=== PATIENT | male | born 1940 | race Caucasian/White ===

== ENCOUNTER 2021-03-11 13:50 | Outpatient (REF) | payer MEDICARE, OTHER, SELFPAY ==
--- NOTE | ~2021-03-11 | US_ITS ---
EXAMINATION: US RETROPERITONEAL LIMITED (RENAL ONLY) CLINICAL INFORMATION: Ligament neoplasm of left kidney. History of left kidney cryoablation. COMPARISON: Renals only ultrasound stated 03/11/2020 and 09/13/2018. CT abdomen and pelvis without and with contrast dated 03/25/2019. KUB dated 02/21/2018. X-ray abdomen dated 03/27/2017. MRI abdomen without and with contrast dated 12/26/2016. TECHNIQUE: Real-time imaging of the kidneys. Technically difficult study secondary to bowel gas. FINDINGS: RIGHT KIDNEY: 12.5 x 5.4 x 5.3 cm (SAG x AP x TRV). The kidney is normal in size, contour, and echogenicity. Renal cortical thickness is normal. There may be small peripelvic cysts. There is a 1 x 1.1 x 0.8 cm simple cortical cyst in the midpole. No renal calculi or hydronephrosis. LEFT KIDNEY: Left kidney is difficult to visualize. 11.8 x 5.8 x 5.4 cm (SAG x AP x TRV). The kidney is normal in size contour and echogenicity. There is cortical thinning or scarring in the lower pole of the left kidney. There is a duplicated left renal collecting system. There may be small peripelvic cysts. No mass or hydronephrosis is seen. US/US renal BI IMPRESSION: The left kidney is difficult to visualize by ultrasound. Bilateral renal cysts. No mass seen.
== END 2021-03-11 13:51 | disposition home or self-care (01) ==
LOC: HO.HMGCX 13:50
PROVIDERS: Visit Provider Urology
DX: C64.2 Malignant neoplasm of left kidney, except renal pelvis (principal)
CPT/HCPCS: 76775

== ENCOUNTER → 2021-03-22 10:24 | Outpatient (BNVA) | payer MEDICARE, OTHER, SELFPAY | PROVIDERS: PCP Nurse Practitioner Family; Visit Provider Urology | DX: C64.2 Malignant neoplasm of left kidney, except renal pelvis (principal) | CPT/HCPCS: 99212 ==

== ENCOUNTER 2022-03-17 11:18 | Outpatient (REF) | payer MEDICARE, OTHER, SELFPAY ==
--- NOTE | ~2022-03-17 | US_ITS ---
EXAMINATION: US RETROPERITONEAL LIMITED (RENAL ONLY) CLINICAL INFORMATION: Calculus of kidney. COMPARISON: Renal ultrasound 03/11/2021, renal ultrasound 03/11/2020, CT abdomen and pelvis 03/25/2019, x-ray KUB 02/21/2018 TECHNIQUE: Real-time imaging of the kidneys. FINDINGS: RIGHT KIDNEY: 11.8 x 5.4 x 5.1 cm (SAG x AP x TRV). The kidney is normal in size, contour, and echogenicity. Renal cortical thickness is normal. There is a 1 cm cyst exophytic to the midpole. No renal calculi or hydronephrosis. LEFT KIDNEY: 10.2 x 4.7 x 5.8 cm (SAG x AP x TRV). The kidney is normal in size, contour, and echogenicity. There is cortical thinning or scarring of the lower pole the left kidney. There are small peripelvic cysts measuring 1 cm in the lower pole and 7 x 10 mm in the upper pole. No renal calculi or hydronephrosis. US/US renal BI IMPRESSION: Small bilateral renal cysts. Cortical thinning or scarring of the lower pole of the left kidney..
== END 2022-03-17 11:19 | disposition home or self-care (01) ==
LOC: HO.US 11:18
PROVIDERS: Visit Provider Urology
DX: N20.0 Calculus of kidney (principal)
CPT/HCPCS: 76775

== ENCOUNTER → 2022-03-28 10:50 | Outpatient (BNVA) | payer MEDICARE, OTHER, SELFPAY | PROVIDERS: PCP Nurse Practitioner Family; Visit Provider Urology | DX: C64.2 Malignant neoplasm of left kidney, except renal pelvis (principal) | CPT/HCPCS: 99212 ==

== ENCOUNTER 2022-12-21 05:52 | Emergency (ER) | payer MEDICARE, OTHER, SELFPAY ==
--- NOTE | ~2022-12-21 | CT_ITS ---
EXAMINATION: CT HEAD WITHOUT CONTRAST CLINICAL INFORMATION: Altered mental status, head strike. COMPARISON: Head CT from 03/25/2017. TECHNIQUE: Contiguous axial imaging was performed from the skull base to vertex without intravenous administration of contrast. This CT examination was performed using dose optimization techniques as appropriate, variously including the following: *Automated exposure control *Adjustment of mA and/or kV according to patient size (this includes techniques or standardized protocols for targeted exams where dose is matched to indication/reason for exam; i.e. extremities or head) *Use of iterative reconstruction technique DLP: 785 mGy-cm FINDINGS: No evidence of intracranial hemorrhage, extra-axial fluid collection, focal mass effect or midline shift. The mendoza-white matter differentiation is maintained. Chronic mild patchy hypoattenuation within the supratentorial white matter is likely sequela of chronic microangiopathy. No acute findings within the posterior fossa. The cerebellar tonsils are in normal position. No calvarial fracture. The mastoid air cells are well aerated. Mild mucosal thickening of frontal sinus as well as multiple ethmoid air cells and sphenoid sinus. Several mucous retention cysts are present within maxillary sinuses (also present on 03/25/2017). No air-fluid levels within the visualized paranasal sinuses. The orbits, globes and temporomandibular joints are unremarkable. CT/CT head/brain wo IV con IMPRESSION: No acute intracranial pathology compared to prior head CT from 03/25/2017.
[2022-12-21 05:58] VITALS: BP 170/90; BP 186/89; PULSE 48; PULSE 50; RESP 12; TEMP 36.6; O2SAT 100; O2SAT 99; BMI 25.7
--- NOTE | 2022-12-21 06:04 | ECG_ITS ---
Test Reason : AMS Blood Pressure : / mmHG Vent. Rate : 047 BPM Atrial Rate : 047 BPM P-R Int : 204 ms QRS Dur : 104 ms QT Int : 474 ms P-R-T Axes : 060 044 054 degrees QTc Int : 419 ms Sinus bradycardia Otherwise normal ECG When compared with ECG of 25-MAR-2017 16:21, T wave amplitude has decreased in Lateral leads Referred By: Generic ED Physician Electronically Signed By:Javier Gutierrez
[2022-12-21 06:22] LABS: Basophils Percent Auto 0.7 % (0-2); Eosinophils Absolute Auto 0.2 X10*3/uL (0.0-0.4); Eosinophils Percent Auto 2.9 % (0-4); Hematocrit 39.2 % (42.0-52.0); Hemoglobin 14.1 g/dl (14.0-18.0); Imm Gran Abs Auto 0.02 X10*3/uL (0.00-0.03); Imm Gran Pct Auto 0.3 % (0.0-0.4); Lymphocytes Absolute Auto 1.7 X10*3/uL (1.2-4.9); Lymphocytes Percent Auto 28.9 % (20-40); MANUAL DIFF FLAG NO; Mean Corpuscular Hemoglobin 29.5 pg (27.0-33.0); Mean Platelet Volume 9.8 fL (9.4-12.4); Monocytes Absolute Auto 0.5 X10*3/uL (0.1-1.2); Monocytes Percent Auto 8.4 % (2-11); Neutrophils Absolute Auto 3.4 x10*3/uL (2.0-8.3); Neutrophils Percent Auto 58.8 % (45-73); Platelet Count 198 X10*3/uL (160-400); Red Blood Count 4.78 X10*6/uL (4.60-5.80); Red Cell Distribution Width 12.7 % (11.0-16.0); White Blood Count 5.8 X10*3/uL (4.8-10.8)
--- NOTE | 2022-12-21 06:33 | PC.NURSE ---
Pt alert to verbal stimuli and oriented to self. at bedside providing history as pt is not responding to TW questions. Will respond to 's questions appropriately. reports This is not him. He is very active . Pt lives a very active lifestyle. Walks 1.5 miles daily and is able to perform own ADL's independently according to the . This morning when awaken pt seemed more confused than usual and not responding as usual. Requested medical care to the . Breaths are even, regular, and unlabored. RR 12bpm. Sinus bennett on monitor with HR of 47. Abd soft and non tender. Skin is warm, pink, and dry. No swelling or edema noted. Incontinent of urine. Briefs removed. Condom cath applied in order to obtain a urine sample. Labs drawn and sent. 20G IV line established on the left ac. Will continue to monitor. Pending physician eval.
[2022-12-21 06:34] LABS: COVID-19 Test Negative (Negative); IDNOW Serial# 6674DD1D
[2022-12-21 06:38] LABS: Alanine Aminotransferase 16 U/L (0-40); Albumin Level 4.1 g/dL (3.5-5.0); Alkaline Phosphatase 65 U/L (39-117); Anion Gap 13 (12-20); Aspartate Amino Transferase 16 U/L (5-37); Bilirubin Total 0.9 mg/dL (0.0-1.0); Blood Urea Nitrogen 11 mg/dL (9-16); Calcium 9.1 mg/dL (8.4-10.2); Carbon Dioxide 26 mmol/L (22-29); Chloride 101 mmol/L (96-108); Creatinine Clr Calc Pharmacy 78.5; Estimated Glomerular Filt Rate > 60; Glucose Random 89 mg/dL (60-115); Potassium 4.1 mmol/L (3.3-5.1); Sodium 136 mmol/L (135-145)
--- NOTE | 2022-12-21 07:10 | PC.NURSE ---
pt is alert and oriented, to self and place-unable to state the name of the hospital or the year, pt does have some confusion at baseline per but pt has not been going to the doctors in a couple of years, no visible facial droop, no visible hand drift, hand grasp strong and equal, and moving all extremities. pt does report now that he bumped his head but does not really remember how-thinks he might have fallen, had a headache at one point and reports pt stating that he had nausea around 0500. denies pain and nausea at this time. sinus to sinus bennett on the monitor raning from 50-higher 40's.
--- NOTE | 2022-12-21 07:10 | PC.NURSE ---
Patient states now that he hit his head this morning and saw stars. Patient is awake and speaking to staff and . at bedside and states that this morning he woke up more confused than usual and that he was feeling sick and wanted to come in and see the doctor.
--- NOTE | 2022-12-21 07:30 | ED_ITS ---
HPI - Nausea/Vomiting/Diarrhea General Chief complaint: Altered Mental Status Stated complaint: Abd Pain Time Seen by Provider: 12/21/22 07:17 Source: patient and family (, [place]) Mode of arrival: EMS Limitations: other (Memory deficits) History of Present Illness HPI Narrative: 82-year-old male who presents emergency department for evaluation of nausea and possible fall with head injury. According to his , she sleeps on a sofa downstairs in the patient sleeps in a bed upstairs. The patient normally has no complaints but this morning he was complaining of nausea and not feeling well at around 05:00 hours. He told his that he wanted to go to the hospital by ambulance which is very unusual. Here in the emergency department the patient told me that he fell and hit his head however the did not witness this. The patient does have difficulty with memory and has not been diagnosed with d ementia but according to the , he does not sees his doctor. The is also concerned that the patient has poor nutrition and that he may be B12 deficient. The patient told me that he is feeling well, his nausea resolved any wants to go home. Related Data Allergies Allergy/AdvReac Type Severity Reaction Status Date / Time No Known Allergies Allergy Verified 03/28/22 11:04 [No Known Allergies*] tramadol AdvReac Unknown Severe Verified 03/28/22 11:04 Constipation Review of Systems Review of Systems: Yes all other systems are reviewed and are negative [facility] Past Medical History [facility] Narrative: Social history: He lives with his . He does not smoke cigarettes, drink alcohol or use drugs. Medical History H/O urinary retention Left inguinal hernia Malignant neoplasm of left kidney Renal cell carcinoma of left kidney Renal mass Right inguinal hernia Surgical History History of surgery Social History Social History Alcohol intake: never Smoked in Last 30 Days: No Use of substances other than those prescribed or required for medical reasons: No Advance Directives: Yes Advance Directives Information Provided: No Advance Directives on File: No Physical Exam Vital Signs: Vital Signs: Last Vital Signs Temp 97.9 F 12/21/22 05:58 Pulse 54 12/21/22 07:44 Resp 18 12/21/22 07:44 BP 214/105 H 12/21/22 07:44 Pulse Ox 100 12/21/22 07:44 O2 Del Method 12/21/22 07:44 BMI result Body Mass Index 25.7 Const: Other: Awake, alert, male patient does not appear to be in distress, does defer to his to answer most questions Orientation/consciousness: oriented to person HEENT: Head: Yes normal to inspection, Yes normocephalic and Yes atraumatic Ears: external ears normal General nose exam: Normal external nose present Face and sinus: Yes normal facial exam Mouth: Normal oral and palatal mucosa present Throat: Yes posterior oropharynx normal Eyes: General: appearance normal, both eyes and all related structures Pupils: Equal, round and reactive pupils present Neck: Neck: Yes normal visual inspection, Yes no lymphadenopathy, Yes trachea midline and Yes supple Chest: Chest palpation & inspection: normal inspection of the chest and normal palpation of entire chest wall Resp: Effort & Inspection: normal respiratory effort and able to speak in complete sentences Auscultation: clear to auscultation bilaterally Cardio: Rate: regular rate Rhythm: regular rhythm Heart sounds: S1 normal heart sound present, S2 normal heart sound present and no murmurs GI: Inspection: Yes normal to inspection Palpation (GI): Soft to palpation, nontender and no guarding Auscultation: normal bowel sounds : General: Yes no CVA tenderness Back/Spine/Pelvis: Back: no CVA tenderness Neuro: General: oriented to person Cranial nerves: Yes CN's II-XII intact bilaterally and Yes Equal, round and reactive pupils present Cognition (Neuro): normal cognition Motor exam (neuro): 5/5 motor strength present throughout Extrem: General: Yes normal to inspection Psych: Appearance: grossly normal Speech and movement: Normal speech and movement present Affect: normal affect Attitude: cooperative Medical Decision Making Medical Decision Making MDM Narrative: 82-year-old male who presents emergency department for evaluation of nausea and possible fall with head injury. The patient does have memory deficits and undiagnosed dementia according to his . The does not live in the same room as the patient and did not witness the fall however the patient was complaining of not feeling well and nausea which has resolved. Patient's physical examination was unremarkable. Vital signs did reveal an elevated blood pressure of 186/89 with bradycardia with a heart rate of 48 otherwise were unremarkable. His exam was also unremarkable with a normal neurologic exam and no obvious evidence for head injury. I ordered a laboratory evaluation to include CBC, CMP, COVID-19, urinalysis, B12 and folate. 0739: Laboratory interpretation: CBC normal. CMP normal. COVID-19 negative. B12 and folate levels pending. Twelve EKG revealed a sinus bradycardia otherwise was unremarkable. 0820: The patient's CT scan of the brain revealed no acute findings, patient has chronic microangiopathic changes which is consistent with his age. The patient did have elevated blood pressures which could be related to stress and anxiety. I did discuss this with the patient's . I advised the to get a home blood pressure cough and to check the patient's blood pressure once in the morning for the next 2 weeks and discuss these readings with his PCP to see if he needs to be on blood pressure medication shots. Lab Data [facility] Lab Attestation statement: I reviewed the patient's lab results. See [facility] for discussion 12/21/22 06:14 12/21/22 06:14 Labs: Lab Results 12/21/22 12/21/22 12/21/22 Range/Units 06:14 06:14 06:14 WBC 5.8 (4.8-10.8) X10*3/uL RBC 4.78 (4.60-5.80) X10*6/uL Hgb 14.1 (14.0-18.0) g/dl Hct 39.2 L (42.0-52.0) % MCV 82.0 (80.0-98.0) fL MCH 29.5 (27.0-33.0) pg MCHC 36.0 (31.0-36.0) g/dl RDW 12.7 (11.0-16.0) % Plt Count 198 (160-400) X10*3/uL MPV 9.8 (9.4-12.4) fL Immature Gran % (Auto) 0.3 (0.0-0.4) % Neut % (Auto) 58.8 (45-73) % Lymph % (Auto) 28.9 (20-40) % Eagle % (Auto) 8.4 (2-11) % Eos % (Auto) 2.9 (0-4) % Baso % (Auto) 0.7 (0-2) % Lymph # (Auto) 1.7 (1.2-4.9) X10*3/uL Eagle # (Auto) 0.5 (0.1-1.2) X10*3/uL Eos # (Auto) 0.2 (0.0-0.4) X10*3/uL Baso # (Auto) 0.0 (0.0-0.2) X10*3/uL Abs Immat Gran (auto) 0.02 (0.00-0.03) X10*3/uL Absolute Neuts (auto) 3.4 (2.0-8.3) x10*3/uL Absolute Nucleated RBC 0.000 (0.0-0.012) X10*3/uL Nucleated RBC % (auto) 0.0 (0.0-0.2) /100WBC Sodium 136 (135-145) mmol/L Potassium 4.1 (3.3-5.1) mmol/L Chloride 101 (96-108) mmol/L Carbon Dioxide 26 (22-29) mmol/L Anion Gap 13 (12-20) BUN 11 (9-16) mg/dL Creatinine 0.81 (0.5-1.4) mg/dL Estim Creat Clear Calc 78.5 Estimated GFR > 60 Random Glucose 89 (60-115) mg/dL Calcium 9.1 (8.4-10.2) mg/dL Total Bilirubin 0.9 (0.0-1.0) mg/dL AST 16 (5-37) U/L ALT 16 (0-40) U/L Alkaline Phosphatase 65 (39-117) U/L Total Protein 6.0 L (6.5-8.0) g/dL Albumin 4.1 (3.5-5.0) g/dL Urine Color Urine Appearance Urine pH (5.0-9.0) Ur Specific [place] (1.005-1.025) Urine Protein (Neg-Trace) mg/dL Urine Glucose (UA) (Negative) mg/dL Urine Ketones (Negative) mg/dL Urine Blood (Negative) Urine Nitrite (Negative) Ur Leukocyte Esterase (Negative) COVID-19 (FRANCES) Negative (Negative) COVID-19 Clin Com See Note 12/21/22 Range/Units 07:54 WBC (4.8-10.8) X10*3/uL RBC (4.60-5.80) X10*6/uL Hgb (14.0-18.0) g/dl Hct (42.0-52.0) % MCV (80.0-98.0) fL MCH (27.0-33.0) pg MCHC (31.0-36.0) g/dl RDW (11.0-16.0) % Plt Count (160-400) X10*3/uL MPV (9.4-12.4) fL Immature Gran % (Auto) (0.0-0.4) % Neut % (Auto) (45-73) % Lymph % (Auto) (20-40) % Eagle % (Auto) (2-11) % Eos % (Auto) (0-4) % Baso % (Auto) (0-2) % Lymph # (Auto) (1.2-4.9) X10*3/uL Eagle # (Auto) (0.1-1.2) X10*3/uL Eos # (Auto) (0.0-0.4) X10*3/uL Baso # (Auto) (0.0-0.2) X10*3/uL Abs Immat Gran (auto) (0.00-0.03) X10*3/uL Absolute Neuts (auto) (2.0-8.3) x10*3/uL Absolute Nucleated RBC (0.0-0.012) X10*3/uL Nucleated RBC % (auto) (0.0-0.2) /100WBC Sodium (135-145) mmol/L Potassium (3.3-5.1) mmol/L Chloride (96-108) mmol/L Carbon Dioxide (22-29) mmol/L Anion Gap (12-20) BUN (9-16) mg/dL Creatinine (0.5-1.4) mg/dL Estim Creat Clear Calc Estimated GFR Random Glucose (60-115) mg/dL Calcium (8.4-10.2) mg/dL Total Bilirubin (0.0-1.0) mg/dL AST (5-37) U/L ALT (0-40) U/L Alkaline Phosphatase (39-117) U/L Total Protein (6.5-8.0) g/dL Albumin (3.5-5.0) g/dL Urine Color Yellow Urine Appearance Clear Urine pH 8.0 (5.0-9.0) Ur Specific [place] <= 1.005 (1.005-1.025) Urine Protein Negative (Neg-Trace) mg/dL Urine Glucose (UA) Negative (Negative) mg/dL Urine Ketones Negative (Negative) mg/dL Urine Blood Negative (Negative) Urine Nitrite Negative (Negative) Ur Leukocyte Esterase Negative (Negative) COVID-19 (FRANCES) (Negative) COVID-19 Clin Com Independent Interpretation I performed an independent interpretation of an: EKG Interpretation: A 12 EKG done at 0610 hours interpreted by me as follows: Sinus bradycardia with a rate of 47, prolonged NE interval of 204 milliseconds, prolonged QRS of 104 milliseconds, normal QTC of 419 milliseconds, no ST segment elevation, no ST segment depression, no PVCs, no PACs. Radiology Impression Discussion of test interpretation with radiology: I have reviewed the radiologist's reading. Radiologist Impression: CT head/brain wo IV con FINDINGS: No evidence of intracranial hemorrhage, extra-axial fluid collection, focal mass effect or midline shift. The mendoza-white matter differentiation is maintained. Chronic mild patchy hypoattenuation within the supratentorial white matter is likely sequela of chronic microangiopathy. No acute findings within the posterior fossa. The cerebellar tonsils are in normal position. No calvarial fracture. The mastoid air cells are well aerated. Mild mucosal thickening of frontal sinus as well as multiple ethmoid air cells and sphenoid sinus. Several mucous retention cysts are present within maxillary sinuses (also present on 03/25/2017). No air-fluid levels within the visualized paranasal sinuses. The orbits, globes and temporomandibular joints are unremarkable. IMPRESSION: No acute intracranial pathology compared to prior head CT from 03/25/2017. Dictated By:John Rae MDSigned By:<Electronically signed by John Rae MD in [place]>12/21/22 0749 Discharge Plan Discharge Clinical Impression: Nausea, Elevated blood pressure reading Closed head injury Qualifiers: Encounter type: initial encounter Qualified Code(s): S09.90XA - Unspecified injury of head, initial encounter Patient Disposition: Home, Self-Care Instructions: Head Injury (ED) Additional Instructions: Your blood work was normal pain Your CT scan of the brain without IV contrast did not reveal any skull fracture or bleeding in the brain from your fall. You did have elevated blood pressure readings here in the emergency department, this can sometimes be caused by stress and anxiety when you here in the emergency department. I want you to purchase an automatic blood pressure cuff that you can use at home. I want you to check your blood pressure in the morning for the next 2 weeks, write these readings down. You need to follow-up with your doctor in 2 weeks to review these readings and to determine if you need to be on blood pressure medications. If you get started on a blood pressure medication, it will take 4-6 weeks for the medication to take effect and lower your blood pressure pain. Lowering someone's blood pressure to rapidly can cause side effects such as lig htheadedness, dizziness and weakness.
[2022-12-21 07:44] VITALS: BP 214/105; PULSE 54; RESP 18; O2SAT 100
[2022-12-21 08:03] LABS: Appearance Urine Clear; Color Urine Yellow; Glucose Urine UA Negative (Negative); Leukocyte Esterase Urine Negative (Negative); Nitrite Urine Negative (Negative); Specific Gravity - Urine <= 1.005 (1.005-1.025); Urine Blood Negative (Negative); Urine Ketones Negative (Negative); Urine Protein Negative (Neg-Trace)
[2022-12-21 08:37] VITALS: BP 174/81; PULSE 49; RESP 18
[2022-12-21 09:28] LABS: Folate 12.8 ng/mL (> or = 4.0); Vitamin B12 427 pg/mL (200-900)
== END 2022-12-21 08:51 | disposition home or self-care (01) ==
PROVIDERS: Emergency Provider Emergency Medicine Emergency Medical Services; PCP Nurse Practitioner Family
DX: S09.90XA Unspecified injury of head, initial encounter (principal); W19.XXXA Unspecified fall, initial encounter; Z20.822 Contact with and (suspected) exposure to COVID-19; Y93.9 Activity, unspecified; Y92.013 Bedroom of single-family (private) house as the place of occurrence of the external cause; Y99.9 Unspecified external cause status
CPT/HCPCS: 70450; 80053; 81003; 82607; 82746; 85025; 87635; 93005; 99284

== ENCOUNTER 2023-02-19 07:27 | Outpatient (REF) | payer MEDICARE, OTHER, SELFPAY ==
[2023-02-19 11:20] LABS: MANUAL DIFF FLAG NO
[2023-02-19 11:37] LABS: Basophils Absolute Auto 0.1 X10*3/uL (0.0-0.2); Basophils Percent Auto 0.9 % (0-2); Eosinophils Absolute Auto 0.2 X10*3/uL (0.0-0.4); Eosinophils Percent Auto 3.4 % (0-4); Hematocrit 40.8 % (42.0-52.0); Imm Gran Abs Auto 0.02 X10*3/uL (0.00-0.03); Imm Gran Pct Auto 0.4 % (0.0-0.4); Lymphocytes Absolute Auto 1.5 X10*3/uL (1.2-4.9); Lymphocytes Percent Auto 25.6 % (20-40); Mean Corpuscular HGB Conc 34.3 g/dl (31.0-36.0); Mean Corpuscular Hemoglobin 28.6 pg (27.0-33.0); Mean Corpuscular Volume 83.3 fL (80.0-98.0); Mean Platelet Volume 9.3 fL (9.4-12.4); Monocytes Absolute Auto 0.4 X10*3/uL (0.1-1.2); Monocytes Percent Auto 7.6 % (2-11); Neutrophils Absolute Auto 3.5 x10*3/uL (2.0-8.3); Neutrophils Percent Auto 62.1 % (45-73); Platelet Count 198 X10*3/uL (160-400); Red Cell Distribution Width 12.7 % (11.0-16.0); White Blood Count 5.7 X10*3/uL (4.8-10.8)
[2023-02-19 11:52] LABS: Alanine Aminotransferase 16 U/L (0-40); Albumin Level 4.6 g/dL (3.5-5.0); Alkaline Phosphatase 67 U/L (39-117); Anion Gap 10 (12-20); Aspartate Amino Transferase 18 U/L (5-37); Blood Urea Nitrogen 10 mg/dL (9-16); Calcium 9.4 mg/dL (8.4-10.2); Carbon Dioxide 32 mmol/L (22-29); Chloride 96 mmol/L (96-108); Cholesterol 225 mg/dL; Estimated Glomerular Filt Rate > 60; Glucose Fasting 94 mg/dL (60-99); HDL Cholesterol 70 mg/dL; LDL Cholesterol Calculated 134 mg/dl; Potassium 4.7 mmol/L (3.3-5.1); Sodium 133 mmol/L (135-145); Total Protein 6.7 g/dL (6.5-8.0); Triglycerides 105 mg/dL
[2023-02-19 12:20] LABS: TSH reflex Free T4 5.18 uIU/mL (0.32-4.0); Vitamin B12 439 pg/mL (200-900)
[2023-02-19 13:11] LABS: Free T4 (Free Thyroxine) 1.09 ng/dL (0.71-1.85)
[2023-02-24 15:48] LABS: Vitamin D 25-OH, D2 <4 ng/mL; Vitamin D 25-OH, D3 26 ng/mL; Vitamin D 25-OH, Total 26 ng/mL (30-100)
== END 2023-02-19 07:28 | disposition home or self-care (01) ==
LOC: HO.HMGCLDS 07:27
PROVIDERS: PCP Internal Medicine; Visit Provider Internal Medicine
DX: Z00.01 Encounter for general adult medical examination with abnormal findings (principal); R03.0 Elevated blood-pressure reading, without diagnosis of hypertension; G47.9 Sleep disorder, unspecified; R41.0 Disorientation, unspecified; R53.83 Other fatigue; Z13.220 Encounter for screening for lipoid disorders
CPT/HCPCS: 36415; 80053; 80061; 82306; 82607; 84439; 84443; 85025

== ENCOUNTER 2023-02-20 12:55 | Outpatient (REF) | payer MEDICARE, OTHER, SELFPAY ==
--- NOTE | ~2023-02-20 | US_ITS ---
EXAMINATION: US RETROPERITONEAL LIMITED (RENAL ONLY) CLINICAL INFORMATION: Malignant neoplasm RCC of left kidney, except renal pelvis. COMPARISON: Ultrasound retroperitoneal limited (renal only) 03/17/2022, 03/11/2021, 09/13/2018. TECHNIQUE: Real-time imaging of the kidneys. FINDINGS: RIGHT KIDNEY: 12.2 x 4.6 x 5.8 cm (SAG x AP x TRV). The kidney is normal in size, contour, and echogenicity. Renal cortical thickness is normal. No renal calculi or hydronephrosis. 1.2 cm simple cyst in the lateral mid kidney. No follow-up imaging is recommended. LEFT KIDNEY: 12.5 x 5.1 x 5.9 cm (SAG x AP x TRV). The kidney is normal in size, contour, and echogenicity. Renal cortical thickness is normal. No renal calculi or hydronephrosis. 1.4 x 1.3 x 1.2 cm heterogeneous mass in the lower pole without discernible vascularity. This was not seen on the prior 2 ultrasounds but is stable to slightly decreased from the ultrasound of 09/13/2018 when it measured 1.8 x 1.3 x 1.6 cm 2.3 cm simple cyst in the lower pole. No follow-up imaging is recommended. US/US renal BI IMPRESSION: 1.4 cm avascular heterogeneous mass in the lower pole of the left kidney consistent with prior cryoablation as reported. This mass was not distinctly seen on the two most recent ultrasound, however it is stable to mildly increased from 09/13/2018 when it measured 1.8 cm. Continued follow-up is recommended.
== END 2023-02-20 12:56 | disposition home or self-care (01) ==
LOC: HO.HMGCX 12:55
PROVIDERS: PCP Nurse Practitioner Family; Visit Provider Urology
DX: C64.2 Malignant neoplasm of left kidney, except renal pelvis (principal)
CPT/HCPCS: 76775

== ENCOUNTER 2023-03-27 11:24 | Outpatient (REF) | payer MEDICARE, OTHER, SELFPAY | END 2023-03-27 11:25 | disposition home or self-care (01) | LOC: HO.HMGCX 11:24 | PROVIDERS: PCP Internal Medicine; Visit Provider Urology | DX: Z13.89 Encounter for screening for other disorder (principal) ==

== ENCOUNTER 2023-04-02 13:37 | Outpatient (REF) | payer MEDICARE, OTHER, SELFPAY ==
[2023-04-02 17:41] LABS: Anion Gap 13 (12-20); Blood Urea Nitrogen 12 mg/dL (9-16); Carbon Dioxide 23 mmol/L (22-29); Chloride 97 mmol/L (96-108); Estimated Glomerular Filt Rate > 60; Glucose Random 137 mg/dL (60-115); Potassium 4.2 mmol/L (3.3-5.1); Sodium 129 mmol/L (135-145)
[2023-04-02 17:58] LABS: TSH reflex Free T4 4.07 uIU/mL (0.32-4.0)
[2023-04-02 18:31] LABS: Free T4 (Free Thyroxine) 0.92 ng/dL (0.71-1.85)
== END 2023-04-02 13:38 | disposition home or self-care (01) ==
LOC: HO.HMGCLDS 13:37
PROVIDERS: PCP Internal Medicine; Visit Provider Internal Medicine
DX: R79.89 Other specified abnormal findings of blood chemistry (principal); E87.1 Hypo-osmolality and hyponatremia
CPT/HCPCS: 36415; 80048; 84439; 84443

== ENCOUNTER 2023-04-03 13:31 | Emergency (ER) | payer MEDICARE, OTHER, SELFPAY ==
[2023-04-03 13:46] VITALS: BP 128/89; PULSE 58; RESP 18; TEMP 36.4; O2SAT 96; BMI 23.7
--- NOTE | 2023-04-03 13:48 | ED.RECABL ---
HPI - Recheck/Abnormal Lab/Rx General Chief Complaint: Recheck/Abnormal Lab/Rx Stated Complaint: Low Sodium Level Time Seen by Provider: 04/03/23 19:29 Source: patient, family (), RN notes reviewed and old records reviewed Mode of arrival: ambulatory Limitations: other (Patient is a poor historian) History of Present Illness HPI narrative: 82-year-old male past medical history significant for hypothyroidism, history of renal cell carcinoma, dementia presents for evaluation of ?low sodium. ? Patient had outpatient blood work done yesterday He and his received a phone call that the patient's sodium was 129 and he had to get to the emergency department The patient reports that he has no complaints The patient's states that he is baseline confused but she has not noticed any changes mental status He is not on any diuretics The patient's states that he drinks to being glasses of water every morning. Related Data Home Medications Medication Instructions Recorded Confirmed No Known Home Meds 02/16/23 02/16/23 Allergies Allergy/AdvReac Type Severity Reaction Status Date / Time tramadol AdvReac Unknown Severe Verified 04/03/23 13:45 Constipation Review of Systems Constitutional: Constitutional: Reports as per HPI, Denies chills, Denies fatigue, Denies fever(s) and Denies headache(s) ENT: Denies headache(s) Cardiovascular: Cardiovascular: Denies chest pain and Denies dyspnea Respiratory: Respiratory: Denies cough and Denies dyspnea Gastrointestinal: Gastrointestinal: Denies abdominal pain, Denies constipation and Denies vomiting Genitourinary: Genitourinary: Denies difficulty urinating and Denies dysuria Neurologic: Denies headache(s) and Denies focal weakness Endocrine: Endocrine: Denies fatigue [facility] Past Medical History Medical History H/O urinary retention Left inguinal hernia Malignant neoplasm of left kidney Renal cell carcinoma of left kidney Renal mass Right inguinal hernia Surgical History History of surgery Social History Social History Alcohol intake: never Patient Tobacco Use Status: Never used Tobacco Advance Directives: No Advance Directives Information Provided: Yes Cognitive needs: No Hearing needs: No Vision needs: Yes Physical Exam Vital Signs: Vital Signs: Last Vital Signs Temp 96.8 F 04/03/23 17:27 Pulse 51 04/03/23 17:27 Resp 16 04/03/23 17:27 BP 153/99 H 04/03/23 17:27 Pulse Ox 97 04/03/23 17:27 O2 Del Method Room Air 04/03/23 17:27 BMI result Body Mass Index 23.7 Const: General: healthy appearing, comfortable, no acute distress, alert and awake Nutritional Appearance: well nourished Orientation/consciousness: patient oriented x3 HEENT: Head: Yes normocephalic and Yes atraumatic Throat: Yes posterior oropharynx normal Eyes: Eyelids: Yes eyelids normal Conjunctivae: conjunctivae normal Sclerae: sclerae normal Corneas: corneas normal Pupils: Equal, round and reactive pupils present EOM: EOMs intact bilaterally Neck: Neck: Yes full ROM Resp: Effort & Inspection: normal respiratory effort, able to speak in complete sentences and not labored Skin: General skin exam: no rashes or lesions noted and elasticity normal Neuro: General: patient oriented x3 Cranial nerves: Yes CN's II-XII intact bilaterally, Yes Equal, round and reactive pupils present and Yes Bilaterally intact EOM present Cognition (Neuro): normal cognition Course Course Course Narrative: RME - 82 yo male with history of RCC in 2017 with chronic confusion for the last 8-9 months who presents to the ER for evaluation of sodium of 129 on outpatient labs done yesterday. It was 133 a month ago. He is chronically confused per his , but it is mild without any significant changes lately. She has been keeping him hydrated with a couple of Gatorades and a couple glasses of water per day. No seizure activity, N/V/D. Plan: repeat labs, Uosm, Doron Medical Decision Making Medical Decision Making MDM Narrative: 82-year-old male presents for evaluation of hyponatremia. Apparently his outpatient labs were 129. His repeat today was 131. He has had no change in mental status. He is not on any diuretics. I encouraged the to get the patient more Gatorade and electrolyte based fluids instead of just plain drinking water. Will give the patient 1 L of IV fluid/normal saline to help address the hyponatremia, but he will follow-up with his PCP as an outpatient Differential Diagnosis Hyponatremia Hypovolemia SIADH Metabolic abnormality Hypervolemia Lab Data [facility] Lab Attestation statement: I reviewed the patient's lab results. (Sodium of 131. Normal random urine) 04/03/23 13:54 04/03/23 13:54 Labs: Lab Results 04/03/23 04/03/23 04/03/23 Range/Units 13:54 13:54 13:54 WBC 7.5 (4.8-10.8) X10*3/uL RBC 4.36 L (4.60-5.80) X10*6/uL Hgb 12.7 L (14.0-18.0) g/dl Hct 36.1 L (42.0-52.0) % MCV 82.8 (80.0-98.0) fL MCH 29.1 (27.0-33.0) pg MCHC 35.2 (31.0-36.0) g/dl RDW 12.6 (11.0-16.0) % Plt Count 179 (160-400) X10*3/uL MPV 8.6 L (9.4-12.4) fL Immature Gran % (Auto) 0.4 (0.0-0.4) % Neut % (Auto) 66.0 (45-73) % Lymph % (Auto) 23.1 (20-40) % [place] % (Auto) 7.8 (2-11) % Eos % (Auto) 2.3 (0-4) % Baso % (Auto) 0.4 (0-2) % Lymph # (Auto) 1.7 (1.2-4.9) X10*3/uL [place] # (Auto) 0.6 (0.1-1.2) X10*3/uL Eos # (Auto) 0.2 (0.0-0.4) X10*3/uL Baso # (Auto) 0.0 (0.0-0.2) X10*3/uL Abs Immat Gran (auto) 0.03 (0.00-0.03) X10*3/uL Absolute Neuts (auto) 5.0 (2.0-8.3) x10*3/uL Absolute Nucleated RBC 0.000 (0.0-0.012) X10*3/uL Nucleated RBC % (auto) 0.0 (0.0-0.2) /100WBC Sodium 131 L (135-145) mmol/L Potassium 4.5 (3.3-5.1) mmol/L Chloride 98 (96-108) mmol/L Carbon Dioxide 23 (22-29) mmol/L Anion Gap 15 (12-20) BUN 11 (9-16) mg/dL Creatinine 0.73 (0.5-1.4) mg/dL Estim Creat Clear Calc 87.1 Estimated GFR > 60 Random Glucose 98 (60-115) mg/dL Osmolality 270 L (281-305) mosm/kg Calcium 9.3 (8.4-10.2) mg/dL Magnesium 2.0 (1.6-2.6) mg/dL Total Bilirubin 0.4 (0.0-1.0) mg/dL Direct Bilirubin 0.1 (0.0-0.5) mg/dL AST 28 (5-37) U/L ALT 20 (0-40) U/L Alkaline Phosphatase 58 (39-117) U/L Total Protein 6.2 L (6.5-8.0) g/dL Albumin 4.0 (3.5-5.0) g/dL Urine Color Urine Appearance Urine pH (5.0-9.0) Ur Specific [place] (1.005-1.025) Urine Protein (Neg-Trace) mg/dL Urine Glucose (UA) (Negative) mg/dL Urine Ketones (Negative) mg/dL Urine Blood (Negative) Urine Nitrite (Negative) Ur Leukocyte Esterase (Negative) Urine Osmolality (373-1093) mosm/kg Ur Random Sodium mmol/L 04/03/23 04/03/23 04/03/23 Range/Units 17:34 17:34 17:34 WBC (4.8-10.8) X10*3/uL RBC (4.60-5.80) X10*6/uL Hgb (14.0-18.0) g/dl Hct (42.0-52.0) % MCV (80.0-98.0) fL MCH (27.0-33.0) pg MCHC (31.0-36.0) g/dl RDW (11.0-16.0) % Plt Count (160-400) X10*3/uL MPV (9.4-12.4) fL Immature Gran % (Auto) (0.0-0.4) % Neut % (Auto) (45-73) % Lymph % (Auto) (20-40) % [place] % (Auto) (2-11) % Eos % (Auto) (0-4) % Baso % (Auto) (0-2) % Lymph # (Auto) (1.2-4.9) X10*3/uL [place] # (Auto) (0.1-1.2) X10*3/uL Eos # (Auto) (0.0-0.4) X10*3/uL Baso # (Auto) (0.0-0.2) X10*3/uL Abs Immat Gran (auto) (0.00-0.03) X10*3/uL Absolute Neuts (auto) (2.0-8.3) x10*3/uL Absolute Nucleated RBC (0.0-0.012) X10*3/uL Nucleated RBC % (auto) (0.0-0.2) /100WBC Sodium (135-145) mmol/L Potassium (3.3-5.1) mmol/L Chloride (96-108) mmol/L Carbon Dioxide (22-29) mmol/L Anion Gap (12-20) BUN (9-16) mg/dL Creatinine (0.5-1.4) mg/dL Estim Creat Clear Calc Estimated GFR Random Glucose (60-115) mg/dL Osmolality (281-305) mosm/kg Calcium (8.4-10.2) mg/dL Magnesium (1.6-2.6) mg/dL Total Bilirubin (0.0-1.0) mg/dL Direct Bilirubin (0.0-0.5) mg/dL AST (5-37) U/L ALT (0-40) U/L Alkaline Phosphatase (39-117) U/L Total Protein (6.5-8.0) g/dL Albumin (3.5-5.0) g/dL Urine Color Yellow Urine Appearance Clear Urine pH 7.0 (5.0-9.0) Ur Specific [place] 1.010 (1.005-1.025) Urine Protein Negative (Neg-Trace) mg/dL Urine Glucose (UA) Negative (Negative) mg/dL Urine Ketones Negative (Negative) mg/dL Urine Blood Negative (Negative) Urine Nitrite Negative (Negative) Ur Leukocyte Esterase Negative (Negative) Urine Osmolality 264 L (373-1093) mosm/kg Ur Random Sodium 73.0 mmol/L Discharge Plan Discharge Clinical Impression: Acute hyponatremia Patient Disposition: Home, Self-Care Instructions: Hyponatremia (ED) Additional Instructions: Avoid excessive consumption of plain drinking water. Due to the low sodium, you should increase salt intake/fluids with electrolytes such as Gatorade Follow-up with your primary doctor for a repeat sodium level within the next week Prescriptions: No Action No Known Home Meds
[2023-04-03 14:00] LABS: MANUAL DIFF FLAG NO
[2023-04-03 14:01] LABS: Basophils Percent Auto 0.4 % (0-2); Eosinophils Absolute Auto 0.2 X10*3/uL (0.0-0.4); Eosinophils Percent Auto 2.3 % (0-4); Hematocrit 36.1 % (42.0-52.0); Hemoglobin 12.7 g/dl (14.0-18.0); Imm Gran Abs Auto 0.03 X10*3/uL (0.00-0.03); Imm Gran Pct Auto 0.4 % (0.0-0.4); Lymphocytes Absolute Auto 1.7 X10*3/uL (1.2-4.9); Lymphocytes Percent Auto 23.1 % (20-40); Mean Corpuscular HGB Conc 35.2 g/dl (31.0-36.0); Mean Corpuscular Hemoglobin 29.1 pg (27.0-33.0); Mean Corpuscular Volume 82.8 fL (80.0-98.0); Mean Platelet Volume 8.6 fL (9.4-12.4); Monocytes Absolute Auto 0.6 X10*3/uL (0.1-1.2); Monocytes Percent Auto 7.8 % (2-11); Platelet Count 179 X10*3/uL (160-400); Red Blood Count 4.36 X10*6/uL (4.60-5.80); Red Cell Distribution Width 12.6 % (11.0-16.0); White Blood Count 7.5 X10*3/uL (4.8-10.8)
[2023-04-03 14:11] LABS: Osmolality, Serum 270 mosm/kg (281-305)
[2023-04-03 14:23] LABS: Alanine Aminotransferase 20 U/L (0-40); Alkaline Phosphatase 58 U/L (39-117); Anion Gap 15 (12-20); Aspartate Amino Transferase 28 U/L (5-37); Bilirubin Direct 0.1 mg/dL (0.0-0.5); Bilirubin Total 0.4 mg/dL (0.0-1.0); Blood Urea Nitrogen 11 mg/dL (9-16); Calcium 9.3 mg/dL (8.4-10.2); Carbon Dioxide 23 mmol/L (22-29); Chloride 98 mmol/L (96-108); Creatinine Clr Calc Pharmacy 87.1; Estimated Glomerular Filt Rate > 60; Glucose Random 98 mg/dL (60-115); Potassium 4.5 mmol/L (3.3-5.1); Sodium 131 mmol/L (135-145); Total Protein 6.2 g/dL (6.5-8.0)
[2023-04-03 17:27] VITALS: BP 153/99; PULSE 51; RESP 16; TEMP 36; O2SAT 97
--- NOTE | 2023-04-03 17:36 | MHC.EDTECH ---
PATIENT URINE SAMPLE COLLECTED AND SENT TO LAB .
[2023-04-03 17:46] LABS: Appearance Urine Clear; Color Urine Yellow; Glucose Urine UA Negative (Negative); Leukocyte Esterase Urine Negative (Negative); Nitrite Urine Negative (Negative); Urine Blood Negative (Negative); Urine Ketones Negative (Negative); Urine Protein Negative (Neg-Trace)
[2023-04-03 18:14] LABS: Osmolality Urine 264 mosm/kg (373-1093)
[2023-04-03 19:45] VITALS: BP 138/72; PULSE 53; RESP 18; TEMP 37; O2SAT 98
[2023-04-03] MEDS: 0.9 % Sodium Chloride 1,000 ML 999 ML IV (20:27)
== END 2023-04-03 21:10 | disposition home or self-care (01) ==
PROVIDERS: Physician Assistant; Emergency Provider Student in an Organized Health Care Education/Training Program; PCP Internal Medicine
DX: E87.1 Hypo-osmolality and hyponatremia (principal); Z79.899 Other long term (current) drug therapy
CPT/HCPCS: 36415; 80048; 80076; 81003; 83735; 83930; 83935; 84300; 85025; 99283; 99284

== ENCOUNTER 2023-05-13 22:42 | Inpatient (IN) | payer MEDICARE, OTHER, SELFPAY ==
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
[2023-05-13 23:36] VITALS: BP 200/100; PULSE 101; TEMP 36.9; O2SAT 100; BMI 23.8
[2023-05-14 00:51] LABS: MANUAL DIFF FLAG NO
[2023-05-14 00:53] LABS: Basophils Percent Auto 0.5 % (0-2); Eosinophils Absolute Auto 0.1 X10*3/uL (0.0-0.4); Eosinophils Percent Auto 1.7 % (0-4); Hematocrit 34.9 % (42.0-52.0); Hemoglobin 12.3 g/dl (14.0-18.0); Imm Gran Abs Auto 0.02 X10*3/uL (0.00-0.03); Imm Gran Pct Auto 0.3 % (0.0-0.4); Lymphocytes Absolute Auto 1.5 X10*3/uL (1.2-4.9); Lymphocytes Percent Auto 19.1 % (20-40); Mean Corpuscular HGB Conc 35.2 g/dl (31.0-36.0); Mean Corpuscular Volume 82.3 fL (80.0-98.0); Monocytes Absolute Auto 0.6 X10*3/uL (0.1-1.2); Monocytes Percent Auto 8.2 % (2-11); Neutrophils Absolute Auto 5.5 x10*3/uL (2.0-8.3); Neutrophils Percent Auto 70.2 % (45-73); Platelet Count 211 X10*3/uL (160-400); Red Blood Count 4.24 X10*6/uL (4.60-5.80); White Blood Count 7.9 X10*3/uL (4.8-10.8)
[2023-05-14 00:54] LABS: Appearance Urine Clear; Color Urine Yellow; Glucose Urine UA Negative (Negative); Leukocyte Esterase Urine Negative (Negative); Nitrite Urine Negative (Negative); Specific Gravity - Urine <= 1.005 (1.005-1.025); Urine Blood Negative (Negative); Urine Ketones Negative (Negative); Urine Protein Negative (Neg-Trace)
[2023-05-14 01:14] LABS: Alanine Aminotransferase 17 U/L (0-40); Albumin Level 3.9 g/dL (3.5-5.0); Alkaline Phosphatase 70 U/L (39-117); Anion Gap 15 (12-20); Aspartate Amino Transferase 20 U/L (5-37); Bilirubin Total 0.4 mg/dL (0.0-1.0); Blood Urea Nitrogen 9 mg/dL (9-16); Carbon Dioxide 23 mmol/L (22-29); Chloride 99 mmol/L (96-108); Creatinine Clr Calc Pharmacy 79.8; Estimated Glomerular Filt Rate > 60; Glucose Random 120 mg/dL (60-115); Potassium 3.7 mmol/L (3.3-5.1); Sodium 133 mmol/L (135-145); Total Protein 6.2 g/dL (6.5-8.0)
--- NOTE | 2023-05-14 02:21 | PC.NURSE ---
Per MD Harrison, no bedside sitter needed as pt is not SI/HI. Care Team consult ordered for Dementia.
[2023-05-14] MEDS: diphenhydrAMINE HCL 25 MG CAPSULE 50 MG PO (03:06)
--- NOTE | 2023-05-14 08:00 | PC.NURSE ---
assumed care of pt at this time. pt axo to self, respirations even and unlabored, VSS, skin wpd. pt ambulated to bathroom with minimal assistance. pt eating breakfast. pt questioning plan of care; education provided and pt reports understanding. pt denies other questions/concerns at this time.
--- NOTE | 2023-05-14 08:20 | MHC.CARE ---
CARE Team spoke with ED provider- CARE Team consult canceled
[2023-05-14 08:42] VITALS: BP 228/97; PULSE 64; RESP 16; TEMP 35.7; O2SAT 99
[2023-05-14] MEDS: amLODIPine Besylate 5 MG TABLET PO (09:33)
--- NOTE | 2023-05-14 09:33 | PHA.MEDREC ---
Pharmacy Consult ? Medication Reconciliation Pharmacy has completed the medication reconciliation. Spoke to spouse who stated patient is not on any medications. Patients spouse stressed that she is very scared of her at this time
--- NOTE | 2023-05-14 09:34 | PC.NURSE ---
Med rec pending, Pt medicated with Amlodipine for HTN, denies associated sx
[2023-05-14 09:51] LABS: COVID-19 Test Negative (Negative); IDNOW Serial# BCCEAD1C
--- NOTE | 2023-05-14 10:45 | PC.NURSE ---
to bedside. questions about pt plan of care; requested to speak to provider. provider to bedside. pt and educated on plan of care. deny further questions/concerns at this time.
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
--- NOTE | 2023-05-14 13:54 | PC.NURSE ---
Addendum entered by Idris Gu 05/14/23 15:14: IV removed. Original Note: assumed care of pt at 1330, pt repositioned into hospital bed, alert and oriented to person, believes that he is [place] the [facility], sitting in bed eating lunch.
--- NOTE | 2023-05-14 15:22 | PC.NURSE ---
pt remains hypertensive at 237/111, provider notified.
[2023-05-14 15:28] VITALS: BP 237/70; PULSE 70; RESP 16; TEMP 36.5; O2SAT 99
[2023-05-14] MEDS: OLANZapine 10 MG VIAL 5 MG IM (15:54)
--- NOTE | 2023-05-14 15:59 | PC.NURSE ---
pt increasingly agitated, exit seeking, hypertensive, confused, oriented to person only, believes he's at [address] [facility], medicated per MAR, security at bedside assisting in redirecting pt back to bed.
[2023-05-14] MEDS: Ziprasidone Mesylate 20 MG VIAL IM (16:38)
--- NOTE | 2023-05-14 17:07 | PC.NURSE ---
pt increasingly agitated and exit seeking, agreeable to medication to try and relax. medicated per DEC.
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
[2023-05-14 21:41] VITALS: BP 185/84; PULSE 67; RESP 18
--- NOTE | 2023-05-14 21:44 | PC.NURSE ---
patient resting at this time, eyes closed, even respirations
--- NOTE | 2023-05-14 21:54 | PC.NURSE ---
Addendum entered by Paige Salinas RN 05/14/23 22:19: patient becoming agitated, unable to redirect. Ed provider made aware. awaiting orders Original Note: patient awake, keeps attempting to get oob, needs continuous redirection
[2023-05-14] MEDS: OLANZapine 5 MG TABLET PO (22:42)
[2023-05-14 23:31] VITALS: BP 162/80; PULSE 66; RESP 16; TEMP 36.8; O2SAT 98
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
[2023-05-15] MEDS: OLANZapine 10 MG VIAL IM (04:31)
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
[2023-05-15] MEDS: LORazepam 2 MG/ML VIAL IM (06:01)
[2023-05-15 06:04] VITALS: BP 192/91; PULSE 58; RESP 18; TEMP 37; O2SAT 98
[2023-05-15 06:09] VITALS: BP 162/82
--- NOTE | 2023-05-15 06:10 | PC.NURSE ---
pt BP 192/91 after restraint, notified and received Ativan order IM after Ativan 162/82. CONST monitor BP.
[2023-05-15 07:00] VITALS: BP 170/101; PULSE 56; RESP 18; TEMP 36.6; O2SAT 98
--- NOTE | 2023-05-15 08:17 | PC.NURSE ---
assumed care of pt at 0700. pt in 3-point restraints for behavior concerns, with right arm released, sleeping quietly in hospital bed. 1:1 sitter at bedside along with sitter camera for pt and staff safety. rr even/unlabored. pt needs met at this time.
--- NOTE | 2023-05-15 09:31 | PC.NURSE ---
pt becoming restless, attempting to release arm in restraint and get out of bed. this RN called ED rn relief charge and spoke with provider regarding medication restraint. provider advised to put free arm in restraint and to hold off on medicating pt. pt put in 4-point restraint, tolerating well. rr even/unlabored. resting quietly in hospital bed
[2023-05-15 10:47] VITALS: BP 174/91; PULSE 63; RESP 14; O2SAT 95
--- NOTE | 2023-05-15 11:35 | PC.NURSE ---
RN assumed care of this patient at 10:30. Patient arrived in 4 point restraints. Upon arrival 4 points removed. Patient tolerated removal, resting quietly in bed. Color, movement, and sensation are intact in BUE and BLE. Capillary refill WNL. At RN discretion staff member remains at bedside for patient safety. Patient currently resting quietly in bed. Will continue to observe.
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
[2023-05-15 12:52] LABS: Appearance Urine Clear; Color Urine Yellow; Glucose Urine UA Negative (Negative); Leukocyte Esterase Urine Trace (Negative); Nitrite Urine Negative (Negative); Specific Gravity - Urine 1.015 (1.005-1.025); UMIC TRIGGER UACC YES; Urine Blood Trace (Negative); Urine Ketones Negative (Negative); Urine Protein Negative (Neg-Trace)
[2023-05-15 12:55] LABS: Bacteria Urine Trace (None Seen); Hyaline Casts Urine 0-2 /LPF (0-2); Squamous Epithelial Cell Urine 0-2 /HPF (0-2); WBC Urine 0-5 /HPF (0-5)
--- NOTE | 2023-05-15 13:30 | PC.NURSE ---
Ativan not given, pt calm, resting quietly. vss. PA aware
--- NOTE | 2023-05-15 14:30 | PC.NURSE ---
pt's visiting. pt quiet, calm, cooperative. ate lunch with assistance from this rn.
[2023-05-15 16:17] VITALS: BP 165/91; PULSE 67; RESP 17; O2SAT 97
[2023-05-15] MEDS: OLANZapine 5 MG TABLET PO (20:11)
--- NOTE | 2023-05-15 20:17 | PC.NURSE ---
Pt stood up from bed, wanting to walk outside of his room. Pt resisted for a few minutes but was redirected back into bed. Pt was medicated with bedtime zyprexa, per DEC. Pt is now resting in bed with sitter at the bedside.
--- NOTE | 2023-05-15 21:38 | MHC.CARE ---
Pt was already given his bedtime Zyprexa. Pt will be assessed in the morning however, Pt will need to have Utox and BAL prior to being assessed by the CARE team.
--- NOTE | 2023-05-15 21:46 | PC.NURSE ---
Spoke with Eddie from CARE team who stated someone will see pt tomorrow morning, as pt got zyprexa already. Pt also needs BENITEZ and BAL. Orders have been placed.
[2023-05-15 22:24] LABS: Ethanol < 10 mg/dL
[2023-05-15 22:34] VITALS: BP 167/89; PULSE 77; RESP 18; O2SAT 95
[2023-05-15 23:01] LABS: Amphetamine Screen Urine Not Detected (Not Detect); Barbiturates, Urine Not Detected (Not Detect); Benzodiazepines Screen Urine Not Detected (Not Detect); Cannabinoid Screen Urine Not Detected (Not Detect); Cocaine Screen Urine Not Detected (Not Detect); Fentanyl, urine Not Detected (Not Detect); Opiate Screen Urine Not Detected (Not Detect); Phencyclidine Screen Urine Not Detected (Not Detect)
[2023-05-16] MEDS: LORazepam 1 MG TABLET 2 MG PO ×2 (01:42→02:52)
--- NOTE | 2023-05-16 01:47 | PC.NURSE ---
Pt confused and out of bed attempting to leave. Pt medicated per dec. Pt remains on a 1 on . Pt assisted back into bed. plan of care ongoing.
[2023-05-16 06:15] VITALS: RESP 18; TEMP 36.4; O2SAT 97
--- NOTE | 2023-05-16 08:22 | ECG_ITS ---
Test Reason : check QT Blood Pressure : / mmHG Vent. Rate : 071 BPM Atrial Rate : 071 BPM P-R Int : 176 ms QRS Dur : 096 ms QT Int : 376 ms P-R-T Axes : 000 047 049 degrees QTc Int : 408 ms Normal sinus rhythm Minimal voltage criteria for LVH, may be normal variant ( Genaro product ) Nonspecific T wave abnormality Abnormal ECG When compared with ECG of 21-DEC-2022 06:10, Vent. rate has increased BY 24 BPM Nonspecific T wave abnormality now evident in Lateral leads Referred By: Collin Wang Electronically Signed By:Javier Gutierrez
[2023-05-16 09:53] VITALS: BP 146/83; PULSE 68; RESP 23; TEMP 36.7; O2SAT 98
--- NOTE | 2023-05-16 10:16 | PC.NURSE ---
pt confused resting calm. assembly machine operator 1:1 at bedside, rommel. spoke w on phone- confirmed pt has been confused/intermittently agitated prior to arrival. no agitation
--- NOTE | 2023-05-16 12:34 | PC.NURSE ---
in room with patient and crane ladle person. Patient is calm and cooperative.
--- NOTE | 2023-05-16 14:47 | MHC.EDTECH ---
EKG completed at 14:47. ED physician notified.
[2023-05-16 15:24] LABS: Alanine Aminotransferase 16 U/L (0-40); Albumin Level 3.8 g/dL (3.5-5.0); Alkaline Phosphatase 72 U/L (39-117); Anion Gap 13 (12-20); Aspartate Amino Transferase 20 U/L (5-37); Bilirubin Total 1.1 mg/dL (0.0-1.0); Blood Urea Nitrogen 21 mg/dL (9-16); Calcium 9.2 mg/dL (8.4-10.2); Carbon Dioxide 28 mmol/L (22-29); Chloride 99 mmol/L (96-108); Creatinine Clr Calc Pharmacy 77.9; Estimated Glomerular Filt Rate > 60; Glucose Random 96 mg/dL (60-115); Potassium 4.3 mmol/L (3.3-5.1); Sodium 136 mmol/L (135-145); Total Protein 6.2 g/dL (6.5-8.0)
[2023-05-16 15:31] LABS: Cholesterol 172 mg/dL; HDL Cholesterol 52 mg/dL; LDL Cholesterol Calculated 105 mg/dl; Triglycerides 75 mg/dL
[2023-05-16 15:50] VITALS: BP 128/54; PULSE 102; RESP 16; TEMP 36.5; O2SAT 94
[2023-05-16 15:56] LABS: Folate 15.3 ng/mL (> or = 4.0); Vitamin B12 418 pg/mL (200-900)
--- NOTE | 2023-05-16 15:56 | MHC.CARE ---
Pt seen by CARE team and will be transferred to for inpatient psychiatric admission.
--- NOTE | 2023-05-16 16:59 | MHC.EDTECH ---
changed bed linen and put two pads.
--- NOTE | 2023-05-16 17:12 | PC.NURSE ---
report given to floor rn jones.
--- NOTE | 2023-05-16 17:15 | PC.NURSE ---
Addendum entered by Anna Bustamante 05/16/23 17:15: pt resting calmly in bed. oriented to self only - hx dementia. no agitation. note is from 1530. Original Note: pt resting calmly in bed. oriented to self only - hx dementia. no agitation.
--- NOTE | 2023-05-16 17:38 | ECG_ITS ---
Test Reason : ADMISSION REQUIREMENT Blood Pressure : / mmHG Vent. Rate : 072 BPM Atrial Rate : 072 BPM P-R Int : 170 ms QRS Dur : 094 ms QT Int : 404 ms P-R-T Axes : 012 032 038 degrees QTc Int : 442 ms Normal sinus rhythm Normal ECG When compared with ECG of 16-MAY-2023 14:45, No significant change was found Referred By: Collin Wang Electronically Signed By:Javier Gutierrez
--- NOTE | 2023-05-16 17:50 | PC.NURSE ---
called floor again to confirm pt is still in process of goign to floor- bed is still in process of being cleaned as they needed to open up another male bed, and floor transporter/rn will come down when room ready.
[2023-05-16 18:00] VITALS: BP 162/78; PULSE 66; RESP 16; TEMP 37.2; O2SAT 97
--- NOTE | 2023-05-16 19:35 | PC.NURSE ---
checked in again with [facility] as pt remains in ed- 3rd time- floor states is in process of sending someone to gather pt. pt remains calm, cooperative with sitter 1:1.
[2023-05-16 20:50] VITALS: BP 171/90; PULSE 63; RESP 16; TEMP 36.4; O2SAT 94
[2023-05-16] MEDS: hydrOXYzine HCL 25 MG TABLET PO (21:16)
[2023-05-16] MEDS: traZODone HCL 50 MG TABLET PO (21:16)
[2023-05-16] MEDS: QUEtiapine Fumarate 50 MG TABLET PO (21:17)
[2023-05-16 22:00] VITALS: BP 127/63; PULSE 68; RESP 17
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
[2023-05-17] MEDS: QUEtiapine Fumarate 50 MG TABLET PO ×2 (04:14→20:06)
[2023-05-17 08:05] VITALS: BP 176/81; PULSE 60; RESP 16; TEMP 36.4; O2SAT 97
[2023-05-17 08:59] LABS: Alanine Aminotransferase 18 U/L (0-40); Albumin Level 3.8 g/dL (3.5-5.0); Alkaline Phosphatase 74 U/L (39-117); Anion Gap 13 (12-20); Aspartate Amino Transferase 21 U/L (5-37); Bilirubin Total 1.1 mg/dL (0.0-1.0); Blood Urea Nitrogen 29 mg/dL (9-16); Calcium 9.5 mg/dL (8.4-10.2); Carbon Dioxide 26 mmol/L (22-29); Chloride 99 mmol/L (96-108); Cholesterol 166 mg/dL; Creatinine Clr Calc Pharmacy 64.8; Estimated Glomerular Filt Rate > 60; Glucose Fasting 109 mg/dL (60-99); HDL Cholesterol 50 mg/dL; LDL Cholesterol Calculated 98 mg/dl; Sodium 134 mmol/L (135-145); Total Protein 6.4 g/dL (6.5-8.0); Triglycerides 92 mg/dL
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
[2023-05-17] MEDS: amLODIPine Besylate 5 MG TABLET PO (13:16)
[2023-05-17 14:45] VITALS: BMI 22.5
[2023-05-17 18:00] VITALS: BP 137/71; PULSE 92; RESP 18; TEMP 36.8; O2SAT 97
[2023-05-17] MEDS: hydrOXYzine HCL 25 MG TABLET PO (20:05)
[2023-05-17] MEDS: traZODone HCL 50 MG TABLET PO (20:06)
[2023-05-18] MEDS: QUEtiapine Fumarate 50 MG TABLET PO ×3 (00:15→20:34)
[2023-05-18] MEDS: hydrOXYzine HCL 25 MG TABLET PO (01:51)
[2023-05-18 07:55] VITALS: BP 141/82; PULSE 91; RESP 18; TEMP 36.1; O2SAT 97
[2023-05-18] MEDS: amLODIPine Besylate 5 MG TABLET PO (08:13)
[2023-05-18 09:54] LABS: Appearance Urine Clear; Color Urine Yellow; Glucose Urine UA Negative (Negative); Leukocyte Esterase Urine Negative (Negative); Nitrite Urine Negative (Negative); PH 5.5 (5.0-9.0); UMIC TRIGGER UACC YES; Urine Blood Trace (Negative); Urine Ketones Negative (Negative); Urine Protein Negative (Neg-Trace)
[2023-05-18 09:59] LABS: Bacteria Urine None Seen (None Seen); RBC Urine 0-2 /HPF (0-2); Squamous Epithelial Cell Urine 0-2 /HPF (0-2); WBC Urine 0-5 /HPF (0-5)
[2023-05-18 18:00] VITALS: BP 153/75; PULSE 83; RESP 18; TEMP 36.6; O2SAT 99
[2023-05-18] MEDS: traZODone HCL 50 MG TABLET PO (20:34)
[2023-05-18] MEDS: Acetaminophen 325 MG TABLET 650 MG PO (20:34)
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
[2023-05-19 06:00] VITALS: BP 161/86; PULSE 85; RESP 16; TEMP 36.4; O2SAT 96
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
[2023-05-19] MEDS: amLODIPine Besylate 5 MG TABLET PO (08:05)
[2023-05-19] MEDS: QUEtiapine Fumarate 50 MG TABLET PO ×2 (08:05→20:05)
[2023-05-19 18:00] VITALS: BP 171/80; PULSE 68; RESP 16; TEMP 36.8; O2SAT 97
[2023-05-19] MEDS: traZODone HCL 50 MG TABLET PO ×2 (21:32→23:41)
[2023-05-19] MEDS: hydrOXYzine HCL 25 MG TABLET PO (23:41)
[2023-05-20 06:00] VITALS: BP 163/93; PULSE 72; RESP 16; O2SAT 99
[2023-05-20] MEDS: QUEtiapine Fumarate 50 MG TABLET PO ×3 (08:06→21:33)
[2023-05-20] MEDS: amLODIPine Besylate 5 MG TABLET PO (08:06)
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
[2023-05-20 18:55] VITALS: BP 159/84; PULSE 70; RESP 18; TEMP 36.4; O2SAT 98
[2023-05-20] MEDS: traZODone HCL 50 MG TABLET PO ×2 (19:59→21:33)
[2023-05-20] MEDS: hydrOXYzine HCL 25 MG TABLET PO (21:33)
[2023-05-20] MEDS: QUEtiapine Fumarate 100 MG TABLET PO (22:52)
[2023-05-21] MEDS: QUEtiapine Fumarate 50 MG TABLET PO (08:27)
[2023-05-21] MEDS: amLODIPine Besylate 5 MG TABLET PO (08:27)
[2023-05-21 08:52] VITALS: BP 188/93; PULSE 72; RESP 16; TEMP 36.8; O2SAT 98
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
[2023-05-21 14:03] LABS: Alanine Aminotransferase 21 U/L (0-40); Alkaline Phosphatase 70 U/L (39-117); Anion Gap 12 (12-20); Aspartate Amino Transferase 17 U/L (5-37); Bilirubin Total 0.4 mg/dL (0.0-1.0); Blood Urea Nitrogen 23 mg/dL (9-16); Calcium 9.4 mg/dL (8.4-10.2); Carbon Dioxide 29 mmol/L (22-29); Chloride 101 mmol/L (96-108); Creatinine Clr Calc Pharmacy 67.2; Estimated Glomerular Filt Rate > 60; Glucose Random 88 mg/dL (60-115); Potassium 4.6 mmol/L (3.3-5.1); Sodium 137 mmol/L (135-145); Total Protein 6.7 g/dL (6.5-8.0)
[2023-05-21 14:25] VITALS: BP 152/69
[2023-05-21] MEDS: amLODIPine Besylate 2.5 MG TABLET PO (14:28)
[2023-05-21 19:45] VITALS: BP 188/89; PULSE 81; RESP 18; TEMP 36.7; O2SAT 96
[2023-05-21] MEDS: Rivastigmine Tartrate 1.5 MG CAPSULE PO (20:33)
[2023-05-21] MEDS: traZODone HCL 100 MG TABLET PO (20:33)
[2023-05-21 20:38] VITALS: BP 185/79
--- NOTE | 2023-05-21 21:07 | PC.NURSE ---
Dr. Erwin Palm logistics loss prevention manager notified of elevated Blood pressures. PRN ordered of 0.05 Clonidine Q2 hours for SBP > 159.
[2023-05-21 21:08] VITALS: BP 136/89; BP 139/73; PULSE 80; PULSE 89
[2023-05-22] MEDS: cloNIDine HCL 0.1 MG TABLET 0.05 MG PO ×3 (01:31→06:58)
[2023-05-22 06:00] VITALS: BP 174/84; RESP 16; O2SAT 97
[2023-05-22] MEDS: amLODIPine Besylate 2.5 MG TABLET 7.5 MG PO (08:22)
[2023-05-22] MEDS: Rivastigmine Tartrate 1.5 MG CAPSULE PO ×2 (08:22→20:22)
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
[2023-05-22] MEDS: QUEtiapine Fumarate 50 MG TABLET PO ×2 (09:20→22:36)
--- NOTE | 2023-05-22 11:15 | PM.EVENT ---
Event Note Date of Service: 05/22/23 Event Note: Consult placed to hospitalist service for management of elevated blood pressure readings. Psych provider added amlodipine 7.5mg daily starting this morning. Would not add any additional medications at this time. Monitor blood pressures. Time Spent With Patient Time: Total time managing care of this patient today ____ minutes.
[2023-05-22 11:35] VITALS: BP 117/59; PULSE 59
[2023-05-22 18:39] VITALS: BP 133/66
--- NOTE | 2023-05-22 18:40 | PC.NURSE ---
pt blood pressure 133/66 at 1840, notifed Katie CHATMAN
[2023-05-22 20:00] VITALS: BP 136/64; PULSE 86; RESP 16; TEMP 37; O2SAT 95
[2023-05-22] MEDS: QUEtiapine Fumarate 100 MG TABLET PO (20:22)
[2023-05-22] MEDS: traZODone HCL 100 MG TABLET PO (20:22)
[2023-05-22] MEDS: traZODone HCL 50 MG TABLET PO (22:36)
[2023-05-23] MEDS: hydrOXYzine HCL 25 MG TABLET PO (00:48)
[2023-05-23] MEDS: QUEtiapine Fumarate 50 MG TABLET PO ×2 (04:15→08:13)
[2023-05-23 08:10] VITALS: BP 166/77; PULSE 75; RESP 18; TEMP 36.3; O2SAT 97
[2023-05-23] MEDS: amLODIPine Besylate 2.5 MG TABLET 7.5 MG PO (08:13)
[2023-05-23] MEDS: Rivastigmine Tartrate 1.5 MG CAPSULE PO ×2 (08:13→20:31)
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
[2023-05-23 12:36] LABS: Vitamin D 25-OH Total 29.2 ng/mL (>30)
[2023-05-23 19:50] VITALS: BP 162/79; PULSE 80; RESP 17; TEMP 36.4; O2SAT 98
[2023-05-23] MEDS: QUEtiapine Fumarate 200 MG TABLET PO (20:31)
[2023-05-23] MEDS: traZODone HCL 100 MG TABLET PO (20:31)
[2023-05-23] MEDS: Losartan Potassium 25 MG TABLET PO (21:51)
[2023-05-23 21:53] VITALS: BP 186/91; PULSE 84; RESP 17
[2023-05-24] MEDS: amLODIPine Besylate 2.5 MG TABLET 7.5 MG PO (06:50)
[2023-05-24 07:00] VITALS: BMI 23.8
[2023-05-24 07:12] VITALS: BP 195/87; PULSE 64; RESP 16; TEMP 36.4; O2SAT 97
[2023-05-24] MEDS: Rivastigmine Tartrate 1.5 MG CAPSULE PO ×2 (08:12→20:41)
[2023-05-24] MEDS: QUEtiapine Fumarate 50 MG TABLET PO (08:12)
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
[2023-05-24 13:23] VITALS: BP 163/85; PULSE 73
[2023-05-24 18:00] VITALS: BP 179/80; PULSE 77; RESP 18; TEMP 36.3; O2SAT 98
[2023-05-24] MEDS: Losartan Potassium 25 MG TABLET PO (20:41)
[2023-05-24] MEDS: traZODone HCL 100 MG TABLET PO (20:42)
[2023-05-24] MEDS: QUEtiapine Fumarate 200 MG TABLET PO (20:42)
[2023-05-25] MEDS: hydrOXYzine HCL 25 MG TABLET PO (00:28)
[2023-05-25] MEDS: traZODone HCL 50 MG TABLET PO (00:28)
[2023-05-25 00:32] VITALS: BP 159/77; PULSE 82
[2023-05-25 08:00] VITALS: BP 145/75; PULSE 68; RESP 18; TEMP 36.6; O2SAT 100
[2023-05-25] MEDS: Rivastigmine Tartrate 1.5 MG CAPSULE PO ×2 (08:29→20:15)
[2023-05-25] MEDS: amLODIPine Besylate 10 MG TABLET PO (08:29)
[2023-05-25] MEDS: QUEtiapine Fumarate 50 MG TABLET PO (08:29)
--- NOTE | 2023-05-25 11:21 | PM.EVENT ---
Documented by User: COMPA Chavez 05/25/23 11:23 Event Note Date of Service: 05/25/23 Event Note: Pt continues to have elevated BP with readings yesterday as high as 179/80. Will increase amlodipine to 10 mg daily. Will continue to follow for now to monitor BP, and will adjust therapies as necessary. Time Spent With Patient Time: Total time managing care of this patient today ____ minutes. Documented by User: Alejandro Murray MD 06/07/23 15:52 Event Note Date of Service: 06/07/23
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
[2023-05-25 18:00] VITALS: BP 163/76; PULSE 75; RESP 16; TEMP 36.4; O2SAT 98
[2023-05-25] MEDS: Losartan Potassium 25 MG TABLET PO (20:14)
[2023-05-25] MEDS: traZODone HCL 100 MG TABLET PO (20:15)
[2023-05-25] MEDS: QUEtiapine Fumarate 200 MG TABLET PO (20:15)
[2023-05-26 08:00] VITALS: BP 152/81; PULSE 75; RESP 18; TEMP 36.5; O2SAT 99
[2023-05-26] MEDS: QUEtiapine Fumarate 50 MG TABLET PO (08:11)
[2023-05-26] MEDS: Rivastigmine Tartrate 1.5 MG CAPSULE PO ×2 (08:11→20:39)
[2023-05-26] MEDS: amLODIPine Besylate 10 MG TABLET PO (08:11)
[2023-05-26 18:00] VITALS: BP 161/76; PULSE 78; RESP 18; TEMP 36.4; O2SAT 99
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
[2023-05-26] MEDS: QUEtiapine Fumarate 200 MG TABLET PO (20:38)
[2023-05-26] MEDS: Losartan Potassium 25 MG TABLET PO (20:38)
[2023-05-26] MEDS: traZODone HCL 100 MG TABLET PO (20:39)
[2023-05-27 07:55] VITALS: BP 159/80; PULSE 75; RESP 18; TEMP 36.2; O2SAT 98
[2023-05-27] MEDS: amLODIPine Besylate 10 MG TABLET PO (08:08)
[2023-05-27] MEDS: QUEtiapine Fumarate 50 MG TABLET PO (08:08)
[2023-05-27] MEDS: Rivastigmine Tartrate 1.5 MG CAPSULE PO ×2 (08:08→20:23)
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
[2023-05-27 19:35] VITALS: BP 152/69; PULSE 76; RESP 16; TEMP 36.6; O2SAT 96
[2023-05-27] MEDS: traZODone HCL 100 MG TABLET PO (20:23)
[2023-05-27] MEDS: Losartan Potassium 25 MG TABLET PO (20:23)
[2023-05-27] MEDS: QUEtiapine Fumarate 200 MG TABLET PO (20:23)
[2023-05-28 08:00] VITALS: BP 135/78; PULSE 76; RESP 18; TEMP 37; O2SAT 96
[2023-05-28] MEDS: Rivastigmine Tartrate 1.5 MG CAPSULE PO ×2 (08:46→19:53)
[2023-05-28] MEDS: amLODIPine Besylate 10 MG TABLET PO (08:46)
[2023-05-28] MEDS: QUEtiapine Fumarate 50 MG TABLET PO (08:46)
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
[2023-05-28 18:00] VITALS: BP 179/82; PULSE 82; RESP 18; TEMP 37.1; O2SAT 97
[2023-05-28] MEDS: Losartan Potassium 25 MG TABLET PO (19:52)
[2023-05-28] MEDS: QUEtiapine Fumarate 200 MG TABLET PO (19:53)
[2023-05-28] MEDS: traZODone HCL 100 MG TABLET PO (19:53)
[2023-05-29 08:00] VITALS: BP 178/81; PULSE 70; RESP 18; TEMP 36.6; O2SAT 97
[2023-05-29] MEDS: amLODIPine Besylate 10 MG TABLET PO (08:11)
[2023-05-29] MEDS: Rivastigmine Tartrate 1.5 MG CAPSULE PO ×2 (08:11→19:57)
[2023-05-29] MEDS: QUEtiapine Fumarate 50 MG TABLET PO (08:11)
--- NOTE | 2023-05-29 11:51 | PM.EVENT ---
Event Note Date of Service: 05/29/23 Event Note: Blood pressure remain uncontrolled Will add hctz 12.5mg daily to amlodipine 10mg daily. Continue losartan 25mg nightly. Check renal function and lytes in 3 days. Monitor BPs closely. Time Spent With Patient Time: Total time managing care of this patient today ____ minutes.
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
[2023-05-29 18:00] VITALS: BP 163/77; PULSE 79; RESP 18; TEMP 36.6; O2SAT 97
[2023-05-29] MEDS: QUEtiapine Fumarate 200 MG TABLET PO (19:57)
[2023-05-29] MEDS: Losartan Potassium 25 MG TABLET PO (19:58)
[2023-05-29] MEDS: traZODone HCL 100 MG TABLET PO (19:58)
[2023-05-30 08:00] VITALS: BP 148/72; PULSE 80; RESP 18; TEMP 36.6; O2SAT 98
[2023-05-30] MEDS: Rivastigmine Tartrate 1.5 MG CAPSULE PO ×2 (09:31→20:30)
[2023-05-30] MEDS: QUEtiapine Fumarate 50 MG TABLET PO (09:31)
[2023-05-30] MEDS: hydroCHLOROthiazide 25 MG TABLET PO (09:31)
[2023-05-30] MEDS: amLODIPine Besylate 10 MG TABLET PO (09:32)
--- NOTE | 2023-05-30 13:54 | MHC.CLN ---
NUTRITION 2 GRAM SODIUM DIET PER PROVIDER. NEW MED HYDROCHLOROTHIAZIDE. MONITOR SODIUM LABS.
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
[2023-05-30 18:00] VITALS: BP 166/79; PULSE 72; RESP 16; TEMP 37.1; O2SAT 98
[2023-05-30] MEDS: traZODone HCL 100 MG TABLET PO (20:30)
[2023-05-30] MEDS: QUEtiapine Fumarate 200 MG TABLET PO (20:30)
[2023-05-30] MEDS: Losartan Potassium 25 MG TABLET PO (20:30)
[2023-05-31 07:00] VITALS: BMI 23.5
[2023-05-31 07:55] VITALS: BP 172/83; PULSE 76; RESP 18; TEMP 36.3; O2SAT 97
[2023-05-31] MEDS: amLODIPine Besylate 10 MG TABLET PO (08:36)
[2023-05-31] MEDS: hydroCHLOROthiazide 25 MG TABLET PO (08:37)
[2023-05-31] MEDS: QUEtiapine Fumarate 50 MG TABLET PO (08:37)
[2023-05-31] MEDS: Rivastigmine Tartrate 1.5 MG CAPSULE PO ×2 (08:37→21:18)
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
[2023-05-31 20:50] VITALS: BP 152/74; PULSE 78; RESP 16; TEMP 36.8; O2SAT 98
[2023-05-31] MEDS: traZODone HCL 100 MG TABLET PO (21:19)
[2023-05-31] MEDS: QUEtiapine Fumarate 200 MG TABLET PO (21:19)
[2023-05-31] MEDS: Losartan Potassium 25 MG TABLET PO (21:19)
[2023-06-01 08:00] VITALS: BP 152/67; PULSE 81; RESP 18; TEMP 36.8; O2SAT 98
[2023-06-01] MEDS: Rivastigmine Tartrate 1.5 MG CAPSULE PO ×2 (08:24→19:45)
[2023-06-01] MEDS: amLODIPine Besylate 10 MG TABLET PO (08:24)
[2023-06-01] MEDS: hydroCHLOROthiazide 25 MG TABLET PO (08:24)
[2023-06-01 09:11] LABS: Anion Gap 13 (12-20); Blood Urea Nitrogen 25 mg/dL (9-16); Calcium 9.5 mg/dL (8.4-10.2); Carbon Dioxide 28 mmol/L (22-29); Chloride 98 mmol/L (96-108); Creatinine Clr Calc Pharmacy 59.5; Estimated Glomerular Filt Rate > 60; Glucose Random 196 mg/dL (60-115); Sodium 135 mmol/L (135-145)
[2023-06-01] MEDS: QUEtiapine Fumarate 50 MG TABLET PO (09:45)
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
[2023-06-01 13:03] LABS: Alanine Aminotransferase 23 U/L (0-40); Albumin Level 4.3 g/dL (3.5-5.0); Alkaline Phosphatase 77 U/L (39-117); Anion Gap 13 (12-20); Aspartate Amino Transferase 19 U/L (5-37); Bilirubin Total 0.3 mg/dL (0.0-1.0); Blood Urea Nitrogen 23 mg/dL (9-16); Calcium 9.6 mg/dL (8.4-10.2); Carbon Dioxide 28 mmol/L (22-29); Chloride 98 mmol/L (96-108); Creatinine Clr Calc Pharmacy 64.8; Estimated Glomerular Filt Rate > 60; Glucose Random 130 mg/dL (60-115); Potassium 4.1 mmol/L (3.3-5.1); Sodium 135 mmol/L (135-145); Total Protein 6.9 g/dL (6.5-8.0)
[2023-06-01 18:00] VITALS: BP 184/81; PULSE 74; RESP 18; TEMP 36.6
[2023-06-01] MEDS: Losartan Potassium 25 MG TABLET PO (19:45)
[2023-06-01] MEDS: QUEtiapine Fumarate 200 MG TABLET PO (19:45)
[2023-06-01] MEDS: traZODone HCL 100 MG TABLET PO (19:45)
[2023-06-02 08:00] VITALS: BP 174/81; PULSE 82; RESP 18; TEMP 36.3; O2SAT 97
[2023-06-02] MEDS: QUEtiapine Fumarate 50 MG TABLET PO (08:36)
[2023-06-02] MEDS: amLODIPine Besylate 10 MG TABLET PO (08:36)
[2023-06-02] MEDS: Rivastigmine Tartrate 1.5 MG CAPSULE PO ×2 (08:36→20:31)
[2023-06-02] MEDS: hydroCHLOROthiazide 25 MG TABLET PO (08:36)
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
[2023-06-02 18:00] VITALS: BP 179/78; PULSE 80; TEMP 36.8; O2SAT 100
--- NOTE | 2023-06-02 18:12 | PM.EVENT ---
Event Note Date of Service: 06/02/23 Event Note: Patient's blood pressure readings continue to be elevated despite recent medication adjustments, last reading 174/81. Will increase losartan to 50 mg p.o. at bedtime. Continue amlodipine 10 mg daily and hydrochlorothiazide 25 mg p.o. daily. Will continue to follow to monitor BP. Time Spent With Patient Time: Total time managing care of this patient today ____ minutes.
[2023-06-02] MEDS: Losartan Potassium 50 MG TABLET PO (20:31)
[2023-06-02] MEDS: traZODone HCL 100 MG TABLET PO (20:31)
[2023-06-02] MEDS: QUEtiapine Fumarate 200 MG TABLET PO (20:35)
[2023-06-03 07:45] VITALS: BP 112/72; PULSE 84; RESP 18; TEMP 36.5; O2SAT 96
[2023-06-03] MEDS: QUEtiapine Fumarate 50 MG TABLET PO (08:21)
[2023-06-03] MEDS: Rivastigmine Tartrate 1.5 MG CAPSULE PO ×2 (08:21→20:20)
[2023-06-03] MEDS: hydroCHLOROthiazide 25 MG TABLET PO (08:21)
[2023-06-03] MEDS: amLODIPine Besylate 10 MG TABLET PO (08:21)
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
[2023-06-03 18:00] VITALS: BP 137/75; PULSE 72; RESP 16; TEMP 36.4; O2SAT 97
[2023-06-03] MEDS: Losartan Potassium 50 MG TABLET PO (20:21)
[2023-06-03] MEDS: QUEtiapine Fumarate 200 MG TABLET PO (20:21)
[2023-06-03] MEDS: traZODone HCL 100 MG TABLET PO (20:21)
[2023-06-04 08:00] VITALS: BP 153/67; PULSE 87; RESP 18; TEMP 36.4; O2SAT 96
[2023-06-04] MEDS: QUEtiapine Fumarate 50 MG TABLET PO (08:21)
[2023-06-04] MEDS: hydroCHLOROthiazide 25 MG TABLET PO (08:21)
[2023-06-04] MEDS: amLODIPine Besylate 10 MG TABLET PO (08:21)
[2023-06-04] MEDS: Rivastigmine Tartrate 1.5 MG CAPSULE PO ×2 (08:21→20:28)
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
[2023-06-04] MEDS: Losartan Potassium 50 MG TABLET PO (20:28)
[2023-06-04] MEDS: QUEtiapine Fumarate 200 MG TABLET PO (20:28)
[2023-06-04] MEDS: traZODone HCL 100 MG TABLET PO (20:30)
[2023-06-04 20:35] VITALS: BP 139/62; PULSE 58; RESP 16; TEMP 36.9; O2SAT 99
[2023-06-05 08:25] VITALS: BP 113/77; PULSE 86; RESP 16; TEMP 36.7; O2SAT 98
[2023-06-05] MEDS: hydroCHLOROthiazide 25 MG TABLET PO (08:28)
[2023-06-05] MEDS: Rivastigmine Tartrate 1.5 MG CAPSULE PO ×2 (08:28→20:24)
[2023-06-05] MEDS: QUEtiapine Fumarate 50 MG TABLET PO (08:28)
[2023-06-05] MEDS: amLODIPine Besylate 10 MG TABLET PO (08:28)
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
[2023-06-05 20:00] VITALS: BP 122/65; PULSE 69; RESP 18; TEMP 36.5; O2SAT 98
[2023-06-05] MEDS: QUEtiapine Fumarate 200 MG TABLET PO (20:24)
[2023-06-05] MEDS: traZODone HCL 100 MG TABLET PO (20:24)
[2023-06-05] MEDS: Losartan Potassium 50 MG TABLET PO (20:24)
[2023-06-06] MEDS: hydrOXYzine HCL 25 MG TABLET PO ×2 (01:27→21:34)
[2023-06-06] MEDS: QUEtiapine Fumarate 50 MG TABLET PO ×2 (01:27→09:09)
[2023-06-06 06:00] VITALS: BP 127/59; PULSE 84; RESP 18; TEMP 35.9; O2SAT 99
[2023-06-06] MEDS: Rivastigmine Tartrate 1.5 MG CAPSULE PO ×2 (09:03→21:34)
[2023-06-06] MEDS: hydroCHLOROthiazide 25 MG TABLET PO (09:04)
[2023-06-06] MEDS: amLODIPine Besylate 10 MG TABLET PO (09:04)
--- NOTE | 2023-06-06 12:43 | PC.NURSE ---
Today Seroquel was given for the scheduled dose as prn was charted on 0900 dose so I charted my dose on the prn dose.
[2023-06-06 18:00] VITALS: BP 189/88; PULSE 86; RESP 18; TEMP 36.5; O2SAT 99
[2023-06-06] MEDS: QUEtiapine Fumarate 200 MG TABLET PO (21:34)
[2023-06-06] MEDS: Losartan Potassium 50 MG TABLET PO (21:34)
[2023-06-06] MEDS: traZODone HCL 100 MG TABLET PO (21:35)
[2023-06-06] MEDS: Acetaminophen 325 MG TABLET 650 MG PO (21:35)
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
[2023-06-07 06:00] VITALS: BP 113/62; PULSE 86; RESP 18; TEMP 36.7; O2SAT 97
[2023-06-07 07:00] VITALS: BMI 23.6
[2023-06-07] MEDS: QUEtiapine Fumarate 50 MG TABLET PO (08:55)
[2023-06-07] MEDS: Rivastigmine Tartrate 1.5 MG CAPSULE PO ×2 (08:55→19:56)
[2023-06-07] MEDS: amLODIPine Besylate 10 MG TABLET PO (08:55)
[2023-06-07] MEDS: hydroCHLOROthiazide 25 MG TABLET PO (08:55)
[2023-06-07 18:00] VITALS: BP 130/61; PULSE 62; TEMP 37.1; O2SAT 99
[2023-06-07] MEDS: hydrOXYzine HCL 25 MG TABLET PO (19:55)
[2023-06-07] MEDS: QUEtiapine Fumarate 200 MG TABLET PO (19:55)
[2023-06-07] MEDS: Acetaminophen 325 MG TABLET 650 MG PO (19:55)
[2023-06-07] MEDS: Losartan Potassium 50 MG TABLET PO (19:55)
[2023-06-07] MEDS: traZODone HCL 100 MG TABLET PO (19:55)
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
--- NOTE | 2023-06-07 21:47 | PC.NURSE ---
pt had blood upon wiping. when inspected, pt had minor redness. barrier cream was applied. notified.
[2023-06-08 07:45] VITALS: BP 156/77; PULSE 75; RESP 18; TEMP 36.3; O2SAT 98
[2023-06-08] MEDS: Rivastigmine Tartrate 1.5 MG CAPSULE PO ×2 (08:10→20:08)
[2023-06-08] MEDS: QUEtiapine Fumarate 50 MG TABLET PO (08:10)
[2023-06-08] MEDS: amLODIPine Besylate 10 MG TABLET PO (08:10)
[2023-06-08] MEDS: hydroCHLOROthiazide 25 MG TABLET PO (08:10)
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
[2023-06-08 18:00] VITALS: BP 135/65; PULSE 80; TEMP 37; O2SAT 98
[2023-06-08] MEDS: Acetaminophen 325 MG TABLET 650 MG PO (20:08)
[2023-06-08] MEDS: QUEtiapine Fumarate 200 MG TABLET PO (20:09)
[2023-06-08] MEDS: hydrOXYzine HCL 25 MG TABLET PO (20:09)
[2023-06-08] MEDS: Losartan Potassium 50 MG TABLET PO (20:09)
[2023-06-08] MEDS: traZODone HCL 100 MG TABLET PO (20:09)
[2023-06-09 08:00] VITALS: BP 124/60; PULSE 94; RESP 18; TEMP 36.2; O2SAT 99
[2023-06-09] MEDS: Rivastigmine Tartrate 1.5 MG CAPSULE PO ×2 (08:53→20:17)
[2023-06-09] MEDS: amLODIPine Besylate 10 MG TABLET PO (08:54)
[2023-06-09] MEDS: QUEtiapine Fumarate 50 MG TABLET PO (08:54)
[2023-06-09] MEDS: hydroCHLOROthiazide 25 MG TABLET PO (08:55)
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
[2023-06-09 18:00] VITALS: BP 138/65; PULSE 84; RESP 16; TEMP 36.7; O2SAT 93
[2023-06-09] MEDS: traZODone HCL 100 MG TABLET PO (20:17)
[2023-06-09] MEDS: Losartan Potassium 50 MG TABLET PO (20:17)
[2023-06-09] MEDS: QUEtiapine Fumarate 200 MG TABLET PO (20:17)
[2023-06-10 08:30] VITALS: BP 143/72; PULSE 70; RESP 20; TEMP 35.9; O2SAT 98
[2023-06-10] MEDS: Rivastigmine Tartrate 1.5 MG CAPSULE PO ×2 (08:33→20:23)
[2023-06-10] MEDS: amLODIPine Besylate 10 MG TABLET PO (08:33)
[2023-06-10] MEDS: hydroCHLOROthiazide 25 MG TABLET PO (08:34)
[2023-06-10] MEDS: QUEtiapine Fumarate 50 MG TABLET PO (08:34)
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
[2023-06-10 18:00] VITALS: BP 149/69; PULSE 64; RESP 16; TEMP 37.1; O2SAT 98
[2023-06-10] MEDS: QUEtiapine Fumarate 200 MG TABLET PO (20:23)
[2023-06-10] MEDS: traZODone HCL 100 MG TABLET PO (20:23)
[2023-06-10] MEDS: Losartan Potassium 50 MG TABLET PO (20:23)
[2023-06-11 08:25] VITALS: BP 122/59; PULSE 78; RESP 20; TEMP 36; O2SAT 100
[2023-06-11] MEDS: QUEtiapine Fumarate 50 MG TABLET PO (08:35)
[2023-06-11] MEDS: amLODIPine Besylate 10 MG TABLET PO (08:35)
[2023-06-11] MEDS: Rivastigmine Tartrate 1.5 MG CAPSULE PO ×2 (08:35→20:05)
[2023-06-11] MEDS: hydroCHLOROthiazide 25 MG TABLET PO (08:36)
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
[2023-06-11 18:00] VITALS: BP 135/61; PULSE 71; RESP 18; TEMP 36.8; O2SAT 97
[2023-06-11] MEDS: hydrOXYzine HCL 25 MG TABLET PO (20:05)
[2023-06-11] MEDS: QUEtiapine Fumarate 200 MG TABLET PO (20:05)
[2023-06-11] MEDS: traZODone HCL 100 MG TABLET PO (20:05)
[2023-06-11] MEDS: Losartan Potassium 50 MG TABLET PO (20:05)
[2023-06-12 06:00] VITALS: BP 129/59; PULSE 76; RESP 18; TEMP 36.4; O2SAT 98
[2023-06-12] MEDS: Rivastigmine Tartrate 1.5 MG CAPSULE PO ×2 (08:37→20:28)
[2023-06-12] MEDS: QUEtiapine Fumarate 50 MG TABLET PO (08:37)
[2023-06-12] MEDS: hydroCHLOROthiazide 25 MG TABLET PO (08:38)
[2023-06-12] MEDS: amLODIPine Besylate 10 MG TABLET PO (08:38)
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
[2023-06-12 18:00] VITALS: BP 147/67; PULSE 78; RESP 18; TEMP 36.8; O2SAT 99
[2023-06-12] MEDS: Losartan Potassium 50 MG TABLET PO (20:27)
[2023-06-12] MEDS: traZODone HCL 100 MG TABLET PO (20:28)
[2023-06-12] MEDS: QUEtiapine Fumarate 200 MG TABLET PO (20:28)
[2023-06-13 06:00] VITALS: BP 122/68; PULSE 76; RESP 16; TEMP 36.5; O2SAT 99
[2023-06-13] MEDS: hydroCHLOROthiazide 25 MG TABLET PO (09:33)
[2023-06-13] MEDS: Rivastigmine Tartrate 1.5 MG CAPSULE PO ×2 (09:33→20:19)
[2023-06-13] MEDS: amLODIPine Besylate 10 MG TABLET PO (09:33)
[2023-06-13] MEDS: QUEtiapine Fumarate 50 MG TABLET PO (09:33)
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
[2023-06-13 19:45] VITALS: BP 134/65; PULSE 59; RESP 18; TEMP 36.6; O2SAT 100
[2023-06-13] MEDS: QUEtiapine Fumarate 200 MG TABLET PO (20:18)
[2023-06-13] MEDS: Losartan Potassium 50 MG TABLET PO (20:19)
[2023-06-13] MEDS: traZODone HCL 100 MG TABLET PO (20:19)
[2023-06-14 07:00] VITALS: BMI 23.8
[2023-06-14 08:00] VITALS: BP 141/63; PULSE 78; RESP 16; TEMP 36.2; O2SAT 98
[2023-06-14] MEDS: amLODIPine Besylate 10 MG TABLET PO (08:24)
[2023-06-14] MEDS: hydroCHLOROthiazide 25 MG TABLET PO (08:24)
[2023-06-14] MEDS: Rivastigmine Tartrate 1.5 MG CAPSULE PO ×2 (08:24→20:47)
[2023-06-14] MEDS: QUEtiapine Fumarate 50 MG TABLET PO (08:24)
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
[2023-06-14 18:00] VITALS: BP 110/58; PULSE 71; RESP 18; TEMP 36.6; O2SAT 98
[2023-06-14] MEDS: Losartan Potassium 50 MG TABLET PO (20:47)
[2023-06-14] MEDS: QUEtiapine Fumarate 200 MG TABLET PO (20:47)
[2023-06-14] MEDS: traZODone HCL 100 MG TABLET PO (20:47)
[2023-06-15 07:20] VITALS: BP 121/67; PULSE 60; RESP 18; TEMP 36.5; O2SAT 98
[2023-06-15] MEDS: amLODIPine Besylate 10 MG TABLET PO (08:26)
[2023-06-15] MEDS: Rivastigmine Tartrate 1.5 MG CAPSULE PO ×2 (08:26→20:44)
[2023-06-15] MEDS: QUEtiapine Fumarate 50 MG TABLET PO (08:28)
[2023-06-15] MEDS: hydroCHLOROthiazide 25 MG TABLET PO (08:29)
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
[2023-06-15 18:00] VITALS: BP 124/66; PULSE 63; RESP 16; TEMP 36.2; O2SAT 98
[2023-06-15] MEDS: Losartan Potassium 50 MG TABLET PO (20:45)
[2023-06-15] MEDS: traZODone HCL 100 MG TABLET PO (20:45)
[2023-06-15] MEDS: QUEtiapine Fumarate 200 MG TABLET PO (20:45)
[2023-06-16 06:00] VITALS: BP 142/64; PULSE 73; RESP 16; TEMP 36.3; O2SAT 98
[2023-06-16] MEDS: QUEtiapine Fumarate 50 MG TABLET PO (08:30)
[2023-06-16] MEDS: hydroCHLOROthiazide 25 MG TABLET PO (08:30)
[2023-06-16] MEDS: amLODIPine Besylate 10 MG TABLET PO (08:30)
[2023-06-16] MEDS: Rivastigmine Tartrate 1.5 MG CAPSULE PO ×2 (08:30→19:58)
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
[2023-06-16 18:00] VITALS: BP 158/77; PULSE 61; RESP 18; TEMP 36.6; O2SAT 98
--- NOTE | 2023-06-16 18:05 | PC.NURSE ---
During shower this evening redness to patient buttocks noticed. Barrier cream applied. Patient ambulates and changes position frequently during the day and toilets frequently. Will continue to monitor.
[2023-06-16] MEDS: QUEtiapine Fumarate 200 MG TABLET PO (19:58)
[2023-06-16] MEDS: Losartan Potassium 50 MG TABLET PO (19:58)
[2023-06-16] MEDS: traZODone HCL 100 MG TABLET PO (19:59)
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
[2023-06-17 08:00] VITALS: BP 140/67; PULSE 75; RESP 16; TEMP 36.5; O2SAT 98
[2023-06-17] MEDS: Rivastigmine Tartrate 1.5 MG CAPSULE PO ×2 (08:40→20:13)
[2023-06-17] MEDS: amLODIPine Besylate 10 MG TABLET PO (08:40)
[2023-06-17] MEDS: QUEtiapine Fumarate 50 MG TABLET PO (08:40)
[2023-06-17] MEDS: hydroCHLOROthiazide 25 MG TABLET PO (08:40)
[2023-06-17 19:49] VITALS: BP 151/69; PULSE 80; TEMP 36.3; O2SAT 99
[2023-06-17] MEDS: Losartan Potassium 50 MG TABLET PO (20:13)
[2023-06-17] MEDS: traZODone HCL 100 MG TABLET PO (20:13)
[2023-06-17] MEDS: QUEtiapine Fumarate 200 MG TABLET PO (20:13)
[2023-06-17] MEDS: traZODone HCL 50 MG TABLET PO (22:56)
[2023-06-17] MEDS: hydrOXYzine HCL 25 MG TABLET PO (22:56)
[2023-06-18 07:50] VITALS: BP 149/71; PULSE 67; RESP 18; TEMP 36; O2SAT 99
[2023-06-18] MEDS: amLODIPine Besylate 10 MG TABLET PO (08:37)
[2023-06-18] MEDS: QUEtiapine Fumarate 50 MG TABLET PO (08:37)
[2023-06-18] MEDS: hydroCHLOROthiazide 25 MG TABLET PO (08:37)
[2023-06-18] MEDS: Rivastigmine Tartrate 1.5 MG CAPSULE PO ×2 (08:37→20:02)
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
[2023-06-18 19:35] VITALS: BP 130/75; PULSE 68; TEMP 36.2; O2SAT 97
[2023-06-18] MEDS: Losartan Potassium 50 MG TABLET PO (20:02)
[2023-06-18] MEDS: traZODone HCL 100 MG TABLET PO (20:02)
[2023-06-18] MEDS: QUEtiapine Fumarate 200 MG TABLET PO (20:02)
[2023-06-19 07:45] VITALS: BP 180/79; PULSE 72; RESP 18; TEMP 36; O2SAT 100
[2023-06-19] MEDS: amLODIPine Besylate 10 MG TABLET PO (08:12)
[2023-06-19] MEDS: Rivastigmine Tartrate 1.5 MG CAPSULE PO ×2 (08:12→19:49)
[2023-06-19] MEDS: hydroCHLOROthiazide 25 MG TABLET PO (08:13)
[2023-06-19] MEDS: QUEtiapine Fumarate 50 MG TABLET PO (08:13)
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
[2023-06-19 19:30] VITALS: BP 182/79; PULSE 65; RESP 16; TEMP 36.9; O2SAT 99
[2023-06-19] MEDS: QUEtiapine Fumarate 200 MG TABLET PO (19:49)
[2023-06-19] MEDS: traZODone HCL 100 MG TABLET PO (19:50)
[2023-06-19] MEDS: Losartan Potassium 50 MG TABLET PO (19:50)
[2023-06-20 06:00] VITALS: BP 123/99; PULSE 95; RESP 18; TEMP 36.3; O2SAT 98
[2023-06-20] MEDS: Rivastigmine Tartrate 1.5 MG CAPSULE PO ×2 (10:50→20:24)
[2023-06-20] MEDS: amLODIPine Besylate 10 MG TABLET PO (10:50)
[2023-06-20] MEDS: QUEtiapine Fumarate 50 MG TABLET PO (10:50)
[2023-06-20] MEDS: hydroCHLOROthiazide 25 MG TABLET PO (10:50)
[2023-06-20 18:00] VITALS: BP 129/60; PULSE 74; RESP 18; TEMP 37.1; O2SAT 97
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
[2023-06-20] MEDS: QUEtiapine Fumarate 200 MG TABLET PO (20:24)
[2023-06-20] MEDS: Losartan Potassium 50 MG TABLET PO (20:24)
[2023-06-20] MEDS: traZODone HCL 100 MG TABLET PO (20:24)
[2023-06-20] MEDS: traZODone HCL 50 MG TABLET PO (23:58)
[2023-06-21 08:13] VITALS: BP 177/87; PULSE 77; RESP 18; TEMP 36.1; O2SAT 98
[2023-06-21] MEDS: amLODIPine Besylate 10 MG TABLET PO (08:17)
[2023-06-21] MEDS: QUEtiapine Fumarate 50 MG TABLET PO (08:17)
[2023-06-21] MEDS: Rivastigmine Tartrate 1.5 MG CAPSULE PO ×2 (08:17→20:34)
[2023-06-21] MEDS: hydroCHLOROthiazide 25 MG TABLET PO (08:17)
[2023-06-21 09:57] VITALS: BMI 24.0
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
[2023-06-21 18:00] VITALS: BP 159/75; PULSE 83; RESP 18; TEMP 36.1; O2SAT 98
[2023-06-21] MEDS: traZODone HCL 50 MG TABLET PO (20:33)
[2023-06-21] MEDS: traZODone HCL 100 MG TABLET PO (20:34)
[2023-06-21] MEDS: QUEtiapine Fumarate 200 MG TABLET PO (20:34)
[2023-06-21] MEDS: Losartan Potassium 50 MG TABLET PO (20:34)
[2023-06-22 08:09] VITALS: BP 168/88; PULSE 80; RESP 16; TEMP 36.3; O2SAT 97
[2023-06-22] MEDS: Rivastigmine Tartrate 1.5 MG CAPSULE PO ×2 (08:15→20:11)
[2023-06-22] MEDS: QUEtiapine Fumarate 50 MG TABLET PO (08:15)
[2023-06-22] MEDS: hydroCHLOROthiazide 25 MG TABLET PO (08:15)
[2023-06-22] MEDS: amLODIPine Besylate 10 MG TABLET PO (08:15)
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
[2023-06-22 18:00] VITALS: BP 137/63; PULSE 79; RESP 16; TEMP 36.7; O2SAT 97
[2023-06-22] MEDS: Losartan Potassium 50 MG TABLET PO (20:12)
[2023-06-22] MEDS: traZODone HCL 100 MG TABLET PO (20:12)
[2023-06-22] MEDS: QUEtiapine Fumarate 200 MG TABLET PO (20:12)
[2023-06-23 08:55] VITALS: BP 149/79; PULSE 80; RESP 20; TEMP 36.3; O2SAT 96
[2023-06-23] MEDS: amLODIPine Besylate 10 MG TABLET PO (08:55)
[2023-06-23] MEDS: Rivastigmine Tartrate 1.5 MG CAPSULE PO ×2 (08:55→20:59)
[2023-06-23] MEDS: QUEtiapine Fumarate 50 MG TABLET PO (08:55)
[2023-06-23] MEDS: hydroCHLOROthiazide 25 MG TABLET PO (08:55)
[2023-06-23 18:00] VITALS: BP 158/69; PULSE 70; RESP 18; TEMP 36.8; O2SAT 98
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
[2023-06-23] MEDS: Losartan Potassium 50 MG TABLET PO (20:59)
[2023-06-23] MEDS: QUEtiapine Fumarate 200 MG TABLET PO (21:00)
[2023-06-23] MEDS: traZODone HCL 100 MG TABLET PO (21:00)
[2023-06-24 08:00] VITALS: BP 130/76; PULSE 70; RESP 18; TEMP 36.7; O2SAT 98
[2023-06-24] MEDS: hydroCHLOROthiazide 25 MG TABLET PO (08:32)
[2023-06-24] MEDS: QUEtiapine Fumarate 50 MG TABLET PO (08:32)
[2023-06-24] MEDS: Rivastigmine Tartrate 1.5 MG CAPSULE PO ×2 (08:32→20:52)
[2023-06-24] MEDS: amLODIPine Besylate 10 MG TABLET PO (08:32)
[2023-06-24 18:00] VITALS: BP 121/59; PULSE 68; RESP 18; TEMP 37; O2SAT 97
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
[2023-06-24] MEDS: QUEtiapine Fumarate 200 MG TABLET PO (20:52)
[2023-06-24] MEDS: Losartan Potassium 50 MG TABLET PO (20:52)
[2023-06-24] MEDS: traZODone HCL 100 MG TABLET PO (20:52)
[2023-06-24] MEDS: Acetaminophen 325 MG TABLET 650 MG PO (20:52)
[2023-06-24] MEDS: hydrOXYzine HCL 25 MG TABLET PO (20:52)
[2023-06-25 07:45] VITALS: BP 124/71; PULSE 81; RESP 18; TEMP 36.7; O2SAT 98
[2023-06-25] MEDS: QUEtiapine Fumarate 50 MG TABLET PO (08:42)
[2023-06-25] MEDS: hydroCHLOROthiazide 25 MG TABLET PO (08:42)
[2023-06-25] MEDS: amLODIPine Besylate 10 MG TABLET PO (08:42)
[2023-06-25] MEDS: Rivastigmine Tartrate 1.5 MG CAPSULE PO ×2 (08:42→20:26)
[2023-06-25 18:00] VITALS: BP 143/70; PULSE 72; RESP 18; TEMP 37.2; O2SAT 99
[2023-06-25] MEDS: hydrOXYzine HCL 25 MG TABLET PO (20:26)
[2023-06-25] MEDS: QUEtiapine Fumarate 200 MG TABLET PO (20:27)
[2023-06-25] MEDS: Losartan Potassium 50 MG TABLET PO (20:27)
[2023-06-25] MEDS: traZODone HCL 100 MG TABLET PO (20:27)
[2023-06-26 08:50] VITALS: BP 133/61; PULSE 83; RESP 16; O2SAT 99
[2023-06-26] MEDS: amLODIPine Besylate 10 MG TABLET PO (08:53)
[2023-06-26] MEDS: hydroCHLOROthiazide 25 MG TABLET PO (08:53)
[2023-06-26] MEDS: Rivastigmine Tartrate 1.5 MG CAPSULE PO ×2 (08:53→20:15)
[2023-06-26] MEDS: QUEtiapine Fumarate 50 MG TABLET PO (08:53)
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
[2023-06-26 18:00] VITALS: BP 137/60; PULSE 75; RESP 18; TEMP 36.6; O2SAT 97
[2023-06-26] MEDS: QUEtiapine Fumarate 200 MG TABLET PO (20:15)
[2023-06-26] MEDS: traZODone HCL 100 MG TABLET PO (20:16)
[2023-06-26] MEDS: hydrOXYzine HCL 25 MG TABLET PO (20:16)
[2023-06-26] MEDS: Losartan Potassium 50 MG TABLET PO (20:16)
[2023-06-27 08:45] VITALS: BP 126/76; PULSE 76; RESP 17; TEMP 36.1; O2SAT 98
[2023-06-27] MEDS: Rivastigmine Tartrate 1.5 MG CAPSULE PO ×2 (08:47→20:38)
[2023-06-27] MEDS: amLODIPine Besylate 10 MG TABLET PO (08:48)
[2023-06-27] MEDS: QUEtiapine Fumarate 50 MG TABLET PO (08:48)
[2023-06-27] MEDS: hydroCHLOROthiazide 25 MG TABLET PO (08:48)
[2023-06-27 18:00] VITALS: BP 143/71; PULSE 77; RESP 18; TEMP 37.1; O2SAT 95
[2023-06-27] MEDS: traZODone HCL 100 MG TABLET PO (20:38)
[2023-06-27] MEDS: QUEtiapine Fumarate 200 MG TABLET PO (20:38)
[2023-06-27] MEDS: Losartan Potassium 50 MG TABLET PO (20:38)
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
[2023-06-28 06:00] VITALS: BP 127/67; PULSE 79; RESP 18; TEMP 35.9; O2SAT 99
[2023-06-28] MEDS: amLODIPine Besylate 10 MG TABLET PO (08:36)
[2023-06-28] MEDS: Rivastigmine Tartrate 1.5 MG CAPSULE PO ×2 (08:36→20:34)
[2023-06-28] MEDS: QUEtiapine Fumarate 50 MG TABLET PO (08:36)
[2023-06-28] MEDS: hydroCHLOROthiazide 25 MG TABLET PO (08:36)
[2023-06-28 14:53] VITALS: BMI 24.3
[2023-06-28 19:50] VITALS: BP 120/58; PULSE 77; RESP 16; TEMP 36.6; O2SAT 95
[2023-06-28 20:34] LABS: TS Negative Control Passed; TS Panel A 0; TS Panel B 0; TS Positive Control Passed; TSpotTB Negative (Negative)
[2023-06-28] MEDS: QUEtiapine Fumarate 200 MG TABLET PO (20:34)
[2023-06-28] MEDS: traZODone HCL 100 MG TABLET PO (20:34)
[2023-06-28] MEDS: Losartan Potassium 50 MG TABLET PO (20:34)
[2023-06-29 08:00] VITALS: BP 136/57; PULSE 77; RESP 18; TEMP 36; O2SAT 97
[2023-06-29] MEDS: QUEtiapine Fumarate 50 MG TABLET PO (08:19)
[2023-06-29] MEDS: Rivastigmine Tartrate 1.5 MG CAPSULE PO ×2 (08:19→20:10)
[2023-06-29] MEDS: amLODIPine Besylate 10 MG TABLET PO (08:19)
[2023-06-29] MEDS: hydroCHLOROthiazide 25 MG TABLET PO (08:19)
[2023-06-29 18:00] VITALS: BP 137/90; PULSE 64; RESP 16; TEMP 36.3; O2SAT 98
[2023-06-29] MEDS: QUEtiapine Fumarate 200 MG TABLET PO (20:10)
[2023-06-29] MEDS: traZODone HCL 100 MG TABLET PO (20:11)
[2023-06-29] MEDS: Losartan Potassium 50 MG TABLET PO (20:11)
[2023-06-29] MEDS: hydrOXYzine HCL 25 MG TABLET PO (21:08)
[2023-06-29] MEDS: traZODone HCL 50 MG TABLET PO (21:08)
[2023-06-30 08:10] VITALS: BP 151/85; PULSE 75; RESP 18; TEMP 36.6; O2SAT 96
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
[2023-06-30] MEDS: hydroCHLOROthiazide 25 MG TABLET PO (08:36)
[2023-06-30] MEDS: Rivastigmine Tartrate 1.5 MG CAPSULE PO ×2 (08:37→20:06)
[2023-06-30] MEDS: amLODIPine Besylate 10 MG TABLET PO (08:37)
[2023-06-30] MEDS: QUEtiapine Fumarate 50 MG TABLET PO (08:37)
[2023-06-30 18:00] VITALS: BP 142/77; PULSE 68; RESP 18; TEMP 36.2; O2SAT 98
[2023-06-30] MEDS: hydrOXYzine HCL 25 MG TABLET PO (20:06)
[2023-06-30] MEDS: traZODone HCL 100 MG TABLET PO (20:06)
[2023-06-30] MEDS: Losartan Potassium 50 MG TABLET PO (20:06)
[2023-06-30] MEDS: QUEtiapine Fumarate 200 MG TABLET PO (20:07)
[2023-06-30] MEDS: traZODone HCL 50 MG TABLET PO (20:07)
[2023-07-01 08:15] VITALS: BP 136/64; PULSE 69; RESP 18; TEMP 36.6; O2SAT 96
[2023-07-01] MEDS: amLODIPine Besylate 10 MG TABLET PO (08:17)
[2023-07-01] MEDS: hydroCHLOROthiazide 25 MG TABLET PO (08:17)
[2023-07-01] MEDS: Rivastigmine Tartrate 1.5 MG CAPSULE PO ×2 (08:17→20:32)
[2023-07-01] MEDS: QUEtiapine Fumarate 50 MG TABLET PO (08:17)
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
[2023-07-01 18:00] VITALS: BP 166/76; PULSE 77; RESP 18; TEMP 36.2; O2SAT 96
[2023-07-01] MEDS: Losartan Potassium 50 MG TABLET PO (20:31)
[2023-07-01] MEDS: QUEtiapine Fumarate 200 MG TABLET PO (20:31)
[2023-07-01] MEDS: traZODone HCL 100 MG TABLET PO (20:32)
[2023-07-02 08:37] VITALS: BP 148/63; PULSE 752; RESP 18; TEMP 36.2; O2SAT 100
[2023-07-02] MEDS: amLODIPine Besylate 10 MG TABLET PO (08:43)
[2023-07-02] MEDS: Rivastigmine Tartrate 1.5 MG CAPSULE PO ×2 (08:43→20:50)
[2023-07-02] MEDS: QUEtiapine Fumarate 50 MG TABLET PO (08:43)
[2023-07-02] MEDS: hydroCHLOROthiazide 25 MG TABLET PO (08:44)
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
[2023-07-02 18:00] VITALS: BP 125/62; PULSE 71; RESP 18; TEMP 36.7; O2SAT 96
[2023-07-02] MEDS: Losartan Potassium 50 MG TABLET PO (20:49)
[2023-07-02] MEDS: QUEtiapine Fumarate 200 MG TABLET PO (20:50)
[2023-07-02] MEDS: traZODone HCL 100 MG TABLET PO (20:50)
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
[2023-07-03 09:59] VITALS: BP 123/69; PULSE 73; RESP 16; TEMP 36.1; O2SAT 93
[2023-07-03] MEDS: hydroCHLOROthiazide 25 MG TABLET PO (10:11)
[2023-07-03] MEDS: Rivastigmine Tartrate 1.5 MG CAPSULE PO ×2 (10:11→20:31)
[2023-07-03] MEDS: amLODIPine Besylate 10 MG TABLET PO (10:11)
[2023-07-03] MEDS: QUEtiapine Fumarate 50 MG TABLET PO ×2 (10:11)
[2023-07-03] MEDS: Losartan Potassium 50 MG TABLET PO (20:31)
[2023-07-03] MEDS: traZODone HCL 100 MG TABLET PO (20:31)
[2023-07-03] MEDS: QUEtiapine Fumarate 200 MG TABLET PO (20:31)
[2023-07-03 21:49] VITALS: BP 144/66; PULSE 56; RESP 20; O2SAT 98
[2023-07-04 06:00] VITALS: BP 133/60; PULSE 71; RESP 16; TEMP 36.6; O2SAT 98
[2023-07-04] MEDS: hydroCHLOROthiazide 25 MG TABLET PO (08:39)
[2023-07-04] MEDS: Rivastigmine Tartrate 1.5 MG CAPSULE PO ×2 (08:39→19:53)
[2023-07-04] MEDS: amLODIPine Besylate 10 MG TABLET PO (08:39)
[2023-07-04] MEDS: QUEtiapine Fumarate 50 MG TABLET PO (08:40)
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
[2023-07-04 18:00] VITALS: BP 126/56; PULSE 64; RESP 18; TEMP 36.4; O2SAT 96
[2023-07-04] MEDS: Acetaminophen 325 MG TABLET 650 MG PO (19:52)
[2023-07-04] MEDS: QUEtiapine Fumarate 200 MG TABLET PO (19:54)
[2023-07-04] MEDS: hydrOXYzine HCL 25 MG TABLET PO (19:54)
[2023-07-04] MEDS: Losartan Potassium 50 MG TABLET PO (19:54)
[2023-07-04] MEDS: traZODone HCL 100 MG TABLET PO (19:55)
[2023-07-05 08:09] VITALS: BP 146/73; PULSE 73; RESP 18; TEMP 35.8; O2SAT 100
[2023-07-05] MEDS: hydroCHLOROthiazide 25 MG TABLET PO (08:24)
[2023-07-05] MEDS: Rivastigmine Tartrate 1.5 MG CAPSULE PO ×2 (08:24→21:08)
[2023-07-05] MEDS: QUEtiapine Fumarate 50 MG TABLET PO (08:24)
[2023-07-05] MEDS: amLODIPine Besylate 10 MG TABLET PO (08:24)
[2023-07-05 09:51] VITALS: BMI 24.5
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
[2023-07-05 18:00] VITALS: BP 144/95; PULSE 81; RESP 16; TEMP 35.7; O2SAT 99
[2023-07-05] MEDS: Losartan Potassium 50 MG TABLET PO (21:08)
[2023-07-05] MEDS: QUEtiapine Fumarate 200 MG TABLET PO (21:08)
[2023-07-05] MEDS: traZODone HCL 100 MG TABLET PO (21:09)
[2023-07-05] MEDS: hydrOXYzine HCL 25 MG TABLET PO (21:09)
[2023-07-06 07:39] VITALS: BP 143/73; PULSE 66; RESP 16; TEMP 36.6; O2SAT 98
[2023-07-06] MEDS: Rivastigmine Tartrate 1.5 MG CAPSULE PO ×2 (08:31→20:44)
[2023-07-06] MEDS: QUEtiapine Fumarate 50 MG TABLET PO (08:31)
[2023-07-06] MEDS: hydroCHLOROthiazide 25 MG TABLET PO (08:31)
[2023-07-06] MEDS: amLODIPine Besylate 10 MG TABLET PO (08:31)
[2023-07-06 18:00] VITALS: BP 128/62; PULSE 73; RESP 18; TEMP 36.1; O2SAT 98
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
[2023-07-06] MEDS: Losartan Potassium 50 MG TABLET PO (20:43)
[2023-07-06] MEDS: QUEtiapine Fumarate 200 MG TABLET PO (20:44)
[2023-07-06] MEDS: traZODone HCL 100 MG TABLET PO (20:48)
[2023-07-07 08:25] VITALS: BP 144/73; PULSE 77; RESP 17; TEMP 36.6; O2SAT 98
[2023-07-07] MEDS: hydroCHLOROthiazide 25 MG TABLET PO (08:42)
[2023-07-07] MEDS: QUEtiapine Fumarate 50 MG TABLET PO (08:43)
[2023-07-07] MEDS: Rivastigmine Tartrate 1.5 MG CAPSULE PO ×2 (08:43→20:42)
[2023-07-07] MEDS: amLODIPine Besylate 10 MG TABLET PO (08:43)
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
[2023-07-07 18:00] VITALS: BP 155/74; PULSE 63; RESP 18; TEMP 36.3; O2SAT 99
[2023-07-07] MEDS: Losartan Potassium 50 MG TABLET PO (20:42)
[2023-07-07] MEDS: QUEtiapine Fumarate 200 MG TABLET PO (20:42)
[2023-07-07] MEDS: traZODone HCL 100 MG TABLET PO (20:43)
[2023-07-08 08:00] VITALS: BP 134/66; PULSE 73; RESP 18; TEMP 36.9; O2SAT 98
[2023-07-08] MEDS: Rivastigmine Tartrate 1.5 MG CAPSULE PO ×2 (08:16→19:57)
[2023-07-08] MEDS: QUEtiapine Fumarate 50 MG TABLET PO (08:17)
[2023-07-08] MEDS: hydroCHLOROthiazide 25 MG TABLET PO (08:17)
[2023-07-08] MEDS: amLODIPine Besylate 10 MG TABLET PO (08:17)
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
[2023-07-08 18:00] VITALS: BP 117/57; PULSE 68; RESP 18; TEMP 36.8; O2SAT 97
[2023-07-08] MEDS: traZODone HCL 100 MG TABLET PO (19:57)
[2023-07-08] MEDS: traZODone HCL 50 MG TABLET PO (19:57)
[2023-07-08] MEDS: QUEtiapine Fumarate 200 MG TABLET PO (19:58)
[2023-07-08] MEDS: Losartan Potassium 50 MG TABLET PO (19:58)
[2023-07-09 08:05] VITALS: BP 134/65; PULSE 69; RESP 18; TEMP 37; O2SAT 98
[2023-07-09] MEDS: Rivastigmine Tartrate 1.5 MG CAPSULE PO ×2 (08:22→20:20)
[2023-07-09] MEDS: amLODIPine Besylate 10 MG TABLET PO (08:22)
[2023-07-09] MEDS: hydroCHLOROthiazide 25 MG TABLET PO (08:22)
[2023-07-09] MEDS: QUEtiapine Fumarate 50 MG TABLET PO (08:22)
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
[2023-07-09 18:00] VITALS: BP 140/76; PULSE 72; RESP 18; TEMP 37.1; O2SAT 100
[2023-07-09] MEDS: Losartan Potassium 50 MG TABLET PO (20:18)
[2023-07-09] MEDS: QUEtiapine Fumarate 200 MG TABLET PO (20:19)
[2023-07-09] MEDS: traZODone HCL 100 MG TABLET PO (20:20)
[2023-07-10 07:55] VITALS: BP 140/67; PULSE 74; RESP 18; TEMP 36.8; O2SAT 98
[2023-07-10] MEDS: hydroCHLOROthiazide 25 MG TABLET PO (08:03)
[2023-07-10] MEDS: amLODIPine Besylate 10 MG TABLET PO (08:03)
[2023-07-10] MEDS: QUEtiapine Fumarate 50 MG TABLET PO (08:03)
[2023-07-10] MEDS: Rivastigmine Tartrate 1.5 MG CAPSULE PO ×2 (08:03→20:45)
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
[2023-07-10 18:00] VITALS: BP 121/65; PULSE 66; RESP 18; TEMP 36.7; O2SAT 100
[2023-07-10] MEDS: traZODone HCL 100 MG TABLET PO (20:45)
[2023-07-10] MEDS: Losartan Potassium 50 MG TABLET PO (20:45)
[2023-07-10] MEDS: QUEtiapine Fumarate 200 MG TABLET PO (20:46)
[2023-07-11 08:46] VITALS: BP 122/69; PULSE 80; RESP 16; TEMP 36.1; O2SAT 95
[2023-07-11] MEDS: amLODIPine Besylate 10 MG TABLET PO (08:51)
[2023-07-11] MEDS: Rivastigmine Tartrate 1.5 MG CAPSULE PO ×2 (08:51→20:32)
[2023-07-11] MEDS: QUEtiapine Fumarate 50 MG TABLET PO (08:51)
[2023-07-11] MEDS: hydroCHLOROthiazide 25 MG TABLET PO (08:51)
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
[2023-07-11 19:35] VITALS: BP 124/70; PULSE 91; RESP 16; TEMP 36.7; O2SAT 95
[2023-07-11] MEDS: QUEtiapine Fumarate 200 MG TABLET PO (20:32)
[2023-07-11] MEDS: Losartan Potassium 50 MG TABLET PO (20:32)
[2023-07-11] MEDS: traZODone HCL 100 MG TABLET PO (20:32)
[2023-07-12 08:14] VITALS: BP 143/70; PULSE 69; RESP 18; TEMP 36.4; O2SAT 97
[2023-07-12] MEDS: hydroCHLOROthiazide 25 MG TABLET PO (08:16)
[2023-07-12] MEDS: QUEtiapine Fumarate 50 MG TABLET PO (08:16)
[2023-07-12] MEDS: Rivastigmine Tartrate 1.5 MG CAPSULE PO (08:16)
[2023-07-12] MEDS: amLODIPine Besylate 10 MG TABLET PO (08:16)
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
--- NOTE | 2023-07-12 14:51 | PC.NURSE ---
Pt. alert and confused. Oriented to self and only. Pleasant and cheerful disposition. Discharging to [facility]. Pt. will be followed by facility providers and needs no PCP appt. Aware he is leaving and reports readiness. /HCP in to visit and discharge instructions reviewed with her and she verbalized understanding. Pt. left unit via stretcher with belongings and paperwork for [facility] at 1430 accompanied by 3 independent jeweler
== END 2023-07-12 14:30 | DRG 57 ==
LOC: HO.ED 05-16 19:24 → HO.PGERI 05-16 19:34
PROVIDERS: Registered Nurse Emergency; Social Worker; Student in an Organized Health Care Education/Training Program; Admitting Provider Psychiatry & Neurology Psychiatry; Emergency Provider Internal Medicine; PCP Internal Medicine; Visit Provider Psychiatry & Neurology Psychiatry
DX: G30.9 Alzheimer's disease, unspecified (principal); F02.811 Dementia in other diseases classified elsewhere, unspecified severity, with agitation; F02.818 Dementia in other diseases classified elsewhere, unspecified severity, with other behavioral disturbance; Z23 Encounter for immunization; Z75.1 Person awaiting admission to adequate facility elsewhere; Z20.822 Contact with and (suspected) exposure to COVID-19; Z79.899 Other long term (current) drug therapy
CPT/HCPCS: 36415; 80048; 80053; 80061; 80307; 81001; 81003; 82306; 82550; 82607; 82746; 84443; 85025; 86481; 87635; 90686; 93005; 99285; J2060; J3486; S9485

== ENCOUNTER → 2023-05-14 03:55 | Outpatient (BNV) | payer MEDICARE, OTHER, SELFPAY | PROVIDERS: Emergency Provider Internal Medicine; PCP Internal Medicine; Visit Provider Social Worker | DX: G30.9 Alzheimer's disease, unspecified (principal); F02.818 Dementia in other diseases classified elsewhere, unspecified severity, with other behavioral disturbance | CPT/HCPCS: 90792; 99222; 99231; 99232; 99239; 99284 ==

== ENCOUNTER → 2023-05-16 17:38 | Outpatient (BNV) | payer MEDICARE, OTHER, SELFPAY | PROVIDERS: Admitting Provider Psychiatry & Neurology Psychiatry; Emergency Provider Internal Medicine; PCP Internal Medicine; Visit Provider Internal Medicine Cardiovascular Disease | DX: R94.31 Abnormal electrocardiogram [ECG] [EKG] (principal) | CPT/HCPCS: 93010 ==

== ENCOUNTER 2024-04-24 14:47 | Emergency (ER) | payer MEDICARE, OTHER, SELFPAY ==
--- NOTE | ~2024-04-24 | US_ITS ---
EXAMINATION: US SCROTUM CLINICAL INFORMATION: Testicular pain. COMPARISON: CT scan earlier today TECHNIQUE: A sonogram of the scrotum was performed assessing mendoza-scale appearance and color Doppler flow. Spectral Doppler analysis of the arterial and venous flow were performed in the testes bilaterally. FINDINGS: RIGHT: Right testicle measures 4.2 x 2.1 x 3.1 cm, volume 14.3 mL. No focal testicular parenchymal lesions are visualized. Spectral Doppler analysis of the arterial and venous flow is normal in the right testis. Right epididymal head is normal in size. There is a tiny right hydrocele present but no varicocele is seen. Right epididymal Doppler flow is normal. LEFT: Left testicle measures 4.2 x 2.1 x 3.0 cm, volume 13.8 mL. There is slightly inhomogeneous echogenicity of the testis. No focal testicular parenchymal lesions are visualized aside from a few punctate calcifications. Spectral Doppler analysis of the arterial and venous flow is normal in the left testis. Left epididymal head is normal in size. 2 small cysts are present in the epididymis the largest 8 mm. Is a small left hydrocele present but no varicocele is seen. Left epididymal Doppler flow is normal. US/US scrotum doppler IMPRESSION: 1. No evidence of testicular torsion. 2. Small bilateral hydroceles. 3. Small left epididymal cysts.
--- NOTE | ~2024-04-24 | US_ITS ---
EXAMINATION: US SCROTUM CLINICAL INFORMATION: Testicular pain. COMPARISON: CT scan earlier today TECHNIQUE: A sonogram of the scrotum was performed assessing mendoza-scale appearance and color Doppler flow. Spectral Doppler analysis of the arterial and venous flow were performed in the testes bilaterally. FINDINGS: RIGHT: Right testicle measures 4.2 x 2.1 x 3.1 cm, volume 14.3 mL. No focal testicular parenchymal lesions are visualized. Spectral Doppler analysis of the arterial and venous flow is normal in the right testis. Right epididymal head is normal in size. There is a tiny right hydrocele present but no varicocele is seen. Right epididymal Doppler flow is normal. LEFT: Left testicle measures 4.2 x 2.1 x 3.0 cm, volume 13.8 mL. There is slightly inhomogeneous echogenicity of the testis. No focal testicular parenchymal lesions are visualized aside from a few punctate calcifications. Spectral Doppler analysis of the arterial and venous flow is normal in the left testis. Left epididymal head is normal in size. 2 small cysts are present in the epididymis the largest 8 mm. Is a small left hydrocele present but no varicocele is seen. Left epididymal Doppler flow is normal. US/US scrotum IMPRESSION: 1. No evidence of testicular torsion. 2. Small bilateral hydroceles. 3. Small left epididymal cysts.
--- NOTE | ~2024-04-24 | CT_ITS ---
EXAMINATION: CT ABDOMEN AND PELVIS WITHOUT CONTRAST CLINICAL INFORMATION: Lower abdominal pain, groin pain. COMPARISON: 03/25/2019 TECHNIQUE: Multidetector volumetric imaging was performed from the superior aspect of the liver through the pubic symphysis. Sagittal and coronal reformatted images were obtained on the technologist's workstation. This CT examination was performed using dose optimization techniques as appropriate, variously including the following: *Automated exposure control *Adjustment of mA and/or kV according to patient size (this includes techniques or standardized protocols for targeted exams where dose is matched to indication/reason for exam; i.e. extremities or head) *Use of iterative reconstruction technique DLP: 689 mGy-cm FINDINGS: LUNG BASES: No pulmonary consolidation or pleural effusion. Mild respiratory motion on these images through the lower chest. There is atherosclerotic calcification of partially visualized coronary arteries and thoracic aorta. HEPATOBILIARY: Liver has normal size, shape, and attenuation. Gallbladder has a normal appearance. No dilated bile ducts. PANCREAS: No edema, pancreatic ductal dilatation or mass. SPLEEN: Normal. ADRENAL GLANDS: Normal. KIDNEYS AND URETERS: A 1.2 cm cyst of the lateral right kidney has a simple appearance on this noncontrast imaging exam. No renal imaging follow-up recommended. Cortical atrophy of the anterior left lower pole at the site of prior treatment for renal tumor. The ultrasound exam from 02/20/2023 described observation of an avascular area from prior cryoablation. The ureters are unremarkable. No urolithiasis or hydroureteronephrosis. BLADDER: Unremarkable. BOWEL AND PERITONEUM: No dilated bowel loops. The appendix is normal. There are diverticula of the sigmoid colon without evidence of diverticulitis. No abdominal free fluid or free air. ABDOMINAL WALL: Unremarkable. VASCULATURE: There is atherosclerotic calcification of the abdominal aorta. Infrarenal abdominal aorta measures up to 3.1 cm transverse diameter, compared to 2.6 cm on 03/25/2019, and this corresponds to location of an atherosclerotic ulcer seen on 03/25/2019. If patient is deemed to be asymptomatic from the atherosclerotic disease and aneurysm, then recommend imaging follow-up every 3 years. There is no periaortic fat stranding. LYMPH NODES: No pathologic sized lymph nodes in the abdomen or pelvis. No inguinal lymphadenopathy. PELVIC VISCERA: Prostate gland is chronically enlarged; it measures 6.3 x 4.9 x 6.2 cm. No pelvic free fluid. 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 No acute or suspicious osseous. CT/CT abdomen pelvis wo IV con IMPRESSION: * No specific source of lower abdominal or groin pain is identified. No inguinal hernia. * Diverticulosis of the sigmoid colon without diverticulitis. * Chronic prostatomegaly. * Atherosclerotic disease of the abdominal aorta. 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 * Kidneys are not optimally evaluated on this noncontrast examination. There is no evidence of a recurrent tumor at the lower pole of the left kidney.
[2024-04-24 14:51] VITALS: BP 155/69; BP 158/77; PULSE 66; PULSE 73; RESP 18; TEMP 36.8; O2SAT 97; O2SAT 98; BMI 28.3
[2024-04-24 16:16] VITALS: BP 155/77; PULSE 64; RESP 18; TEMP 37; O2SAT 98
--- NOTE | 2024-04-24 16:28 | ED_ITS ---
HPI - Male Genitourinary General Chief complaint: Urogenital-Male Stated complaint: GROIN PAIN [facility] PER EMS Time Seen by Provider: 04/24/24 16:09 History of Present Illness HPI Narrative: Patient is an 83-year-old male with a history of dementia. History of urinary tract infections in the past. Presents today with having pain in the groin area over the last few days. Patient is unable to provide any specifics. He has a history of dementia. Baseline oriented to self only lives in a dementia unit. No difficulty ambulating there was no trauma. Still able to eat but eating less than usual per family. Patient unable to state if it hurts to urinate. Complaining of pain in the generalized groin area. Related Data Home Medications ?Medication ?Instructions ?Recorded ?Confirmed No Known Home Meds 02/16/23 05/14/23 Previous Rx's ?Medication ?Instructions ?Recorded amlodipine 10 mg tablet 10 mg PO DAILY #30 tabs 07/11/23 hydrochlorothiazide 25 mg tablet 25 mg PO DAILY #30 tabs 07/11/23 losartan 50 mg tablet 50 mg PO BEDTIME #30 tabs 07/11/23 quetiapine 200 mg tablet 200 mg PO BEDTIME #30 tabs 07/11/23 quetiapine 50 mg tablet 50 mg PO DAILY #30 tabs 07/11/23 rivastigmine tartrate 1.5 mg 1.5 mg PO BID #60 caps 07/11/23 capsule trazodone 100 mg tablet 100 mg PO BEDTIME #30 tabs 07/11/23 Allergies Allergy/AdvReac Type Severity Reaction Status Date / Time tramadol AdvReac Unknown Severe Verified 04/24/24 14:56 Constipation Review of Systems 2 Review of Systems: Unable to provide detailed review of systems secondary to patient's condition [facility] Past Medical History Attestation statement: The following information was validated with the patient. Medical History H/O urinary retention Renal cell carcinoma of left kidney Malignant neoplasm of left kidney Right inguinal hernia Left inguinal hernia Renal mass Surgical History History of surgery Social History Social History Unable to assess alcohol history related to: Unable to respond Alcohol intake: never Patient Tobacco Use Status: Never used Tobacco Advance Directives: Yes Advance Directives on File: Yes Advance Directives Date on File: 07/13/23 Do you have a plan to hurt others: No Plan service: Yes Sexual orientation: Straight/Heterosexual Cognitive needs: No Hearing needs: No Vision needs: Yes Physical Exam 2 Vital Signs: Vital Signs: Last Vital Signs Temp 98.6 F 04/24/24 16:16 Pulse 64 04/24/24 16:16 Resp 18 04/24/24 16:16 BP 155/77 H 04/24/24 16:16 Pulse Ox 98 04/24/24 16:16 O2 Del Method Room Air 04/24/24 16:16 BMI result Body Mass Index 28.3 Appearance: Alert. Oriented X 1. No acute distress. Eyes: Pupils equal, round and reactive to light. ENT: Pharynx normal. Neck: Normal inspection. Neck supple. No lymph nodes noted. No crepitus CVS: Normal heart rate and rhythm. Pulses normal. Normal S1 and S2 Respiratory: No respiratory distress. Breath sounds normal. No Wheezing. No rales Abdomen: Soft and nontender. No rigidity. No distention. good BS x4 Genital area there is no testicular tenderness on palpation. There is no rash noted in the groin area. There is no hernia that was palpable. There is no discharge noted on stripping of the penis. Skin: Skin warm and dry. Normal skin color. Normal skin turgor. Extremities: No lower extremity edema. Neurovascular intact to all extremities. No Lacerations. No Rash Neuro: Oriented X 1. No motor deficit. No sensory deficit. Moving all extermities. No slurred speech Medical Decision Making Medical Decision Making [facility] Narrative: Patient urine showed no gross signs of infection. White count is normal. Electrolytes normal. CT scan of the abdomen pelvis was negative for any obstruction abscess perforation. No evidence for kidney stones. No evidence for large hernia. Ultrasound of the scrotal area showed no evidence of epididymitis. No evidence of torsion. Patient well-appearing. Will discharge patient home no acute pain Differential Diagnosis Differential Diagnoses: The differential diagnosis associated with the presentation includes Hernia, epididymitis, kidney stone, obstruction, abscess, skin infection Admission/Observation Consideration of admission/observation: Escalation of care including admission/observation considered Lab Data [facility] Lab Attestation statement: I reviewed the patient's lab results. 04/24/24 17:02 04/24/24 17:02 Labs: Lab Results 04/24/24 Range/Units 17:02 WBC 7.1 (4.8-10.8) X10*3/uL RBC 4.22 L (4.60-5.80) X10*6/uL Hgb 12.1 L (14.0-18.0) g/dl Hct 34.2 L (42.0-52.0) % MCV 81.0 (80.0-98.0) fL MCH 28.7 (27.0-33.0) pg MCHC 35.4 (31.0-36.0) g/dl RDW 12.8 (11.0-16.0) % Plt Count 282 D (160-400) X10*3/uL MPV 8.6 L (9.4-12.4) fL Immature Gran % (Auto) 0.6 H (0.0-0.4) % Neut % (Auto) 62.1 (45-73) % Lymph % (Auto) 25.3 (20-40) % [place] % (Auto) 6.9 (2-11) % Eos % (Auto) 4.4 H (0-4) % Baso % (Auto) 0.7 (0-2) % Lymph # (Auto) 1.8 (1.2-4.9) X10*3/uL [place] # (Auto) 0.5 (0.1-1.2) X10*3/uL Eos # (Auto) 0.3 (0.0-0.4) X10*3/uL Baso # (Auto) 0.1 (0.0-0.2) X10*3/uL Abs Immat Gran (auto) 0.04 H (0.00-0.03) X10*3/uL Absolute Neuts (auto) 4.4 (2.0-8.3) x10*3/uL Absolute Nucleated RBC 0.000 (0.0-0.012) X10*3/uL Nucleated RBC % (auto) 0.0 (0.0-0.2) /100WBC Sodium 139 (135-145) mmol/L Potassium 3.9 (3.3-5.1) mmol/L Chloride 104 (96-108) mmol/L Carbon Dioxide 26 (22-29) mmol/L Anion Gap 13 (12-20) BUN 26 H (9-16) mg/dL Creatinine 0.88 (0.5-1.4) mg/dL Estim Creat Clear Calc 77.3 Estimated GFR > 60 Random Glucose 109 (60-115) mg/dL Calcium 9.5 (8.4-10.2) mg/dL Urine Color Yellow Urine Appearance Clear Urine pH 7.0 (5.0-9.0) Ur Specific [place] 1.015 (1.005-1.025) Urine Protein Negative (Neg-Trace) mg/dL Urine Glucose (UA) Negative (Negative) mg/dL Urine Ketones Negative (Negative) mg/dL Urine Blood Negative (Negative) Urine Nitrite Negative (Negative) Ur Leukocyte Esterase Negative (Negative) Urine RBC 0-2 (0-2) /HPF Urine WBC 0-5 (0-5) /HPF Ur Squamous Epith Cells 0-2 (0-2) /HPF Urine Bacteria None Seen (None Seen) Hyaline Casts 0-2 (0-2) /LPF Independent Interpretation I performed an independent interpretation of an: CT Scan (No gross finding noted.) Radiology Impression Discussion of test interpretation with radiology: I have reviewed the radiologist's reading. Independent Historian Clinical information obtained from an independent historian. History obtained from or confirmed by: Spouse Chronic Conditions History of dementia Discharge Plan Discharge Clinical Impression: Groin pain Patient Disposition: Home, Self-Care Instructions: Groin Pain (ED) Additional Instructions: Atherosclerotic disease of the abdominal aorta. 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 Follow-up advised. Prescriptions: No Action losartan 50 mg Tablet 50 mg PO BEDTIME Qty: 30 0RF Protocol: Hold for SBP< HOLD for SBP < : 90 rivastigmine tartrate 1.5 mg Capsule 1.5 mg PO BID Qty: 60 0RF quetiapine 200 mg Tablet 200 mg PO BEDTIME Qty: 30 0RF trazodone 100 mg Tablet 100 mg PO BEDTIME Qty: 30 0RF amlodipine 10 mg Tablet 10 mg PO DAILY Qty: 30 0RF Protocol: Hold for SBP< HOLD for SBP < : 90 hydrochlorothiazide 25 mg Tablet 25 mg PO DAILY Qty: 30 0RF Protocol: Hold for SBP< HOLD for SBP < : 90 quetiapine 50 mg Tablet 50 mg PO DAILY Qty: 30 0RF No Known Home Meds Referrals: Eboni Tyson MD [Primary Care Provider] - 04/29/24 Print Language: Malay
[2024-04-24 17:11] LABS: MANUAL DIFF FLAG NO
[2024-04-24 17:15] LABS: Appearance Urine Clear; Color Urine Yellow; Glucose Urine UA Negative (Negative); Leukocyte Esterase Urine Negative (Negative); Nitrite Urine Negative (Negative); Specific Gravity - Urine 1.015 (1.005-1.025); Urine Blood Negative (Negative); Urine Ketones Negative (Negative); Urine Protein Negative (Neg-Trace)
[2024-04-24 17:17] LABS: Basophils Absolute Auto 0.1 X10*3/uL (0.0-0.2); Basophils Percent Auto 0.7 % (0-2); Eosinophils Absolute Auto 0.3 X10*3/uL (0.0-0.4); Eosinophils Percent Auto 4.4 % (0-4); Hematocrit 34.2 % (42.0-52.0); Hemoglobin 12.1 g/dl (14.0-18.0); Imm Gran Abs Auto 0.04 X10*3/uL (0.00-0.03); Imm Gran Pct Auto 0.6 % (0.0-0.4); Lymphocytes Absolute Auto 1.8 X10*3/uL (1.2-4.9); Lymphocytes Percent Auto 25.3 % (20-40); Mean Corpuscular HGB Conc 35.4 g/dl (31.0-36.0); Mean Corpuscular Hemoglobin 28.7 pg (27.0-33.0); Mean Platelet Volume 8.6 fL (9.4-12.4); Monocytes Absolute Auto 0.5 X10*3/uL (0.1-1.2); Monocytes Percent Auto 6.9 % (2-11); Neutrophils Absolute Auto 4.4 x10*3/uL (2.0-8.3); Neutrophils Percent Auto 62.1 % (45-73); Platelet Count 282 X10*3/uL (160-400); Red Blood Count 4.22 X10*6/uL (4.60-5.80); Red Cell Distribution Width 12.8 % (11.0-16.0); White Blood Count 7.1 X10*3/uL (4.8-10.8)
[2024-04-24 17:32] LABS: Bacteria Urine None Seen (None Seen); Hyaline Casts Urine 0-2 /LPF (0-2); RBC Urine 0-2 /HPF (0-2); Squamous Epithelial Cell Urine 0-2 /HPF (0-2); WBC Urine 0-5 /HPF (0-5)
[2024-04-24 17:34] LABS: Anion Gap 13 (12-20); Blood Urea Nitrogen 26 mg/dL (9-16); Calcium 9.5 mg/dL (8.4-10.2); Carbon Dioxide 26 mmol/L (22-29); Chloride 104 mmol/L (96-108); Creatinine Clr Calc Pharmacy 77.3; Estimated Glomerular Filt Rate > 60; Glucose Random 109 mg/dL (60-115); Potassium 3.9 mmol/L (3.3-5.1); Sodium 139 mmol/L (135-145)
[2024-04-24 19:38] VITALS: BP 175/88; PULSE 64; RESP 16; TEMP 36.8; O2SAT 97
[2024-04-24 19:46] VITALS: BP 175/88; PULSE 64; RESP 16; TEMP 36.8; O2SAT 97
== END 2024-04-24 19:47 | disposition home or self-care (01) ==
PROVIDERS: Emergency Provider Emergency Medicine Emergency Medical Services; PCP Internal Medicine
DX: R10.30 Lower abdominal pain, unspecified (principal); N50.819 Testicular pain, unspecified; F03.90 Unspecified dementia, unspecified severity, without behavioral disturbance, psychotic disturbance, mood disturbance, and anxiety; Z79.899 Other long term (current) drug therapy; Z85.528 Personal history of other malignant neoplasm of kidney
CPT/HCPCS: 36415; 51798; 74176; 76870; 80048; 81001; 85025; 93975; 99284

== ENCOUNTER 2024-07-22 11:07 | Outpatient (AMB) | payer MEDICARE, OTHER, SELFPAY ==
[2024-07-22 11:13] VITALS: BMI 28.2
--- NOTE | 2024-07-22 11:13 | MHC.OFFVIS ---
Vital Signs 07/22/24 11:13 Height 6 ft Weight 208 lb BMI 28.2 Intake Visit Reasons: REHAB SPECIALIST/PCP referral for AAA 3.1cm infrarenal Intake Note: REHAB SPECIALIST/ [place] Referral where pt resides for memory loss. Pt had CT Abd/pelvis 04/24/24 that showed 3.1 cm infrarenal anuerysm. Pt has study in 2019 where it measured 2.6cm. Accompanied by: Spouse Allergies tramadol Adverse Reaction (Unknown, Verified 07/22/24 11:21) Severe Constipation HPI HPI REHAB SPECIALIST/PCP referral for AAA 3.1cm infrarenal: Details: Very pleasant 83-year-old gentleman presents for evaluation an incidental finding of an aortic aneurysm. Currently a resident of a dementia unit. This was a more recent thing over the last 2-[address] years[address] He had a CT scan done in the emergency room secondary to abdominal pain. An incidental finding of a 3.1 cm aortic aneurysm was made. Upon discussion with him and his they report no prior history of smoking or drinking. He is a nondiabetic. He was in the [employer] and was part of the [employer] for 41 years. In terms of his aneurysm he is completely asymptomatic. 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 [facility] Medical History H/O urinary retention Renal cell carcinoma of left kidney Malignant neoplasm of left kidney Right inguinal hernia Left inguinal hernia Renal mass Surgical History History of surgery Social History Unable to assess alcohol history related to: Unable to respond Alcohol intake: never Patient Tobacco Use Status: Never used Tobacco Advance Directives Date on File: 07/13/23 service: Yes Sexual orientation: Straight/Heterosexual Cognitive needs: No Hearing needs: No Vision needs: Yes Review of Systems Const All systems reviewed & are unremarkable except as noted in HPI and below Reports no additional complaints ENT Reports Normal hearing present Card Denies chest pain, Denies chest pain at rest, Denies chest pain with activity and Denies pedal edema Resp Denies cough GI Denies abdominal pain Musc Denies abnormal gait, Denies muscle cramps and Denies radiating pain into limb Skin/Breast Denies skin ulcer and Denies wounds Neuro Reports Normal hearing present and Denies abnormal gait Psych Reports no additional complaints Physical Exam Vital Signs: BMI result Body Mass Index 28.2 Const General: cooperative, healthy appearing and comfortable Orientation/consciousness: oriented to person, oriented to place and oriented to time HEENT Head: Yes normal to inspection Neck Neck: Yes normal visual inspection Carotids: no bruits Chest Chest palpation & inspection: normal inspection of the chest Resp Effort & Inspection: normal respiratory effort and able to speak in complete sentences Auscultation: clear to auscultation bilaterally, no crackles, no rales, no rhonchi and no wheezes Cardio Rate: regular rate Rhythm: regular rhythm Heart sounds: S1 normal heart sound present and S2 normal heart sound present Bruits: no carotid bruits Peripheral pulses: Peripheral pulses 2+ throughout GI Inspection: Yes normal to inspection Skin Wounds: no wounds Hair: normal Neuro General: oriented to person, oriented to place and oriented to time Cranial nerves: Yes CN's II-XII intact bilaterally and Yes Normal hearing present Cognition (Neuro): normal cognition Motor exam (neuro): 5/5 motor strength present throughout Extrem Other: venous exam: No significant superficial varicosities or spider telangiectasias, minimal edema General: No clubbing, No cyanosis and No edema Psych Appearance: grossly normal Mental Status: mental status grossly normal Speech and movement: Normal speech and movement present Results Reviewed Results Reviewed: CT scan dated 04/24/2024 demonstrates aortic aneurysm of 3.1 cm in transverse diameter. It is only about 2.8 in true AP. Written report and images were reviewed Assessment & Plan Assessment & Plan (1) AAA (abdominal aortic aneurysm) without rupture: Code(s): I71.40 - Abdominal aortic aneurysm, without rupture, unspecified Category: Medical Qualifiers: Abdominal aorta location: infrarenal aorta Qualified Code(s): I71.43 - Infrarenal abdominal aortic aneurysm, without rupture Plan: In short patient has radiologic evidence of a AAA on 3.[address] scan. We have discussed the pathophysiology of aortic aneurysms and the risk of ruptures. We have discussed rupture risk based on size. In addition we have discussed conservative measures and risk factor modification for prevention of increase in size of the aneurysm. the patient is scheduled for surveillance follow-up in approximately 1 year with ultrasound. Thank you for allowing us to participate in the care of this patient Please note a longitudinal relationship has been created with the patient and we have been following and surveillance this chronic condition. Orders: Orders US abdominal aortic aneurysm 1 Year I71.43 - Infrarenal abdominal aortic aneurysm, without rupture Coding Level of Care Code New Pt Level 4 (22625) Complex EM visit Add On G2211 Diagnoses Infrarenal abdominal aortic aneurysm (AAA) without rupture I71.43 Abdominal aorta location: infrarenal aorta
== END 2024-07-22 12:46 | disposition home or self-care (01) ==
PROVIDERS: PCP Internal Medicine; Visit Provider Surgery Vascular Surgery
DX: I71.43 Infrarenal abdominal aortic aneurysm, without rupture (principal)
CPT/HCPCS: 99204; G2211

== ENCOUNTER → 2024-07-22 11:07 | Outpatient (BNVA) | payer MEDICARE, OTHER, SELFPAY | PROVIDERS: PCP Internal Medicine; Visit Provider Surgery Vascular Surgery | DX: I71.43 Infrarenal abdominal aortic aneurysm, without rupture (principal) | CPT/HCPCS: 99202 ==

== ENCOUNTER 2024-10-17 12:40 | Emergency (ER) | payer MEDICARE, OTHER, SELFPAY ==
--- NOTE | ~2024-10-17 | XR_ITS ---
EXAMINATION: XR KNEE, RIGHT CLINICAL INFORMATION: rt knee pain COMPARISON: None available. TECHNIQUE: Two views of the right knee. FINDINGS: Normal bony mineralization. No fracture, dislocation, or suspicious bone lesion. Moderate medial and patellofemoral compartment joint space narrowing, with small marginal osteophytes. Mild lateral compartment narrowing. Normal alignment. Spurring of the tibial spines. Subtle chondrocalcinosis is present in the medial and lateral compartments suggesting CPPD. There is a suprapatellar joint effusion present. Soft tissues demonstrate vascular calcifications but are otherwise normal. XR/XR knee RT 2V IMPRESSION: 1. No fracture or dislocation. 2. Suprapatellar joint effusion. 3. 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 Electronically signed by: Ton Russ MD 10/17/2024 02:06 PM [facility]
--- NOTE | ~2024-10-17 | CT_ITS ---
EXAMINATION: CT CERVICAL SPINE WITHOUT CONTRAST CLINICAL INFORMATION: Neck pain, fall, unwitnessed. COMPARISON: None available. TECHNIQUE: Spiral CT of the cervical spine was performed in axial plane using contiguous axial slice sections from the petrous ridges to the superior mediastinum. Sagittal, coronal, and thin section axial reformatted images were constructed from the axial data set. This CT examination was performed using dose optimization techniques as appropriate, variously including the following: *Automated exposure control *Adjustment of mA and/or kV according to patient size (this includes techniques or standardized protocols for targeted exams where dose is matched to indication/reason for exam; i.e. extremities or head) *Use of iterative reconstruction technique DLP = 1267 mGy^cm FINDINGS: No scoliosis. Normal lordosis. No fracture, compression deformity, or evidence of traumatic subluxation. No suspicious bone lesion. Normal sagittal alignment. Craniocervical junction and C1-2 articulation intact and normally aligned. Severe disc space loss noted C5-6 and C6-7. Normal facet alignment. Multilevel mild facet and more prominent uncinate hypertrophic changes are evident. There is no evidence of the large disc herniation or high-grade canal stenosis. There is no prevertebral soft tissue abnormality. Moderate calcification of the carotid bulbs. Mildly heterogeneous thyroid without dominant nodule. Dermal calcifications noted. Lung apices demonstrate mild pleural parenchymal scarring but are otherwise clear. CT/CT cervical spine wo IV con IMPRESSION: 1. No CT evidence of acute cervical spine fracture or injury. 2. Moderate degenerative spondylosis. 3. Ancillary findings as discussed. Electronically signed by: Ton Russ MD 10/17/2024 03:09 PM [facility]
--- NOTE | ~2024-10-17 | XR_ITS ---
EXAMINATION: XR PELVIS CLINICAL INFORMATION: b/l hip pain R>L COMPARISON: None available. TECHNIQUE: AP view of the pelvis. FINDINGS: Normal bone mineralization. No fracture, dislocation, or suspicious focal bone lesion. There is a bone island in the right femoral neck. There are mild osteoarthritic changes in the right greater than left hip joints. 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 Femoral heads are normal in contour without AVN. Pelvis is intact. Sacrum and SI joints appear normal. Degenerative changes in the lower lumbar spine. Soft tissues demonstrate vascular calcifications but are otherwise normal. XR/XR pelvis 1-2V IMPRESSION: 1. No acute findings. 2. Mild degenerative arthritis in both hip joints, with findings also suggestive of cam-type femoral acetabular impingement. Electronically signed by: Ton Russ MD 10/17/2024 02:10 PM [facility]
--- NOTE | ~2024-10-17 | XR_ITS ---
EXAMINATION: XR KNEE, LEFT CLINICAL INFORMATION: lt knee pain COMPARISON: None available. TECHNIQUE: Two views of the left knee. FINDINGS: Normal bony mineralization. No fracture, dislocation, or suspicious bone lesion. Moderate medial and patellofemoral compartment joint space narrowing, with small marginal osteophytes. Compensatory mild widening of the lateral compartment. Mild varus angulation of the knee joint. Otherwise normal alignment. Spurring of the tibial spines. Subtle chondrocalcinosis is present in the medial and lateral compartments suggesting CPPD. There is a suprapatellar joint effusion present. Soft tissues demonstrate vascular calcifications but are otherwise normal. XR/XR knee LT 2V IMPRESSION: 1. No fracture or dislocation. 2. Suprapatellar joint effusion. 3. 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 Electronically signed by: Ton Russ MD 10/17/2024 02:04 PM [facility]
--- NOTE | ~2024-10-17 | US_ITS ---
EXAMINATION: US TRIPLEX LOWER EXTREMITY, RIGHT CLINICAL INFORMATION: Right ovary lower extremity pain. COMPARISON: None available. TECHNIQUE: Color-flow triplex imaging with spectral analysis and compression Doppler were performed on the right lower extremity. FINDINGS: Respiratory variation, normal compression and augmented flow are noted throughout the right lower extremity. The visualized common femoral vein, superficial femoral vein, profunda femoral vein, popliteal vein and midcalf peroneal and posterior tibial venous segments show no evidence of deep venous thrombosis. There is no Chapa's cyst. US/US venous duplex LE RT IMPRESSION: No evidence of deep venous thrombosis involving the right lower extremity. Electronically signed by: Judson Rodriguez MD 10/17/2024 02:08 PM [facility]
--- NOTE | ~2024-10-17 | CT_ITS ---
EXAMINATION: CT HEAD WITHOUT CONTRAST CLINICAL INFORMATION: Fall, unclear time. COMPARISON: 12/21/2022. TECHNIQUE: Contiguous axial imaging was performed from the skull base to vertex without intravenous administration of contrast. This CT examination was performed using dose optimization techniques as appropriate, variously including the following: *Automated exposure control *Adjustment of mA and/or kV according to patient size (this includes techniques or standardized protocols for targeted exams where dose is matched to indication/reason for exam; i.e. extremities or head) *Use of iterative reconstruction technique FINDINGS: There is no evidence of intracranial hemorrhage or extra-axial fluid collection. There is no mass effect, or edema. No CT evidence of acute territorial infarct. Ventricles, sulci, and cisterns are diffusely prominent, reflective of age related involutional changes. No hydrocephalus. No midline shift. Negative hyperdense MCA sign. Negative insular ribbon. Moderate low density white matter changes, in keeping with small vessel ischemia. Partial empty sella. Mild atheromatous calcification of the bilateral carotid siphons. Globes and orbital contents image normally. Extracranial soft tissues demonstrate innumerable dermal calcifications. No soft tissue swelling noted. There is near complete opacification of the right maxillary sinus with frothy central secretions, moderate polypoid mucosal thickening left maxillary sinus, and scattered ethmoid sinus mucosal thickening. Findings could represent acute sinusitis in the appropriate clinical setting. Mastoids and tympanic cavities are normally aerated. No suspicious bony abnormalities. There are likely old nasal bone fractures. No acute fractures evident. Degenerative changes in the left greater than right TM joints. CT/CT head/brain wo IV con IMPRESSION: 1. No acute intracranial abnormalities. No acute posttraumatic findings. 2. Chronic age-related findings as discussed. 3. Bilateral maxillary and ethmoid sinus disease with air-fluid levels and near complete opacification of the right maxillary sinus. Findings could represent acute sinusitis in the appropriate clinical setting. Electronically signed by: Ton Russ MD 10/17/2024 02:55 PM [facility]
[2024-10-17 12:45] VITALS: BP 146/80; PULSE 73; O2SAT 95
[2024-10-17 12:49] VITALS: BP 134/76; PULSE 76; RESP 19; TEMP 36.6; O2SAT 96; BMI 28.1
--- NOTE | 2024-10-17 14:06 | ED_ITS ---
HPI - General Adult General Chief complaint: Extremity Injury, Lower Stated complaint: BILAT KNEE AND HIP PAIN,-INJURY PER EMS Time Seen by Provider: 10/17/24 12:45 Source: patient and EMS Mode of arrival: EMS Limitations: altered mental status History of Present Illness ED Provider: COMPA Simmons HPI narrative: This is a 84-year-old male history of abdominal aortic aneurysm without rupture, major neurocognitive disorder, confusion, presenting from halfway facility according to EMS nursing facility noted that patient was having a limp yesterday favoring his left side they were concerned that maybe he had right knee, hip pain. Patient denies any pain at present in at rest. He reports at times his knees, hips and ankles hurt. He is not sure exactly why he is here. Patient a very poor historian. He does mention he thinks he fell a few weeks ago. Unclear if there was head strike. Patient does not know if he is on a blood thinner however upon med review it appears as though he is not on a blood thinner however this may not be accurate. Review of systems limited as patient is Neuro cognitively impaired. Related Data Home Medications ?Medication ?Instructions ?Recorded ?Confirmed cholecalciferol (vitamin D3) 25 25 mcg PO DAILY 10/17/24 10/17/24 mcg (1,000 unit) tablet (Vitamin D3) cyanocobalamin (vitamin B-12) 500 500 mcg PO MOWEFR 10/17/24 10/17/24 mcg tablet (Vitamin B-12) nystatin 100,000 unit/gram topical 1 appl topical BID 10/17/24 10/17/24 cream quetiapine 25 mg tablet 25 mg PO BEDTIME 10/17/24 10/17/24 Previous Rx's ?Medication ?Instructions ?Recorded amlodipine 10 mg tablet 10 mg PO DAILY #30 tabs 07/11/23 hydrochlorothiazide 25 mg tablet 25 mg PO DAILY #30 tabs 07/11/23 losartan 50 mg tablet 50 mg PO BEDTIME #30 tabs 07/11/23 quetiapine 200 mg tablet 200 mg PO BEDTIME #30 tabs 07/11/23 quetiapine 50 mg tablet 50 mg PO DAILY #30 tabs 07/11/23 rivastigmine tartrate 1.5 mg 1.5 mg PO BID #60 caps 07/11/23 capsule trazodone 100 mg tablet 100 mg PO BEDTIME #30 tabs 07/11/23 Allergies Allergy/AdvReac Type Severity Reaction Status Date / Time tramadol AdvReac Unknown Severe Verified 10/17/24 12:54 Constipation Review of Systems 2 Review of Systems: Yes all other systems are reviewed and are negative [facility] Past Medical History Attestation statement: The following information was validated with the patient. Source: old records reviewed and nursing notes reviewed Medical History H/O urinary retention Renal cell carcinoma of left kidney Malignant neoplasm of left kidney Right inguinal hernia Left inguinal hernia Renal mass Surgical History History of surgery Social History Social History Unable to assess alcohol history related to: Unable to respond Alcohol intake: never Patient Tobacco Use Status: Never used Tobacco Advance Directives: Yes Advance Directives on File: Yes Advance Directives Date on File: 07/13/23 Do you have a plan to hurt others: No Plan service: Yes Sexual orientation: Straight/Heterosexual Cognitive needs: No Hearing needs: No Vision needs: Yes Physical Exam ED Vital Signs: Vital Signs - 24 hr 10/17/24 12:49 10/17/24 14:33 10/17/24 16:16 Temperature 98 F 98.1 F Pulse Rate 76 72 72 Respiratory Rate 19 18 Blood Pressure 134/76 133/73 133/73 Pulse Oximetry 96 97 97 Oxygen Delivery Method Room Air Room Air 10/17/24 19:57 10/17/24 21:44 10/18/24 06:00 Temperature 98.1 F 97.6 F Pulse Rate 67 70 Respiratory Rate 14 18 Blood Pressure 131/64 131/64 129/65 Pulse Oximetry 94 94 Oxygen Delivery Method Room Air Room Air BMI result Body Mass Index 28.1 Vital signs stable Appearance: Alert.? Oriented X1 to person.? No acute distress.? Head: Normocephalic, atraumatic, no step-offs or deformities Eyes: Pupils equal, round and reactive to light.? Neck: Normal inspection.? Neck supple.? CVS: Normal heart rate and rhythm.? Pulses normal.? Respiratory: No respiratory distress.? Breath sounds normal.? Abdomen: Soft and nontender.? Skin: Skin warm and dry.? Normal skin color.? Normal skin turgor.? Extremities: No lower extremity edema.? No calf ttp. Global weakness. 2+ dorsalis pedis, anterior tibialis and posterior tibialis pulses equal bilateral. Mild discomfort with palpation of right lateral hip. Neuro: Oriented X 1 to person.? No motor deficit.? No sensory deficit. CN 2-12 intac Course Course Course Narrative: 10/18/24 08:35am physician observation continued, no overnight events reported by nursing. CM following for disposition. Vital signs stable. Reevaluation(s) Reevaluation #1: DVT study with no acute findings. Left knee with no acute fracture dislocation. Suprapatellar joint effusion. Moderate tricompartmental arthritis with chondrocalcinosis. Also concerned for femoral acetabular impingement that could be contributing to pain. Time: 14:13 Reevaluation #2: Patient's CT head no acute intracranial abnormalities. No posttraumatic findings. Chronic age relating findings noted however no acute findings. Bilateral maxillary and ethmoid sinus disease with air-fluid levels patient not complaining of respiratory or sinus like symptoms. C and T cervical spine with no evidence of acute cervical spine fracture injury. Moderate degenerative spondylosis. Ancillary findings as discussed. Urine without infection. CBC unremarkable normocytic anemia at baseline. Chemistry no acute findings eating intervention chronically elevated BUN. Mild elevation in transaminases no abdominal discomfort on exam. Normal troponin EKG nonischemic unlikely ACS. I did speak to the family further and there have not been any falls or trauma. Patient is usually ambulatory however not able to ambulate due to pain. Unsure he will be able to return to his facility. Will involve case management for possible placement into rehab. Time: 15:18 Reevaluation #3: At this time patient will be placed into physician observation to allow more time for case management and physical therapy will likely require short-term rehab. Medications Administered Generic Name Dose Route Start Last Admin Trade Name Freq PRN Reason Stop Dose Admin Cyanocobalamin 500 mcg 10/17/24 20:30 10/17/24 21:42 Cyanocobalamin (Vitamin B-12) 500 Mcg Tablet PO 500 mcg MOWEFR DILIP Administration Losartan Potassium 50 mg 10/17/24 21:00 10/17/24 21:44 Losartan Potassium 50 Mg Tablet PO 50 mg BEDTIME DILIP Administration Protocol Nystatin 1 appl 10/17/24 21:00 10/17/24 22:00 Nystatin Cream 15 Gm Tube TOPICAL Not Given BID DILIP Protocol Quetiapine Fumarate 25 mg 10/17/24 21:00 10/17/24 21:43 Quetiapine Fumarate 25 Mg Tablet PO 25 mg BEDTIME DILIP Administration Quetiapine Fumarate 200 mg 10/17/24 21:00 10/17/24 21:43 Quetiapine Fumarate 200 Mg Tablet PO 200 mg BEDTIME DILIP Administration Rivastigmine Tartrate 1.5 mg 10/17/24 21:00 10/17/24 22:00 Rivastigmine Tartrate 1.5 Mg Capsule PO 1.5 mg BID DILIP Administration Trazodone HCl 100 mg 10/17/24 21:00 10/17/24 21:43 Trazodone Hcl 100 Mg Tablet PO 100 mg BEDTIME DILIP Administration Discontinued Medications Generic Name Dose Route Start Last Admin Trade Name Freq PRN Reason Stop Dose Admin Acetaminophen 975 mg 10/17/24 15:19 10/17/24 15:23 Acetaminophen 325 Mg Tablet PO 10/17/24 15:20 975 mg ONCE ONE Administration Medical Decision Making Medical Decision Making [facility] Narrative: 1340 84-year-old male pleasantly confused presents with pain to his lower extremities he is a poor historian and can not tell me much of history here. According to EMS he was noted to have a limp yesterday favoring his left side. He denies pain at this time while he is sitting. At some point patient did report he fell unclear if head strike or not. Physical exam patient oriented x1. Full range of motion to hips, knees, ankles. Palpable pulses. History and physical exam concerning for arthritis. Unlikely arterial or venous occlusion. No signs of neurovascular compromise acute threat to limb. No signs of trauma to head, neck, chest, abdomen or pelvis. Plan labs, urine, imaging Differential Diagnosis Differential Diagnoses: The differential diagnosis associated with the presentation includes (History and physical exam concerning for arthritis. Unlikely arterial or venous occlusion. No signs of neurovascular compromise acute threat to limb. No signs of trauma to head, neck, chest, abdomen or pelvis.) Admission/Observation Consideration of admission/observation: Escalation of care including admission/observation considered Lab Data [facility] Lab Attestation statement: I reviewed the patient's lab results. 10/17/24 14:03 10/17/24 14:03 Labs: Lab Results 10/17/24 10/17/24 10/17/24 Range/Units 14:03 14:28 15:40 WBC 7.0 (4.8-10.8) X10*3/uL RBC 4.14 L (4.60-5.80) X10*6/uL Hgb 11.7 L (14.0-18.0) g/dl Hct 33.7 L (42.0-52.0) % MCV 81.4 (80.0-98.0) fL MCH 28.3 (27.0-33.0) pg MCHC 34.7 (31.0-36.0) g/dl RDW 13.5 (11.0-16.0) % Plt Count 159 L D (160-400) X10*3/uL MPV 9.2 L (9.4-12.4) fL Immature Gran % (Auto) 0.6 H (0.0-0.4) % Neut % (Auto) 66.9 (45-73) % Lymph % (Auto) 20.3 (20-40) % Lamb % (Auto) 11.0 (2-11) % Eos % (Auto) 1.1 (0-4) % Baso % (Auto) 0.1 (0-2) % Lymph # (Auto) 1.4 (1.2-4.9) X10*3/uL Lamb # (Auto) 0.8 (0.1-1.2) X10*3/uL Eos # (Auto) 0.1 (0.0-0.4) X10*3/uL Baso # (Auto) 0.0 (0.0-0.2) X10*3/uL Abs Immat Gran (auto) 0.04 H (0.00-0.03) X10*3/uL Absolute Neuts (auto) 4.7 (2.0-8.3) x10*3/uL Absolute Nucleated RBC 0.000 (0.0-0.012) X10*3/uL Nucleated RBC % (auto) 0.0 (0.0-0.2) /100WBC Sodium 140 (135-145) mmol/L Potassium 3.6 (3.3-5.1) mmol/L Chloride 107 (96-108) mmol/L Carbon Dioxide 29 (22-29) mmol/L Anion Gap 8 L (12-20) BUN 29 H (9-16) mg/dL Creatinine 1.10 (0.5-1.4) mg/dL Estim Creat Clear Calc 55.3 Estimated GFR > 60 Random Glucose 136 H (60-115) mg/dL Calcium 8.5 D (8.4-10.2) mg/dL Total Bilirubin 0.6 (0.0-1.0) mg/dL AST 52 H (5-37) U/L ALT 47 H (0-40) U/L Alkaline Phosphatase 58 (39-117) U/L Troponin I High Sens 4.5 (<3.5-35.0) ng/L Total Protein 6.0 L (6.5-8.0) g/dL Albumin 3.6 (3.5-5.0) g/dL Urine Color Yellow Urine Appearance Clear Urine pH 6.0 (5.0-9.0) Ur Specific [place] 1.020 (1.005-1.025) Urine Protein Trace (Neg-Trace) mg/dL Urine Glucose (UA) Negative (Negative) mg/dL Urine Ketones Negative (Negative) mg/dL Urine Blood Negative (Negative) Urine Nitrite Negative (Negative) Ur Leukocyte Esterase Negative (Negative) COVID-19 (FRANCES) Negative (Negative) COVID-19 Clin Com See Note Independent Interpretation I performed an independent interpretation of an: EKG, Plain X-Ray (XR/XR knee LT 2V IMPRESSION: 1. No fracture or dislocation. 2. Suprapatellar joint effusion. 3. 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 No acute intracranial abnormalities. No acute posttraumatic findings. 2. Chronic age- related findings as discussed. 3. Bilateral maxillary and ethmoid sinus disease with air-fluid levels and near complete opacification of the right maxillary sinus. Findings) Radiology Impression Discussion of test interpretation with radiology: I have reviewed the radiologist's reading. Discharge Plan Discharge Clinical Impression: Acute pain of right hip, Femoroacetabular impingement of right hip, OA (osteoarthritis) of hip, Osteoarthritis of knee Patient Disposition: Still a Patient Prescriptions: No Action quetiapine 25 mg Tablet 25 mg PO BEDTIME Rx Instructions: TOTAL 225MG AT BEDTIME cyanocobalamin (vitamin B-12) [Vitamin B-12] 500 mcg Tablet 500 mcg PO MOWEFR nystatin 100,000 unit/gram Cream 1 appl TOPICAL BID Rx Instructions: APPLY LIBERALLY TO SKIN TWICE A DAY TO INGUINAL AREAS cholecalciferol (vitamin D3) [Vitamin D3] 25 mcg (1,000 unit) Tablet 25 mcg PO DAILY losartan 50 mg Tablet 50 mg PO BEDTIME Qty: 30 0RF Protocol: Hold for SBP< HOLD for SBP < : 90 rivastigmine tartrate 1.5 mg Capsule 1.5 mg PO BID Qty: 60 0RF quetiapine 200 mg Tablet 200 mg PO BEDTIME Qty: 30 0RF Rx Instructions: TOTAL 225MG AT BEDTIME trazodone 100 mg Tablet 100 mg PO BEDTIME Qty: 30 0RF amlodipine 10 mg Tablet 10 mg PO DAILY Qty: 30 0RF Protocol: Hold for SBP< HOLD for SBP < : 90 hydrochlorothiazide 25 mg Tablet 25 mg PO DAILY Qty: 30 0RF Protocol: Hold for SBP< HOLD for SBP < : 90 quetiapine 50 mg Tablet 50 mg PO DAILY Qty: 30 0RF Print Language: Croatian
--- NOTE | 2024-10-17 14:11 | ECG_ITS ---
Test Reason : FALL Blood Pressure : */* mmHG Vent. Rate : 68 BPM Atrial Rate : 68 BPM P-R Int : 184 ms QRS Dur : 108 ms QT Int : 414 ms P-R-T Axes : 29 28 31 degrees QTcB Int : 440 ms Normal sinus rhythm Cannot rule out Anterior infarct , age undetermined Abnormal ECG When compared with ECG of 16-May-2023 17:52, No significant change was found Referred By: Erick Simmons Electronically Signed By: GERMAINE KING
[2024-10-17 14:20] LABS: MANUAL DIFF FLAG NO
[2024-10-17 14:21] LABS: Basophils Percent Auto 0.1 % (0-2); Eosinophils Absolute Auto 0.1 X10*3/uL (0.0-0.4); Eosinophils Percent Auto 1.1 % (0-4); Hematocrit 33.7 % (42.0-52.0); Hemoglobin 11.7 g/dl (14.0-18.0); Imm Gran Abs Auto 0.04 X10*3/uL (0.00-0.03); Imm Gran Pct Auto 0.6 % (0.0-0.4); Lymphocytes Absolute Auto 1.4 X10*3/uL (1.2-4.9); Lymphocytes Percent Auto 20.3 % (20-40); Mean Corpuscular HGB Conc 34.7 g/dl (31.0-36.0); Mean Corpuscular Hemoglobin 28.3 pg (27.0-33.0); Mean Corpuscular Volume 81.4 fL (80.0-98.0); Mean Platelet Volume 9.2 fL (9.4-12.4); Monocytes Absolute Auto 0.8 X10*3/uL (0.1-1.2); Neutrophils Absolute Auto 4.7 x10*3/uL (2.0-8.3); Neutrophils Percent Auto 66.9 % (45-73); Platelet Count 159 X10*3/uL (160-400); Red Blood Count 4.14 X10*6/uL (4.60-5.80); Red Cell Distribution Width 13.5 % (11.0-16.0)
[2024-10-17 14:33] VITALS: BP 133/73; PULSE 72; RESP 18; TEMP 36.7; O2SAT 97
[2024-10-17 14:36] LABS: Appearance Urine Clear; Color Urine Yellow; Glucose Urine UA Negative (Negative); Leukocyte Esterase Urine Negative (Negative); Nitrite Urine Negative (Negative); Urine Blood Negative (Negative); Urine Ketones Negative (Negative); Urine Protein Trace mg/dL (Neg-Trace)
[2024-10-17 14:37] LABS: Alanine Aminotransferase 47 U/L (0-40); Albumin Level 3.6 g/dL (3.5-5.0); Alkaline Phosphatase 58 U/L (39-117); Anion Gap 8 (12-20); Aspartate Amino Transferase 52 U/L (5-37); Bilirubin Total 0.6 mg/dL (0.0-1.0); Blood Urea Nitrogen 29 mg/dL (9-16); Calcium 8.5 mg/dL (8.4-10.2); Carbon Dioxide 29 mmol/L (22-29); Chloride 107 mmol/L (96-108); Creatinine Clr Calc Pharmacy 55.3; Estimated Glomerular Filt Rate > 60; Glucose Random 136 mg/dL (60-115); Potassium 3.6 mmol/L (3.3-5.1); Sodium 140 mmol/L (135-145)
[2024-10-17 14:44] LABS: Troponin-I High Sensitivity 4.5 ng/L (<3.5-35.0)
[2024-10-17] MEDS: Acetaminophen 325 MG TABLET 975 MG PO (15:23)
--- NOTE | 2024-10-17 15:49 | MHC.CM.ED ---
Received case management consult from Opal CHATMAN. Patient came to the ER d/t leg pain from [facility]. Work up essentially negative. Physical therapy eval ordered and pending. Met with patient, Eddie, and , Suri, in regards to discharge planning. Patient has been living at [facility] since d/c from [facility] 07/2023. Patient has been doing very well in regards to his dementia since at [facility]. Patient is typically very active except today had difficulty ambulating and was trasnported to the ER. PCP verified. Copy of HCP verified to be on file. [facility] is 1st choice if rehab is needed. Referral will be made to [facility]. Continue to monitor for d/c needs.
[2024-10-17 15:58] LABS: COVID-19 Test Negative (Negative); IDNOW Serial# 6674DD1D
[2024-10-17 16:16] VITALS: BP 133/73; PULSE 72; O2SAT 97
--- NOTE | 2024-10-17 19:26 | PC.NURSE ---
this rn assumed care of pt @ 1900. pt placed in hospital bed for comfort family at bedside pt required 1 assist for stand and pivot into bed
--- NOTE | 2024-10-17 19:27 | PC.NURSE ---
this rn contacted pharmacy regarding med rec status for pt. per pharmacy staff med rec still pending at this time
--- NOTE | 2024-10-17 19:45 | PHA.MEDREC ---
Pharmacy Consult ? Medication Reconciliation Pharmacy has completed the medication reconciliation.
[2024-10-17 19:57] VITALS: BP 131/64; PULSE 67; RESP 14; TEMP 36.7; O2SAT 94
--- NOTE | 2024-10-17 19:58 | MHC.EDTECH ---
This tech took over care of pt at 1900,pt placed in hospital bed for comfort,vitals taken,pt appears comfortable,patient ate 50% of dinner,drank 240MLS,call maravilla in reach,bed alarm on for safety
--- NOTE | 2024-10-17 20:25 | MHC.EDTECH ---
Patient urinated 300mls in urinal, bed alarm on for safety,belongings list completed,copy placed in chart
[2024-10-17] MEDS: Cyanocobalamin (Vitamin B-12) 500 MCG TABLET PO (21:42)
[2024-10-17] MEDS: traZODone HCL 100 MG TABLET PO (21:43)
[2024-10-17] MEDS: QUEtiapine Fumarate 200 MG TABLET PO (21:43)
[2024-10-17] MEDS: QUEtiapine Fumarate 25 MG TABLET PO (21:43)
[2024-10-17 21:44] VITALS: BP 131/64
[2024-10-17] MEDS: Losartan Potassium 50 MG TABLET PO (21:44)
[2024-10-17] MEDS: Rivastigmine Tartrate 1.5 MG CAPSULE PO (22:00)
--- NOTE | 2024-10-17 22:03 | PC.NURSE ---
pt medicated according to everardo pt repositioned back to bed with bed alarm in place lights dimmed to promote sleep
--- NOTE | 2024-10-18 00:28 | PC.NURSE ---
pt sleeping upon this rn giving rn to rn report prior to transport to ed overflow pt transported by bennie perez rn
--- NOTE | 2024-10-18 03:35 | MHC.EDTECH ---
This tech took over care of pt at 0300AM,patient is sleeping,rep.rate WNL,bed alarm on for safety
--- NOTE | 2024-10-18 05:19 | PC.NURSE ---
Assumed care at 2300. Patient slept throughout night , safety precautions in place . Call maravilla within reach.
[2024-10-18 06:00] VITALS: BP 129/65; PULSE 70; RESP 18; TEMP 36.4; O2SAT 94
--- NOTE | 2024-10-18 06:29 | MHC.EDTECH ---
Rounds and vitals completed,patient stood up with t/w urinated 300MLS in urinal,patient is back in bed,bed alarm on for safety,call maravilla in reach
--- NOTE | 2024-10-18 07:16 | PC.NURSE ---
assumed care of this patient. 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
[2024-10-18] MEDS: Rivastigmine Tartrate 1.5 MG CAPSULE PO ×2 (09:05→20:35)
[2024-10-18 09:07] VITALS: BP 122/69
[2024-10-18] MEDS: hydroCHLOROthiazide 25 MG TABLET PO (09:07)
[2024-10-18 09:08] VITALS: BP 122/66
[2024-10-18] MEDS: Cholecalciferol (Vitamin D3) 25 MCG TABLET PO (09:08)
[2024-10-18] MEDS: amLODIPine Besylate 10 MG TABLET PO (09:08)
[2024-10-18] MEDS: QUEtiapine Fumarate 50 MG TABLET PO (09:08)
[2024-10-18] MEDS: Nystatin Cream 15 GM TUBE 1 APPL TOPICAL (09:08)
--- NOTE | 2024-10-18 11:40 | MHC.CM.ED ---
Met w/Eddie and spouse, Laura. Reviewed all 3 acute rehab declines for admission: discussed STR options vs home w/VNA. Spouse incredibly anxious and unsure of d/c plan proceedings - much time spend reviewing all options to which both pt and Laura are opting for a return to [facility] with services: CM ambulated pt 3x in unit w/wheeled walker: pt followed directions and did very well - states right hip feels stiff but better with movement. Pt accepted to [facility] for RN and PT visits: pt has a walker at [facility], spouse will stay with him overnight 2-3 times to assist. Call placed to [facility] to alert them of pt's return on 10/19 via [facility] for 10am. ED OF RN and PA aware of d/c plan
--- NOTE | 2024-10-18 13:16 | PC.NURSE ---
patient complaining of knee discomfort. was at bedside encouraging alot of walking this morning, Ice pack applied to right knee and leg elevated. Patient comfortably watching TV sitting in recliner.
[2024-10-18 14:00] VITALS: BP 121/57; PULSE 76; RESP 18; TEMP 36.6; O2SAT 96
--- NOTE | 2024-10-18 18:47 | PC.NURSE ---
patient in need of alot of que's for daily activites. frequently at bedside through the day to help and patient independent with some tasks but needs alot of assitance. Right knee discomfort throughout day with icing and elevation in recliner.
[2024-10-18 20:23] VITALS: BP 136/69; PULSE 74; RESP 16; TEMP 38; O2SAT 96
[2024-10-18 20:35] VITALS: BP 136/69
[2024-10-18] MEDS: traZODone HCL 100 MG TABLET PO (20:35)
[2024-10-18] MEDS: Losartan Potassium 50 MG TABLET PO (20:35)
[2024-10-18] MEDS: QUEtiapine Fumarate 25 MG TABLET PO (20:36)
[2024-10-18] MEDS: QUEtiapine Fumarate 200 MG TABLET PO (20:48)
--- NOTE | 2024-10-18 23:30 | PC.NURSE ---
Patient would not allow nurse to apply nystatin cream.
--- NOTE | 2024-10-19 00:33 | PC.NURSE ---
Patient up to side of bide to utilize urinal. Heavy 1 assist.
[2024-10-19 05:58] VITALS: BP 127/62; PULSE 71; RESP 18; TEMP 37; O2SAT 94
[2024-10-19] MEDS: QUEtiapine Fumarate 50 MG TABLET PO (08:19)
[2024-10-19] MEDS: Cholecalciferol (Vitamin D3) 25 MCG TABLET PO (08:19)
[2024-10-19] MEDS: Rivastigmine Tartrate 1.5 MG CAPSULE PO (08:19)
[2024-10-19] MEDS: hydroCHLOROthiazide 25 MG TABLET PO (08:19)
[2024-10-19] MEDS: amLODIPine Besylate 10 MG TABLET PO (08:20)
[2024-10-19] MEDS: Nystatin Cream 15 GM TUBE 1 APPL TOPICAL (08:50)
[2024-10-19 10:10] VITALS: BP 127/62; PULSE 71; RESP 18; TEMP 37; O2SAT 94
== END 2024-10-19 10:24 | disposition other institution (70) ==
PROVIDERS: Physician Assistant; Emergency Provider Emergency Medicine; PCP Internal Medicine
DX: M25.551 Pain in right hip (principal); M25.851 Other specified joint disorders, right hip; M16.11 Unilateral primary osteoarthritis, right hip; M25.562 Pain in left knee; M25.561 Pain in right knee; R94.31 Abnormal electrocardiogram [ECG] [EKG]; R26.2 Difficulty in walking, not elsewhere classified; R60.0 Localized edema; M54.2 Cervicalgia; R51.9 Headache, unspecified; Z79.899 Other long term (current) drug therapy; Z11.52 Encounter for screening for COVID-19
CPT/HCPCS: 36415; 70450; 72125; 72170; 73560; 80053; 81003; 84484; 85025; 87635; 93005; 93971; 97162; 99285

== ENCOUNTER → 2024-10-17 12:46 | Outpatient (BNV) | payer MEDICARE, OTHER, SELFPAY | PROVIDERS: Emergency Provider Emergency Medicine; PCP Internal Medicine; Visit Provider Radiology Diagnostic Radiology | DX: M54.2 Cervicalgia (principal); M79.661 Pain in right lower leg; M17.0 Bilateral primary osteoarthritis of knee; M25.561 Pain in right knee; M25.562 Pain in left knee; J01.00 Acute maxillary sinusitis, unspecified | CPT/HCPCS: 70450; 72125; 72170; 73560; 93971 ==

== ENCOUNTER → 2024-10-17 14:11 | Outpatient (BNV) | payer MEDICARE, OTHER, SELFPAY | PROVIDERS: Emergency Provider Emergency Medicine; PCP Internal Medicine; Visit Provider Internal Medicine | DX: R94.31 Abnormal electrocardiogram [ECG] [EKG] (principal) | CPT/HCPCS: 93010 ==

== ENCOUNTER 2025-05-30 10:39 | Emergency (ER) | payer MEDICARE, OTHER, SELFPAY ==
--- NOTE | ~2025-05-30 | US_ITS ---
CLINICAL HISTORY: pain VENOUS DUPLEX ULTRASOUND LEFT LOWER EXTREMITY Comparison: None provided Findings: The visualized deep veins are fully compressible with normal Doppler color flow and spectral tracings. No popliteal cyst. There is a knee effusion extending laterally that measures 5.7 x 1.6 x 5.3 cm (Length x Height x Width). IMPRESSION: 1. Negative for left lower extremity deep vein thrombosis. 2. Small knee effusion. This document has been electronically signed by: Michelle Cuba DO on 05/30/2025 14:19:04
--- NOTE | ~2025-05-30 | XR_ITS ---
CLINICAL HISTORY: pain 4 view left knee Comparison: CR/WY/SR - XR KNEE 1-2 VIEWS LEFT - 10/17/24 13:14 EST Findings: Bones intact. No dislocations. Moderate narrowing and degenerative spurring in the medial joint compartment and patellofemoral joint. Mild narrowing of the lateral joint compartment. A suprapatellar joint effusion measures 5.6 cm in craniocaudal dimension by 1.0 cm in AP diameter. No radiopaque foreign body. Prominent arterial calcifications. Meniscal calcifications are again seen. IMPRESSION: 1. Small joint effusion. 2. No acute fracture or dislocation. 3. Moderate arthritic changes. This document has been electronically signed by: Michelle Cuba DO on 05/30/2025 13:24:51
[2025-05-30 10:55] VITALS: BP 149/79; BP 150/64; PULSE 70; PULSE 75; RESP 18; TEMP 37; O2SAT 96; O2SAT 97; BMI 31.0
--- NOTE | 2025-05-30 10:59 | PC.NURSE ---
patient awake/alert to self only, rr equal/non labored, lungs clear, when asking the patient what brought him in he isnt able to verbalize well the problem. This nurse asked him what leg hurt and his response was Uh huh when asked how tall he was he responded 80. Presently is unable to verbalize pain, according to ems providers it is his LLE and he is unable to ambulate where hes independently ambulating at baseline. call maravilla within reach, plan of care ongoing
[2025-05-30 12:00] VITALS: BP 145/74; PULSE 67; RESP 15; TEMP 36.7; O2SAT 99
--- NOTE | 2025-05-30 12:01 | ED.GENADULT ---
HPI - General Adult General Chief complaint: Extremity Injury, Lower Stated complaint: WEAK,L KNEE PAIN,FROM SNF PER EMS Time Seen by Provider: 05/30/25 11:01 Source: patient, family (), RN notes reviewed and old records reviewed Mode of arrival: EMS Limitations: other (advanced dementia) History of Present Illness ED Provider: Henrik HPI narrative: 84-year-old male past medical history significant for severe Alzheimer's dementia, renal cell carcinoma, previous AAA presenting for evaluation of left knee pain. The patient is presenting from a locked dementia unit called [facility] His is bedside who is very involved with his care. Apparently starting around 5:00 p.m. last night the patient has had difficulty walking due to pain in his left knee. He does not seem more confused or weaker than usual but he is typically quite ambulatory and has required a 2 person assist since last night. The patient did nearly fall but caught himself on the railing per his last night He is able to stand on his own. Typically he is able to walk around unassisted that has had difficulty even with a walker since last night No fevers or chills. Denies any respiratory symptoms Related Data Home Medications ?Medication ?Instructions ?Recorded ?Confirmed cholecalciferol (vitamin D3) 25 25 mcg PO DAILY 10/17/24 05/30/25 mcg (1,000 unit) tablet (Vitamin D3) cyanocobalamin (vitamin B-12) 500 500 mcg PO MOWEFR@0900 10/17/24 05/30/25 mcg tablet (Vitamin B-12) nystatin 100,000 unit/gram topical 1 appl topical BID 10/17/24 05/30/25 cream ketoconazole 2 % topical cream 1 appl topical DAILY 05/30/25 05/30/25 losartan 50 mg tablet 50 mg PO DAILY 05/30/25 05/30/25 quetiapine 200 mg tablet 250 mg PO BEDTIME 05/30/25 05/30/25 quetiapine 50 mg tablet 50 mg PO DAILY 05/30/25 05/30/25 Previous Rx's ?Medication ?Instructions ?Recorded amlodipine 10 mg tablet 10 mg PO DAILY #30 tabs 07/11/23 hydrochlorothiazide 25 mg tablet 25 mg PO DAILY #30 tabs 07/11/23 rivastigmine tartrate 1.5 mg 1.5 mg PO BID #60 caps 07/11/23 capsule trazodone 100 mg tablet 100 mg PO BEDTIME #30 tabs 07/11/23 Allergies Allergy/AdvReac Type Severity Reaction Status Date / Time tramadol AdvReac Unknown Severe Verified 05/30/25 10:58 Constipation Review of Systems Constitutional: Constitutional: Denies body ache(s), Denies chills, Denies fever(s), Denies frequent falls and Denies headache(s) ENT: Denies headache(s) Cardiovascular: Cardiovascular: Denies chest pain and Denies dyspnea on exertion Respiratory: Respiratory: Denies cough and Denies dyspnea on exertion Gastrointestinal: Gastrointestinal: Denies abdominal pain Musculoskeletal: Musculoskeletal: Denies back pain, Reports arthralgias, Reports joint swelling, Reports limited range of motion, Denies muscle weakness, Denies numbness and Reports stiffness Integumentary/Breasts: Skin/Breast: Denies rash Neurologic: Denies frequent falls, Denies headache(s) and Denies numbness Psychiatric: Psychiatric: Denies anxiety PMF Past Medical History Medical History H/O urinary retention Renal cell carcinoma of left kidney Malignant neoplasm of left kidney Right inguinal hernia Left inguinal hernia Renal mass Surgical History (Reviewed 07/22/24 @ 11: by ELISABETH Haynes) History of surgery Social History Social History Unable to assess alcohol history related to: Unable to respond Alcohol intake: never Patient Tobacco Use Status: Never used Tobacco Advance Directives Date on File: 07/13/23 service: Yes Sexual orientation: Straight/Heterosexual Cognitive needs: No Hearing needs: No Vision needs: Yes Physical Exam ED Vital Signs: Vital Signs - 24 hr 05/30/25 10:55 05/30/25 12:00 05/30/25 20:00 Temperature 98.6 F 98.0 F 96.8 F Pulse Rate 75 67 83 Respiratory Rate 18 15 18 Blood Pressure 150/64 H 145/74 H 124/71 Pulse Oximetry 96 99 96 Oxygen Delivery Method Room Air Room Air Room Air 05/30/25 22:00 05/31/25 05:27 Temperature 97.4 F 99.0 F Pulse Rate 65 88 Respiratory Rate 18 16 Blood Pressure 120/60 163/77 H Pulse Oximetry 97 95 Oxygen Delivery Method Room Air Room Air BMI result Body Mass Index 31.0 Const General: healthy appearing, comfortable, no acute distress, alert and awake Nutritional Appearance: well nourished [facility] Head: Yes normocephalic and Yes atraumatic Eyes Eyelids: Yes eyelids normal Conjunctivae: conjunctivae normal Sclerae: sclerae normal Corneas: corneas normal Pupils: Equal, round and reactive pupils present EOM: EOMs intact bilaterally Neck Neck: Yes full ROM Resp Effort & Inspection: normal respiratory effort, able to speak in complete sentences and not labored Skin General skin exam: elasticity normal Neuro Cranial nerves: Yes Equal, round and reactive pupils present and Yes Bilaterally intact EOM present Extrem Other: Patient does have some mild left suprapatellar edema and likely effusion. There was no significant erythema, no wounds to the area. No calf tenderness. No tenderness to the left hip or ankle. There was no significant tenderness on palpation of the left knee. However he has severe pain to the left knee with passive flexion of the left knee. Negative valgus or varus strain Course Reevaluation(s) Reevaluation #1: Patient's workup is largely unremarkable. He does have a small joint effusion of the left knee. However he actually did quite well with physical therapy. The patient's is concerned that he may follow up he goes back to his dementia unit tonight. Plan to keep the patient in the hospital overnight. The will be able to go to his dementia unit tomorrow and stay with an overnight. Physician observation starts now Time: 15:32 Reevaluation #2: 130am Getting a call from overflow, the patient is coming restless trying to get out of bed. He already received 250 mg of Seroquel in 100 mg of trazodone, we will try 20 mg of Zyprexa Reevaluation #3: At this time physician observation the patient will discharge to assisted living facility with VNA for physical therapy via BLS at 10:00. Patient agreeable to plan. Case management assisted with disposition. Time: 08:47 Medications Administered Discontinued Medications Generic Name Dose Route Start Last Admin Trade Name Freq PRN Reason Stop Dose Admin Amlodipine Besylate 10 mg 05/31/25 09:00 05/31/25 09:24 Amlodipine Besylate 10 Mg Tablet PO 10 mg DAILY DILIP Administration Protocol Hydrochlorothiazide 25 mg 05/31/25 09:00 05/31/25 09:25 Hydrochlorothiazide 25 Mg Tablet PO 25 mg DAILY DILIP Administration Protocol Losartan Potassium 50 mg 05/31/25 09:00 05/31/25 09:25 Losartan Potassium 50 Mg Tablet PO 50 mg DAILY DILIP Administration Protocol Nystatin 1 appl 05/30/25 21:00 05/31/25 09:25 Nystatin Cream 15 Gm Tube TOPICAL 1 appl BID DILIP Administration Protocol Olanzapine 20 mg 05/31/25 01:29 05/31/25 01:38 Olanzapine 10 Mg Tablet PO 05/31/25 01:30 20 mg ONCE ONE Administration Quetiapine Fumarate 50 mg 05/31/25 09:00 05/31/25 09:25 Quetiapine Fumarate 50 Mg Tablet PO 50 mg DAILY DILIP Administration Quetiapine Fumarate 250 mg 05/30/25 21:00 05/30/25 20:44 Quetiapine Fumarate 100 Mg Tablet PO 250 mg BEDTIME DILIP Administration Quetiapine Fumarate 50 mg 05/30/25 16:53 05/30/25 16:58 Quetiapine Fumarate 50 Mg Tablet PO 05/30/25 16:54 50 mg ONCE ONE Administration Rivastigmine Tartrate 1.5 mg 05/30/25 21:00 05/31/25 09:24 Rivastigmine Tartrate 1.5 Mg Capsule PO 1.5 mg BID DILIP Administration Trazodone HCl 100 mg 05/30/25 21:00 05/30/25 20:44 Trazodone Hcl 100 Mg Tablet PO 100 mg BEDTIME DILIP Administration Vitamin D 25 mcg 05/31/25 09:00 05/31/25 09:25 Cholecalciferol (Vitamin D3) 25 Mcg Tablet PO 25 mcg DAILY DIILP Administration Medical Decision Making Medical Decision Making MDM Narrative: 84-year-old male with medical history significant for advanced dementia presenting for evaluation of left knee pain since last night. The patient's was with him all last night and denies any trauma or falls. He was ambulating well yesterday afternoon but then began to complain of pain in his left knee around dinnertime, 5:00 p.m. last night. On exam, there does appear to be some suprapatellar edema, we will get an x-ray of the left knee to evaluate for fracture. We will get an ultrasound to evaluate for DVT the patient has no calf tenderness. He did tell his that he had pain behind his left knee last night. There was no evidence of infectious process. We will check basic labs. The patient's mental status appears to be at baseline per his , there was no evidence of focal neurologic deficits, we will defer CT imaging of the brain at this time Differential Diagnosis Differential Diagnoses: The differential diagnosis associated with the presentation includes Knee sprain Contusion Suprapatellar bursitis DVT Knee fracture Admission/Observation Consideration of admission/observation: Escalation of care including admission/observation considered Lab Data MDM Lab Attestation statement: I reviewed the patient's lab results. No leukocytosis. The patient has a minor, stable normocytic anemia. Unclear Etiology. But his H&H are actually improved compared to his labs from earlier this year. No significant chemistry abnormalities warranting intervention 05/30/25 12:23 05/30/25 12:23 Labs: Lab Results 05/30/25 05/30/25 Range/Units 12:23 14:13 WBC 8.4 (4.8-10.8) X10*3/uL RBC 4.63 (4.60-5.80) X10*6/uL Hgb 13.4 L (14.0-18.0) g/dl Hct 37.8 L (42.0-52.0) % MCV 81.6 (80.0-98.0) fL MCH 28.9 (27.0-33.0) pg MCHC 35.4 (31.0-36.0) g/dl RDW 13.5 (11.0-16.0) % Plt Count 189 (160-400) X10*3/uL MPV 9.9 (9.4-12.4) fL Immature Gran % (Auto) 0.6 H (0.0-0.4) % Neut % (Auto) 72.3 (45-73) % Lymph % (Auto) 17.2 L (20-40) % [place] % (Auto) 7.1 (2-11) % Eos % (Auto) 2.3 (0-4) % Baso % (Auto) 0.5 (0-2) % Lymph # (Auto) 1.5 (1.2-4.9) X10*3/uL [place] # (Auto) 0.6 (0.1-1.2) X10*3/uL Eos # (Auto) 0.2 (0.0-0.4) X10*3/uL Baso # (Auto) 0.0 (0.0-0.2) X10*3/uL Abs Immat Gran (auto) 0.05 H (0.00-0.03) X10*3/uL Absolute Neuts (auto) 6.1 (2.0-8.3) x10*3/uL Absolute Nucleated RBC 0.000 (0.0-0.012) X10*3/uL Nucleated RBC % (auto) 0.0 (0.0-0.2) /100WBC Sodium 141 (135-145) mmol/L Potassium 4.0 (3.3-5.1) mmol/L Chloride 105 (96-108) mmol/L Carbon Dioxide 26 (22-29) mmol/L Anion Gap 14 (12-20) BUN 23 H (9-16) mg/dL Creatinine 1.27 (0.5-1.4) mg/dL Estim Creat Clear Calc 54.8 Estimated GFR 54 Random Glucose 100 (60-115) mg/dL Calcium 9.1 D (8.4-10.2) mg/dL Total Bilirubin 0.4 (0.0-1.0) mg/dL AST 16 (5-37) U/L ALT 10 (0-40) U/L Alkaline Phosphatase 83 (39-117) U/L Total Protein 6.9 (6.5-8.0) g/dL Albumin 4.4 (3.5-5.0) g/dL COVID-19 (FRANCES) Negative (Negative) COVID-19 Clin Com See Note Radiology Impression Discussion of test interpretation with radiology: I have reviewed the radiologist's reading. Radiologist Impression: Findings: The visualized deep veins are fully compressible with normal Doppler color flow and spectral tracings. No popliteal cyst. There is a knee effusion extending laterally that measures 5.7 x 1.6 x 5.3 cm (Length x Height x Width). IMPRESSION: 1. Negative for left lower extremity deep vein thrombosis. 2. Small knee effusion. This document has been electronically signed by: Michelle Cuba DO on 05/30/2025 14:19:04 Findings: Bones intact. No dislocations. Moderate narrowing and degenerative spurring in the medial joint compartment and patellofemoral joint. Mild narrowing of the lateral joint compartment. A suprapatellar joint effusion measures 5.6 cm in craniocaudal dimension by 1.0 cm in AP diameter. No radiopaque foreign body. Prominent arterial calcifications. Meniscal calcifications are again seen. IMPRESSION: 1. Small joint effusion. 2. No acute fracture or dislocation. 3. Moderate arthritic changes. This document has been electronically signed by: Michelle Cuba DO on 05/30/2025 13:24:51 Tests considered The following testing was considered but not selected: Consider CT scan of the brain but ultimately deferred as the patient has no changes from baseline mental status and no focal neurologic deficits. Discharge Plan Discharge Clinical Impression: Acute pain of left knee, Renal cell carcinoma of left kidney Patient Disposition: Xfer Other Transfer Details: BACK TO [facility] Instructions: Arthralgia (ED) Additional Instructions: Brian appears to have a minor injury to the left knee. There is a small amount of fluid in the knee joint in his likely contributing to his pain There was no blood clot and his blood work is reassuring You may use Tylenol as needed for additional pain. Follow-up with your primary doctor, return for new or worsening symptoms Prescriptions: No Action cyanocobalamin (vitamin B-12) [Vitamin B-12] 500 mcg Tablet 500 mcg PO MOWEFR@0900 nystatin 100,000 unit/gram Cream 1 appl TOPICAL BID Rx Instructions: APPLY LIBERALLY TO SKIN TWICE A DAY TO INGUINAL AREAS cholecalciferol (vitamin D3) [Vitamin D3] 25 mcg (1,000 unit) Tablet 25 mcg PO DAILY rivastigmine tartrate 1.5 mg Capsule 1.5 mg PO BID Qty: 60 0RF trazodone 100 mg Tablet 100 mg PO BEDTIME Qty: 30 0RF amlodipine 10 mg Tablet 10 mg PO DAILY Qty: 30 0RF Protocol: Hold for SBP< HOLD for SBP < : 90 hydrochlorothiazide 25 mg Tablet 25 mg PO DAILY Qty: 30 0RF Protocol: Hold for SBP< HOLD for SBP < : 90 ketoconazole 2 % Cream 1 appl TOPICAL DAILY losartan 50 mg tablet 50 mg PO DAILY Protocol: Hold for SBP< HOLD for SBP < : 90 quetiapine 200 mg tablet 250 mg PO BEDTIME Rx Instructions: TOTAL 225MG AT BEDTIME quetiapine 50 mg tablet 50 mg PO DAILY Referrals: Eboni Tyson MD [Primary Care Provider, Medical] Interventions: ED Discharge Assessment Last Done: 05/31/25 08:57 Discharge Date/Time: 05/31/25 11:05 Print Language: Kinyarwanda
[2025-05-30 12:33] LABS: MANUAL DIFF FLAG NO
[2025-05-30 12:34] LABS: Hematocrit 37.8 % (42.0-52.0); Hemoglobin 13.4 g/dl (14.0-18.0); Imm Gran Abs Auto 0.05 X10*3/uL (0.00-0.03); Imm Gran Pct Auto 0.6 % (0.0-0.4); Lymphocytes Absolute Auto 1.5 X10*3/uL (1.2-4.9); Mean Corpuscular HGB Conc 35.4 g/dl (31.0-36.0); Mean Corpuscular Hemoglobin 28.9 pg (27.0-33.0); Mean Corpuscular Volume 81.6 fL (80.0-98.0); NRBC Abs Auto 0.000 X10*3/uL (0.0-0.012); NRBC Pct Auto 0.0 /100WBC (0.0-0.2); Platelet Count 189 X10*3/uL (160-400); Red Blood Count 4.63 X10*6/uL (4.60-5.80); White Blood Count 8.4 X10*3/uL (4.8-10.8)
[2025-05-30 12:49] LABS: Alanine Aminotransferase 10 U/L (0-40); Albumin Level 4.4 g/dL (3.5-5.0); Alkaline Phosphatase 83 U/L (39-117); Anion Gap 14 (12-20); Aspartate Amino Transferase 16 U/L (5-37); Blood Urea Nitrogen 23 mg/dL (9-16); Calcium 9.1 mg/dL (8.4-10.2); Carbon Dioxide 26 mmol/L (22-29); Chloride 105 mmol/L (96-108); Creatinine Clr Calc Pharmacy 54.8; Estimated Glomerular Filt Rate 54; Potassium 4.0 mmol/L (3.3-5.1); Sodium 141 mmol/L (135-145); Total Protein 6.9 g/dL (6.5-8.0)
--- NOTE | 2025-05-30 14:29 | PC.NURSE ---
physical therapy doing eval at bedside
[2025-05-30 14:44] LABS: COVID-19 Test Negative (Negative); IDNOW Serial# 08D9AD1C
--- NOTE | 2025-05-30 15:15 | PC.NURSE ---
pt ambulated with a walker with coaching to inpt bed, bed alarm applied, continued fall precautions intact. at bedside.
--- NOTE | 2025-05-30 15:16 | PC.NURSE ---
med req med req was faxed to pharmacy, this nurse also called to notify them it was being faxed.
--- NOTE | 2025-05-30 15:31 | MHC.CM.ED ---
Received case management consult from Eduard CHATMAN. Patient came to the ER from [facility] for knee pain and weakness. Work up essentially negative. Physical therapy eval completed. Patient was able stand and ambulate with a walker about 10 feet. Needed cues for safety. Met with patient and , Laura. Patient prefers to be called Eddie . Patient has been a resident of [facility] for 2 years. Patient has advanced dementia. PCP verified. Copy of HCP verified to be on file. Laura does not feel rehab would be beneficial to patient due to advanced dementia. Patient has been active with [facility] in the past for home therapy. Laura requesting referral there. Laura will spend the night with patient at his [facility]. However, she is requesting patient stay overnight so she can safely take care of him overnight tomorrow. Carlton MARSHALL booked for Thursday 05/31 at 10am. Li from [facility] updated about plan for d/c tomorrow. Attempted to reach [facility] for home physical therapy. Waiting for return telephone call to see if they can accept patient. Dary RAMIREZ and Eduard CHATMAN aware. Continue to monitor for d/c needs.
--- NOTE | 2025-05-30 15:35 | PHA.MEDREC ---
Pharmacy Consult ? Medication Reconciliation Pharmacy has completed the medication reconciliation. Completed with list from [facility], verified with claim history
--- NOTE | 2025-05-30 16:58 | PC.NURSE ---
pt very restless, thinks he is seeing his at the nurses station and attempting to get oob to go see her. bed alarm is on, patient safety camera was placed on patient. was concerned earlier about the patient owning and needing his medication. medication for this evening was ordered. additionally a 1x order of seroquel was given due to the patient increased confusion and agitation.
[2025-05-30 20:00] VITALS: BP 124/71; PULSE 83; RESP 18; TEMP 36; O2SAT 96
[2025-05-30 22:00] VITALS: BP 120/60; PULSE 65; RESP 18; TEMP 36.3; O2SAT 97
[2025-05-31 05:27] VITALS: BP 163/77; PULSE 88; RESP 16; TEMP 37.2; O2SAT 95
--- NOTE | 2025-05-31 08:35 | PC.NURSE ---
attempted to contact facility but no answer. left voicemail with this writers name and contact info [place] [facility]
[2025-05-31 08:57] VITALS: BP 162/80; PULSE 88; RESP 17; TEMP 37.2; O2SAT 96
--- NOTE | 2025-05-31 12:23 | MHC.CM.ED ---
Patient was d/c'd back to [facility]. Did not get a response from [facility] about PT at home. Referral broadcasted in [facility] for home PT. Patient's , Laura marinelli.
== END 2025-05-31 11:05 | disposition other institution (70) ==
PROVIDERS: Physician Assistant; Emergency Provider Emergency Medicine; PCP Internal Medicine
DX: M25.562 Pain in left knee (principal); M25.462 Effusion, left knee; R26.2 Difficulty in walking, not elsewhere classified; C64.2 Malignant neoplasm of left kidney, except renal pelvis; R60.0 Localized edema; Z79.899 Other long term (current) drug therapy; Z03.818 Encounter for observation for suspected exposure to other biological agents ruled out
CPT/HCPCS: 36415; 73564; 80053; 85025; 87635; 93971; 97162; 99284

== ENCOUNTER → 2025-05-30 11:46 | Outpatient (BNV) | payer MEDICARE, OTHER, SELFPAY | PROVIDERS: Emergency Provider Emergency Medicine; PCP Internal Medicine; Visit Provider Radiology Diagnostic Radiology | DX: M79.605 Pain in left leg (principal); M25.462 Effusion, left knee; M17.12 Unilateral primary osteoarthritis, left knee | CPT/HCPCS: 73564; 93971 ==